=== PATIENT | male | born 1960 | race Two or more races ===

== ENCOUNTER 2024-05-02 14:03 | Outpatient (OUT) | payer OTHER, SELFPAY ==
--- NOTE | 2024-05-02 14:16 | ECG_ITS ---
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
--- NOTE | 2024-05-02 14:53 | XR_ITS ---
The [address] [address] Patient Name: NADINE KENNEY MRN: [id number] date: 1960 Sex: M Assigned Patient Location: [facility] Current Patient Location: Accession/Order Number: [id number] Exam Date: 05/02/2024 15:20 Report Date: 05/03/2024 07:15 At the request of: PEEWEE ABBOTT Procedure: XR chest 2V EXAMINATION: XR chest 2V HISTORY: Preop exam COMPARISON: No relevant comparison available. FINDINGS: LUNGS: No significant pulmonary parenchymal abnormalities. VASCULATURE: No increased pulmonary vasculature. PLEURA: No pneumothorax, effusion, or pleural thickening. CARDIAC: No cardiomegaly or cardiac silhouette abnormality. MEDIASTINUM: No visible mass or adenopathy. BONES: No fracture or visible bone lesion. OTHER: Negative. XR/XR chest 2V IMPRESSION: 1. No acute cardiopulmonary process. Electronically authenticated by: JUAN GARCÍA Date: 05/03/2024 07:15
--- NOTE | 2024-05-02 15:06 | P.GSHP_ITS ---
History of Present Illness History of Present Illness Chief complaint: elevated psa bph with obstruction Narrative: Patient presents for preadmission testing. The patient states he had an abnormal PSA followed by an abnormal prostate MRI. The patient states he has no hematuria or dysuria but does have frequency with urination which he attributes to taking a diuretic for extremity edema. Review of Systems ROS Narrative REVIEW OF SYSTEMS: Negative except as stated in HPI, ten or more systems reviewed. Constitutional: No fever, chills, weakness ENT: No sore throat or epistaxis Cardiovascular: No chest pain, palpitations, or activity intolerance Respiratory: No shortness of breath, cough, or wheezing Musculoskeletal: No joint pain or swelling Gastrointestinal: No abdominal pain, constipation, diarrhea, or vomiting Genitourinary: No dysuria or hematuria Neurological: No numbness, tingling, weakness, or headache Psychiatric: No mood changes PFSH PFS Medical History (Updated 05/02/24 @ 15:09 by Raina Sands NP) Abnormal prostate exam ?R39.89 - Other symptoms and signs involving the genitourinary system (ICD- 10) Arthritis ?M19.90 - Unspecified osteoarthritis, unspecified site (ICD-10) Cellulitis ?L03.90 - Cellulitis, unspecified (ICD-10) Sleep apnea ?G47.30 - Sleep apnea, unspecified (ICD-10) Depression ?F32.A - Depression, unspecified (ICD-10) BPH with urinary obstruction ?N40.1 - Benign prostatic hyperplasia with lower urinary tract symptoms (ICD- 10) ?N13.8 - Other obstructive and reflux uropathy (ICD-10) Elevated PSA ?R97.20 - Elevated prostate specific antigen [PSA] (ICD-10) Extremity edema ?R60.0 - Localized edema (ICD-10) High cholesterol ?E78.00 - Pure hypercholesterolemia, unspecified (ICD-10) Hypertension ?I10 - Essential (primary) hypertension (ICD-10) Surgical History (Updated 05/02/24 @ 14:53 by Raina Sands NP) H/O removal of cyst ?Z98.890 - Other specified postprocedural states (ICD-10) H/O gastric sleeve ?Z90.3 - Acquired absence of stomach [part of] (ICD-10) History of colonoscopy ?Z98.890 - Other specified postprocedural states (ICD-10) History of arthroscopy of shoulder ?Z98.890 - Other specified postprocedural states (ICD-10) History of arthroplasty of knee ?Z96.659 - Presence of unspecified artificial knee joint (ICD-10) Family History (Updated 05/02/24 @ 14:48 by Raina Sands NP) Other Cancer Family history of diabetes mellitus Family history of hypertension Family history of liver cancer Social History (Updated 05/02/24 @ 14:45 by Raina Sands NP) Within the past year, how often did you have a drink containing alcohol: 4 or more times a week Within the past year, how many standard drinks containing alcohol did you have on a typical day: 1 or 2 Total score: 0 Score interpretation: A score less than 4 is consistent with normal alcohol consumption. Smoking status: Former smoker Non-prescribed substance use: cannabis (any form) Highest level of school completed/degree received: high school graduate Meds Home Medications and Allergies Home Medications ?Medication ?Instructions ?Recorded ?Confirmed ?Type allopurinol 300 mg tablet 300 mg PO DAILY 05/02/24 05/02/24 History amlodipine 10 mg tablet 10 mg PO DAILY 05/02/24 05/02/24 History furosemide 40 mg tablet 40 mg PO DAILY 05/02/24 05/02/24 History losartan 100 mg tablet 100 mg PO DAILY 05/02/24 05/02/24 History metoprolol succinate 100 mg 100 mg PO DAILY 05/02/24 05/02/24 History tablet,extended release 24 hr multivitamin (Daily Multi-Vitamin 1 tab PO DAILY 05/02/24 05/02/24 History tablet) potassium chloride 10 mEq 10 meq PO DAILY 05/02/24 05/02/24 History capsule,extended release sertraline 25 mg tablet 25 mg PO DAILY 05/02/24 05/02/24 History tamsulosin 0.4 mg capsule 0.8 mg PO Q24H 05/02/24 05/02/24 History Allergies Allergy/AdvReac Type Severity Reaction Status Date / Time No Known Drug Allergies Allergy Verified 05/02/24 14:39 Exam Narrative Exam Narrative: Constitutional: Awake, alert, comfortable, well-appearing, nontoxic, interactive, vital signs as charted Head: Normocephalic, atraumatic Neck: Supple, normal appearance, normal range of motion, no meningeal signs, no lymphadenopathy Respiratory: No respiratory distress, breath sounds clear Cardiovascular: Regular rate and rhythm, strong and regular heart tones Abdomen: Nontender, normal bowel sounds, soft, no CVA tenderness Musculoskeletal: Normal gait, no swelling, 2+ pedal edema bilaterally Skin: No rashes or induration, no lesions, only visible skin inspected Neuro: No neurological deficits, normal sensation Psychiatric: Oriented ?3, normal affect Assessment and Plan Assessment and Plan (1) Elevated PSA: (2) BPH with urinary obstruction: (3) Abnormal prostate exam: Plan MRI fusion transrectal prostate biopsy scheduled with Dr. Pinto May 07, 2024.
[2024-05-02 15:17] LABS: Hematocrit 40.9 % (42.0-54.0); Hemoglobin 13.6 g/dL (14.0-18.0); Mean Corpuscular HGB Conc 33.3 g/dL (29.9-35.2); Mean Corpuscular Hemoglobin 32.1 pg (25.9-34.0); Mean Corpuscular Volume 96.5 fL (80.0-94.0); Mean Platelet Volume 9.8 fL (9.5-13.5); Platelet Count 246 10^3/uL (150-450); Red Blood Count 4.24 10^6/uL (4.70-6.10); White Blood Count 19.6 10^3/uL (4.0-11.0)
[2024-05-02 15:35] LABS: Anion Gap 10.8; BUN Creatinine Ratio 18.7; Calcium 8.9 mg/dL (8.5-10.1); Carbon Dioxide 31.2 mmol/L (21.0-32.0); Chloride 105 mmol/L (98-107); Estimated GFR (African America >60 (>=60); Estimated GFR (Non-African Ame >60 (>=60); Glucose 122 mg/dL (74-106); Sodium 143 mmol/L (136-145)
[2024-05-02 15:51] LABS: Band Neutrophils Absolute 0.4 10^3/uL (0.0-0.3); Monocytes Absolute Manual 0.19 10^3/uL (0.30-0.80)
[2024-05-02 15:52] LABS: Anisocytosis 1+; Smudge Cells SEEN
== END 2024-05-02 14:04 | disposition home or self-care (01) ==
PROVIDERS: Visit Provider Urology
DX: Z01.810 Encounter for preprocedural cardiovascular examination (principal); Z01.812 Encounter for preprocedural laboratory examination; Z01.818 Encounter for other preprocedural examination; R97.20 Elevated prostate specific antigen [PSA]; N40.1 Benign prostatic hyperplasia with lower urinary tract symptoms
CPT/HCPCS: 71046; 80048; 85007; 85027; 93005; G0463

== ENCOUNTER 2024-05-07 11:11 | Day surgery (SDC) | payer OTHER, SELFPAY ==
[2024-05-02 15:02] VITALS: BP 127/68; PULSE 62; TEMP 36.5; O2SAT 96; BMI 36.2
[2024-05-07] VITALS (9 sets, daily range): BP systolic 146–163; BP diastolic 78–106; PULSE 50–72; TEMP 36.3–36.4; O2SAT 93–98; BMI 36.2
--- OUTSIDE RECORDS SUMMARY | 2024-05-07 11:34 | XMS_ITS | CCD ---
Author Organization [facility] Care Team Providers Care Golf Course Manager Name Role Phone ADÁN FIGUEROA Unavailable Unavailable MERLOSISRAEL SMITH Unavailable Unavailable ADÁN FIGUEROA Unavailable Unavailable MERLOSISRAEL LAZARO Unavailable Unavailable ADÁN FIGUEROA Unavailable Unavailable ADÁN FIGUEROA Unavailable Unavailable MERLOS, ISRAEL Hood Unavailable Unavailable MERLOSISRAEL SMITH Primary Care Unavailable ISRAEL MERLOS Referring Unavailable ISRAEL MERLOS Primary Care Unavailable LEANN PENA Referring Unavailable ISRAEL MERLOS Primary Care Unavailable Israel Merlos Primary Care Provider Unavailab Les Reyes Attending Provider Unavailable Israel Merlos Primary Care Provider Unavail able MATEO JUAN Primary Care Physician Lo Michel Unavailable NINFA Michel Attending Provider DO Zion Gaffney Primary Care Provider JOSÉ MIGUEL DIXON Primary Care Physician HAO SIMS Primary Care Physician [phone] MD Millie Pinto Attending Provider [phone] NON STAFF Primary Care Provider Unavailming e NON STAFF Primary Care Unavailable Millie Pinto Attending Unavailable Millie Pinto Admitting Unavailable Rachel Lancaster Attending Unavailable Rachel Lancaster Attending Unavailable Millie Pinto. Attending Unavailable HAO SIMS Admitting UnavailHAO Fontenot Attending Unavailabl e NAHOMY DIXON Consulting Unavailabl e NICOLE JOSÉ MIGUEL A Consulting Unavailable NICOLE JOSÉ MIGUEL A Consulting Unavailable JOSÉ MIGUEL DIXON Consulting Unavailable NICOLE JOSÉ MIGUEL A Consulting Unavailable NICOLE, JOSÉ MIGUEL A Consulting Unavailable NICOLE, JOSÉ MIGUEL A Consulting Unavailable JOSÉ MIGUEL DIXON Consulting Unavailable JOSÉ MIGUEL DIXON Consulting Unavailable NICOLE, NAHOMY Vanegas Admitting Unavailming DIXON, NAHOMY Vanegas Attending Unavailming DIXON, NAHOMY Vanegas Admitting Unavailabl marimar DIXON, NAHOMY Vanegas Attending UnavailMillie Gonzalez Attending Unavailable HAO SIMS Attending HAO Monzon Attending UnavailHAO Fontenot Attending UnavailMATEO Camacho Attending Unavailable NICOLE, NAHOMY Vanegas Attending Rachel Porras Attending Unavailable Rachel Lancaster Attending Unavailable Rachel Lancaster Attending Unavailable Rachel Lancaster Attending Unavailable Rachel Lancaster Attending Unavailable Unavailable Unavailable Unavailable Medications Current Medications Medication Drug Class(es) Dates Sig (Normalized) Sig (Original) allopurinol 300 mg oral tablet (20 sources) Xanthine Oxidase Inhibitor Start: 12-24-2023 take 1 tablet by mouth once daily allopurinol 300 mg Tab 300 mg = 1 tab(s), Oral, Daily, # 90 tab(s), Refills(s) 3, Pharmacy: [facility], 170, cm, 12/24/23 11:32:00 EDT, Height/Length Dosing, 128.4, kg, 12/24/23 11:32:00 EDT, Weight Dosing Start Date: 12/24/23 Status: Ordered Start: 12-07-2022 take 1 tablet by sheryl th once daily allopurinol 300 mg Tab 300 mg = 1 tab(s), Oral, Daily, # 90 tab(s), Refills(s) 1, Pharmacy: [facility] [place] [id number], 170, cm, 12/07/22 9:04:00 EST, Height/Length Dosing, 136.7, kg, 12/07/22 9:04:00 EST, Weight Dosing Start Date: 12/07/22 Status: Ordered Start: 11-19-2019 take 100 mg by mouth once jessee y Allopurinol Active 100 MG Oral Daily November 19, 2019 7:55am Start: 11-19-2019 take 300 mg by mouth once daily in the morning Allopurinol Active 300 MG PO Every morning November 19, 2019 1:00am Start: 09-22-2019 take 1 tablet by sheryl th once daily allopurinol 300 mg Tab 300 mg = 1 tab(s), Oral, Daily, # 90 tab(s), Refills(s) 1, Pharmacy: [facility], 170, cm, 09/20/22 16:46:00 EST, Height/Length Dosing, 130, kg, 09/20/22 16:46:00 EST, Weight Dosing Start Date: 09/21/22 Status: Ordered take 300 mg by mouth once daily ALLOPURINOL PO Take 300 mg by mouth daily 0 Active amLODIPine 10 mg oral tablet (20 sources) Dihydropyridine Calcium Channel Kelly Start: 12-24-2023 End: 12-18-2024 take 1 tablet by mouth once daily amLODIPine 10 mg Tab 10 mg, Oral, Daily, X 90 day(s), # 90 tab(s), Refills(s) 3, Pharmacy: [facility], 170, cm, 12/24/23 11:32:00 EDT, Height/Length Dosing, 128.4, kg, 12/24/23 11:32:00 EDT, Weight Dosing Start Date: 12/24/23 Stop Date: 12/18/24 Status: Ordered Start: 09-22-2019 End: 06-05-2023 take 1 tablet by mouth once daily amLODIPine 10 mg Tab 10 mg, Oral, Daily, X 90 day(s), # 90 tab(s), Refills(s) 1, Pharmacy: [facility] [place] [id number], 170, cm, 12/07/22 9:04:00 EST, Height/Length Dosing, 136.7, kg, 12/07/22 9:04:00 EST, Weight Dosing Start Date: 12/07/22 Stop Date: 06/05/23 Status: Ordered calcium citrate 950 mg oral tablet (4 sources) Start: 11-19-2019 take 200 mg by mouth once daily Calcium Citrate Active 200 MG PO Daily November 19, 2019 1:00am dextromethorphan hydrobromide 3 mg/ml / promethazine hydrochloride 1.25 mg/ml oral solution (1 source) Phenothiazine, Uncompetitive N-fwexdq-K-aspartate Receptor Antagonist, Sigma-1 Agonist Start: 09-20-2022 take 5 mL by mouth every six hours for cough dextromethorphan -promethazine 15 mg-6.25 mg/5 mL Oral Syrup 5 mL 5 mL, Oral, q6hr for cough, 120 mL, Refill(s) 0, [facility], 170, cm, 09/20/22 16:46:00 EST, Height/Length Dosing, 130, kg, 09/20/22 16:46:00 EST, Weight Dosing Start Date: 09/20/22 Status: Ordered docusate sodium 100 mg oral capsule (2 sources) Start: 04-05-2020 take 1 capsule by mouth twice daily Docusate Sodium (Dok) 100 mg Capsule Active 100 MG PO Twice daily 0 April 05, 2020 12:00am fluticasone propionate 0.05 mg/actuat metered dose nasal spray (1 source) Corticosteroid Start: 03-03-2019 take 1 spray(s) nasal route once daily fluticasone (FLONASE) 50 MCG/ACT nasal spray Indications: Acute frontal sinusitis, recurrence not specified 1 spray by Each Nostril route daily 1 Bottle 0 03/03/2019 Active furosemide 40 mg oral tablet (20 sources) Loop Diuretic Start: 12-24-2023 take 1 tablet by mouth once daily furosemide 40 mg Tab 40 mg = 1 tab(s), Oral, Daily, # 90 tab(s), Refills(s) 2, Pharmacy: [facility], 170, cm, 12/24/23 11:32:00 EDT, Height/Length Dosing, 128.4, kg, 12/24/23 11:32:00 EDT, Weight Dosing Start Date: 12/24/23 Status: Ordered Start: 03-16-2020 take 1 tablet by sheryl th once daily furosemide 40 mg Tab 40 mg = 1 tab(s), Oral, Daily, # 90 tab(s), Refills(s) 1, Pharmacy: [facility] [place] [id number], 170, cm, 12/07/22 9:04:00 EST, Height/Length Dosing, 136.7, kg, 12/07/22 9:04:00 EST, Weight Dosing Start Date: 12/07/22 Status: Ordered Start: 11-19-2019 End: 12-30-2019 take 40 mg by mouth once daily Furosemide Discontinued 40 MG PO Daily November 19, 2019 1:00am December 30, 2019 11:52pm take 1 mL by mouth twice daily F urosemide 40 MG/4ML 1 ml Orally Twice a day Not-Taking take 1 tablet by sheryl th twice daily furosemide (LASIX) 40 MG tablet Take 40 mg by mouth 2 times daily 0 Active hydroCHLOROthiazide 25 mg oral tablet (8 sources) Thiazide Diuretic Start: 04-05-2020 take 25 mg by mouth once daily in the morning Hydrochlorothiazide Active 25 MG PO Every morning 0 April 05, 2020 1:00pm Start: 03-25-2020 End: 04-05-2020 take 50 mg by mouth once daily in the morning Hydrochlorothiazide Discontinued 50 MG PO Every morning March 25, 2020 12:00am April 05, 2020 1:01pm Start: 03-22-2020 End: 03-25-2020 take 50 mg by mouth once daily Hydrochlorothiazide Discontinued 50 MG PO Daily March 22, 2020 12:00am March 25, 2020 3:29pm take 0.5 tablet [address] [facility] once daily hydroCHLOROthiazide 50 MG 1/2 tablet Orally Once a day for 30 day(s) Not-Taking take 1 tablet by sheryl once daily hydrochlorothiazide (HYDRODIURIL) 25 MG tablet Take 25 mg by mouth daily 0 Active ibuprofen 800 mg oral tablet (4 sources) Nonsteroidal Anti-inflammatory Drug Start: 09-20-2022 take 1 tablet by mouth every eight hours ibuprofen 800 mg Tab 800 mg = 1 tab(s), Oral, q8hr, # 30 tab(s), Refills(s) 0, Pharmacy: [facility], 170, cm, 09/20/22 16:46:00 EST, Height/Length Dosing, 130, kg, 09/20/22 16:46:00 EST, Weight Dosing Start Date: 09/20/22 Status: Ordered Start: 05-10-2017 take 1 tablet by sheryl every eight hours Ibuprofen 800 MG 1 tablet with food or milk Orally Three times a day for 30 day(s) May, Not-Taking LORazepam 0.5 mg oral tablet (6 sources) Benzodiazepine Start: 02-18-2024 take 0.25 mg by mouth twice daily Ativan 0.5 mg Tab 0.25 mg = 0.5 tab(s), Oral, BID, # 60 tab(s), Refills(s) 0, Pharmacy: [facility], 170, cm, 02/18/24 11:02:00 EDT, Height/Length Dosing, 121, kg, 02/18/24 11:02:00 EDT, Weight Dosing Start Date: 02/18/24 Status: Ordered losartan potassium 100 mg oral tablet (20 sources) Angiotensin 2 Receptor Kelly Start: 12-24-2023 End: 09-19-2024 take 1 tablet by mouth once daily losartan 100 mg Tab 100 mg, Oral, Daily, X 90 day(s), # 90 tab(s), Refills(s) 2, Pharmacy: [facility], 170, cm, 12/24/23 11:32:00 EDT, Height/Length Dosing, 128.4, kg, 12/24/23 11:32:00 EDT, Weight Dosing Start Date: 12/24/23 Stop Date: 09/19/24 Status: Ordered Start: 06-11-2022 End: 06-05-2023 take 1 tablet by mouth once daily losartan 100 mg Tab 100 mg, Oral, Daily, X 90 day(s), # 90 tab(s), Refills(s) 1, Pharmacy: [facility] [place] [id number], 170, cm, 12/07/22 9:04:00 EST, Height/Length Dosing, 136.7, kg, 12/07/22 9:04:00 EST, Weight Dosing Start Date: 12/07/22 Stop Date: 06/05/23 Status: Ordered Start: 04-05-2020 take 50 mg by mouth once daily in the morning Losartan Active 50 MG PO Every morning 0 April 05, 2020 1:00pm Start: 09-22-2019 End: 04-05-2020 take 100 mg by mouth once daily in the morning Losartan Discontinued 100 MG PO Every morning November 19, 2019 1:00am April 05, 2020 1:01pm Losartan Potassi um 100 MG 1/2 Orally Once a day Active take 100 mg by mouth once daily Losartan Potassium (COZAAR PO) Take 100 mg by mouth daily 0 Active 24 hr metoprolol succinate 100 mg extended release oral tablet (20 sources) beta-Adrenergic Kelly Start: 12-24-2023 End: 12-18-2024 take 1 tablet by mouth once daily metoprolol 100 mg ER Tab 100 mg = 1 tab(s), Oral, Daily, X 90 day(s), # 90 tab(s), Refills(s) 3, Pharmacy: [facility], 170, cm, 12/24/23 11:32:00 EDT, Height/Length Dosing, 128.4, kg, 12/24/23 11:32:00 EDT, Weight Dosing Start Date: 12/24/23 Stop Date: 12/18/24 Status: Ordered Start: 09-22-2019 End: 06-05-2023 take 1 tablet by mouth once daily metoprolol 100 mg ER Tab 100 mg = 1 tab(s), Oral, Daily, X 90 day(s), # 90 tab(s), Refills(s) 1, Pharmacy: [facility] [place] [id number], 170, cm, 12/07/22 9:04:00 EST, Height/Length Dosing, 136.7, kg, 12/07/22 9:04:00 EST, Weight Dosing Start Date: 12/07/22 Stop Date: 06/05/23 Status: Ordered Metoprolol Succi wade Active take 100 mg by mouth twice daily Metoprolol Succinate (TOPROL XL PO) Take 100 mg by mouth 2 times daily 0 Active Multi Complete (1 source) Multi Complete A ctive Multi Vitamin+ (17 sources) Start: 09-22-2019 Multi Vitamin+ Refill(s) 0, Prophylaxis Start Date: 09/22/19 Status: Ordered Start: 09-22-2019 Multi Vitamin+ Refill(s) 0 Start Date: 09/22/19 Status: Ordered Multiple Vitamins-Minerals (THERAPEUTIC MULTIVITAMIN-MINERALS) tablet (1 source) take 1 tablet by mouth once daily Multiple Vitamins-Minerals (THERAPEUTIC MULTIVITAMIN-MINERALS) tablet Take 1 tablet by mouth daily 0 Active Multivitamin (Multiple Vitamins) Tablet (2 sources) Start : 11-19 take 1 tablet by mouth once daily Multivitamin (Multiple Vitamins) Tablet Active 1 TAB PO Daily November 19, 2019 1:00am Multivitamin preparation (2 sources) Start : 11-19 take 1 tablet by mouth once daily Multivitamin Active 1 TAB Oral Daily November 19, 2019 8:00am Oflgoqyvgjgk-Tpe-Ouvz-Fa-Vit K (Bariatric Multivitamins) 45 mg iron- 800 mcg-120 mcg Capsule (2 sources) Start : 03-16 take 1 capsule by mouth once daily in the morning Nprpfmyspsje-Kbt-Bbej-Fa-Vi t K (Bariatric Multivitamins) 45 mg iron- 800 mcg-120 mcg Capsule Active 1 CAP PO Every morning March 16, 2020 12:00am oxyCODONE hydrochloride 5 mg oral tablet (6 sources) Opioid Agonist Start : 03-25 End: 04-05 take 5 mg by mouth every four hours Oxycodone Active 5 MG PO Every 4 hours 0 April 05, 2020 Start: 03-25-2020 End: 04-05-2020 take 10 mg by mouth every four hours Oxycodone Discontinued 10 MG PO Every 4 hours March 25, 2020 April 05, 2020 1:01pm polymyxin b [id number] unt/ml / trimethoprim 1 mg/ml ophthalmic solution (3 sources) Dihydrofolate Reductase Inhibitor Antibacterial, Polymyxin-class Antibacterial Start: 11-15-2022 take 1 drop(s) into the eye(s) four times daily polymyxin B-trimethoprim Opth Estrella 1 drop(s), Eye-Both, QID, 10 mL, Refill(s) 0, [facility], 170, cm, 11/15/22 15:50:00 EST, Height/Length Dosing, 134.3, kg, 11/15/22 15:50:00 EST, Weight Dosing Start Date: 11/15/22 Status: Ordered sertraline 25 mg oral tablet (6 sources) Serotonin Reuptake Inhibitor Start: 02-18-2024 take 1 tablet by mouth once daily Zoloft 25 mg Tab 25 mg = 1 tab(s), Oral, Daily, # 30 tab(s), Refills(s) 3, Pharmacy: [facility], 170, cm, 02/18/24 11:02:00 EDT, Height/Length Dosing, 121, kg, 02/18/24 11:02:00 EDT, Weight Dosing Start Date: 02/18/24 Status: Ordered tamsulosin hydrochloride 0.4 mg oral capsule (20 sources) alpha-Adrenergic Kelly Start: 12-24-2023 take 2 capsules by mouth once daily tamsulosin 0.4 mg Cap 0.8 mg = 2 cap(s), Oral, Daily, # 180 cap(s), Refills(s) 3, Pharmacy: [facility], 170, cm, 12/24/23 11:32:00 EDT, Height/Length Dosing, 128.4, kg, 12/24/23 11:32:00 EDT, Weight Dosing Start Date: 12/24/23 Status: Ordered Start: 06-11-2022 End: 12-08-2022 take 2 capsules by mouth once daily tamsulosin 0.4 mg Cap 0.8 mg = 2 cap(s), Oral, Daily, # 180 cap(s), Refills(s) 1, Pharmacy: [facility] [place] [id number], 170, cm, 12/07/22 9:04:00 EST, Height/Length Dosing, 136.7, kg, 12/07/22 9:04:00 EST, Weight Dosing Start Date: 12/07/22 Status: Ordered Start: 12-05-2021 take 2 capsules by m [facility] once daily tamsulosin 0.4 mg Cap 0.8 mg = 2 cap(s), Oral, Daily, # 60 cap(s), Refills(s) 0, Pharmacy: [facility], 170, cm, 12/05/21 15:51:00 EST, Height/Length Dosing, 129, kg, 12/05/21 15:51:00 EST, Weight Dosing Start Date: 12/05/21 Status: Ordered Start: 11-19-2019 take 0.8 mg by mouth once jessee y Tamsulosin Active 0.8 MG Oral Daily November 19, 2019 7:55am Start: 11-19-2019 take 0.4 mg by mouth once jessee y Tamsulosin Active 0.4 MG PO Daily November 19, 2019 1:00am Tamsulosin HCl A ctive take 1 capsule by mo uth once daily tamsulosin (FLOMAX) 0.4 MG capsule Take 0.4 mg by mouth daily 0 Active Ventolin HFA 90 mcg/inh Aerosol-Adpt (3 sources) Start: 09-20-2022 take 2 puff(s) by inhalation four times daily for wheezing Ventolin HFA 90 mcg/inh Aerosol-Adpt 2 puff(s), Inhalation, QID for wheezing, 18 gram, Refill(s) 0, [email or web address], 170, cm, 09/20/22 16:46:00 EST, Height/Length Dosing, 130, kg, 09/20/22 16:46:00 EST, Weight Dosing Start Date: 09/20/22 Status: Ordered Completed/Discontinued Medications Medication Drug Class(es) Dates Sig (Normalized) Sig (Original) acetaminophen 325 mg / oxyCODONE hydrochloride 5 mg oral tablet (1 source) Opioid Agonist Start: 03-17-2020 take 1-2 tablets by mouth every four to six hours as needed for pain Percocet 5-325 MG 1-2 tablet as needed for pain Orally every 4-6 hrs for 7 days DO NOT FILL UNTIL 03/21/2020 NEEDED FOR POST OP PAIN. Mar, Not-Taking amoxicillin 500 mg oral capsule (1 source) Penicillin-class Antibacterial Start: 08-02-2020 Amoxicillin 500 MG 6 tabs 1 hour prior to dental and 3 tabs 6hours after dental Orally as directed for 1 days Aug, Not-Taking Bariatric Multivitamins/Iron (1 source) Bariatric Multivitamins/Iron Not-Taking cephalexin 500 mg oral capsule (4 sources) Cephalosporin Antibacterial Start: 11-19-2019 End: 12-30-2019 take 500 mg by mouth every twelve hours Cephalexin Discontinued 500 MG PO Q12H November 19, 2019 1:00am December 30, 2019 11:52pm Start: 12-18-2017 take 1 capsule by [facility] every eight hours Keflex 500 MG 1 capsule Orally every 8 hrs for 10 day(s) Nov, Not-Taking diclofenac sodium 75 mg delayed release oral tablet (4 sources) Nonsteroidal Anti-inflammatory Drug Start: 12-25-2017 take 1 tablet by mouth every twelve hours Diclofenac Sodium 75 MG 1 tablet Orally Twice a day for 30 day(s) Mar, Not-Taking Start: 03-19-2017 Voltaren 1 % 1 -2 gm to affected area(s) Transdermal twice daily May, Not-Taking hydroCHLOROthiazide 12.5 mg / lisinopril 10 mg oral tablet (4 sources) Thiazide Diuretic, Angiotensin Converting Enzyme Inhibitor Start: 11-19-2019 End: 03-22-2020 take 1 tablet by mouth once daily in the morning Lisinopril-Hydrochlorothiazide Discontinued 1 TAB PO Every morning November 19, 2019 1:00am March 22, 2020 1:40pm hydrOXYzine pamoate 50 mg oral capsule (5 sources) Antihistamine Start: 03-25-2020 End: 04-05-2020 take 25 mg by mouth every three hours Hydroxyzine Pamoate Discontinued 25 MG PO Q3H March 25, 2020 12:00am April 05, 2020 1:01pm Start: 03-25-2020 End: 04-05-2020 take 50 mg by mouth every three hours Hydroxyzine Pamoate Discontinued 50 MG PO Q3H March 25, 2020 12:00am April 05, 2020 1:01pm Start: 03-17-2020 take 1 capsule by mo ut every eight hours as needed for muscle spasms Vistaril 25 MG 1 capsule as needed for muscle spasm Orally every 8 hrs Do not fill until 03/21/2020. To be used post op TKA Mar, Not-Taking ketorolac tromethamine 10 mg oral tablet (3 sources) Nonsteroidal Anti-inflammatory Drug, Cyclooxygenase Inhibitor Start: 11-19-2019 End: 12-30-2019 take 10 mg by mouth every six hours Ketorolac Discontinued 10 MG PO Q6H 10 5 November 19, 2019 1:00am December 30, 2019 11:52pm naproxen 500 mg oral tablet (1 source) Nonsteroidal Anti-inflammatory Drug take 1 tablet by mouth twice daily Naproxen Sodium 500 mg 1 tablet Orally Twice a day for 10 days Not-Taking polyethylene glycol 3350 [id number] mg / potassium chloride 1480 mg / sodium bicarbonate 5720 mg / sodium chloride 28256 mg powder for oral solution (2 sources) Osmotic Laxative Start: 10-18-2022 Rudolph Lancaster oral powder for reconstitution See Instructions, 1 EA, Refill(s) 0, Prior to colonoscopy., [facility], 170, cm, 10/18/22 12:08:00 EST, Height/Length Dosing, 136.9, kg, 10/18/22 12:08:00 EST, Weight Dosing Start Date: 10/18/22 Status: Ordered potassium chloride 10 meq extended release oral capsule (20 sources) Start: 01-31-2024 take 1 capsule by mouth once daily potassium chloride 10 mEq Cap-ER 10 mEq = 1 cap(s), Oral, Daily, # 90 cap(s), Refills(s) 3, Pharmacy: [facility], 170, cm, 12/24/23 11:32:00 EDT, Height/Length Dosing, 128.4, kg, 12/24/23 11:32:00 EDT, Weight Dosing Start Date: 01/31/24 Status: Ordered Start: 12-24-2023 take 1 capsule by [facility] once daily potassium chloride 10 mEq Cap-ER 10 mEq = 1 cap(s), Oral, Daily, # 90 cap(s), Refills(s) 3, Pharmacy: [facility], 170, cm, 12/24/23 11:32:00 EDT, Height/Length Dosing, 128.4, kg, 12/24/23 11:32:00 EDT, Weight Dosing Start Date: 12/24/23 Status: Ordered Start: 06-11-2022 End: 12-08-2022 take 1 capsule by mouth once daily potassium chloride 10 mEq Cap-ER 10 mEq = 1 cap(s), Oral, Daily, # 90 cap(s), Refills(s) 1, Pharmacy: [facility] [place] [id number], 170, cm, 12/07/22 9:04:00 EST, Height/Length Dosing, 136.7, kg, 12/07/22 9:04:00 EST, Weight Dosing Start Date: 12/07/22 Status: Ordered Start: 03-16-2020 End: 04-05-2020 take 10 mEq by mouth once daily in the morning Potassium Chloride Discontinued 10 MEQ PO Every morning March 16, 2020 12:00am April 05, 2020 1:01pm Start: 09-22-2019 take 1 capsule by [facility] twice daily potassium chloride 10 mEq Cap-ER mEq cap(s), Oral, BID, Refills(s) 0 Start Date: 09/22/19 Status: Ordered Start: 09-22-2019 take 1 capsule by [facility] twice daily potassium chloride 10 mEq Cap-ER mEq cap(s), Oral, BID, Refills(s) 0 Start Date: 09/22/19 Status: Ordered Potassium Chlori de Active [facility] Potassium Chloride (K-TAB PO) Take 10 mEq by mouth daily 0 Active Potassium gluconate (1 source) Potassium Glucon ate Not-Taking predniSONE 10 mg oral tablet (1 source) predniSONE 10 MG (Prior Auth: Rx Ref#:[id number]) Oral for 8 Not-Taking rivaroxaban 10 mg oral tablet (3 sources) Factor Xa Inhibitor Start: 0 End: 0 take 1 tablet by mouth once daily Rivaroxaban (Xarelto) 10 mg Tablet Discontinued 10 MG PO Daily March 25, 2020 12:00am April 05, 2020 1:01pm Triamcinolone (6 sources) Corticosteroid Start: 8 Kenalog -40 mg Jul, 40 mg Start: 12-18-2017 Kenalog -40 mg Nov, Start: 05-10-2017 Kenalog -40 mg May, 40 mg valsartan 320 mg oral tablet (1 source) Angiotensin 2 Receptor Kelly Valsartan 320 MG Ora lly Not-Taking Vitamin D3 (1 source) Vitamin D3 Not-T aking Zinc (1 source) Zinc Not-Taking Problems Active Problems Problem Classification Problem Date Documented Date Episodic/Chronic Adjustment disorders (8 sources) Adjustment disorder with mixed disturbance of emotions AND conduct; Translations: [Adjustment disorder with mixed disturbance of emotions and conduct] Onset: 03-21-2024 Chronic Administrative/social admission (2 sources) Other reduced mobility; Translations: [Impaired mobility and activities of daily living] 03-26-2020 Episodic Anxiety disorders (8 sources) Anxiety disorder; Translations: [Anxiety disorder, unspecified] Onset: 02-18-2024 Chronic Bacterial infection; unspecified site (1 source) Bacterial infectious disease; Translations: [Other specified bacterial agents as the cause of diseases classified elsewhere] Onset: 11-15-2022 Episodic Deficiency and other anemia (12 sources) Anemia; Translations: [Anemia, unspecified] 03-26-2020 Episodic E Codes: Fall (2 sources) Fall; Translations: [Unspecified fall, initial encounter] 03-26-2020 Episodic Essential hypertension (20 sources) Essential hypertension; Translations: [Hypertensive disorder] Onset: 09-26-2017 Resolved: 06-01-2022 Chronic External cause codes: Fall (11 sources) Fall; Translations: [Fall by pediatric patient] 11-28-2023 Gout and other crystal arthropathies (12 sources) Gout; Translations: [Gout, unspecified] 03-26-2020 Chronic Hyperplasia of prostate (20 sources) Benign prostatic hypertrophy with outflow obstruction; Translations: [Benign prostatic hyperplasia with lower urinary tract symptoms] Onset: 12-07-2022 09-22-2019 Chronic Influenza (16 sources) Influenza; Translations: [Influenza due to other identified influenza virus with other respiratory manifestations] Onset: 09-20-2022 Episodic Mood disorders (14 sources) Depressive disorder; Translations: [Depression, unspecified] Onset: 02-18-2024 Chronic Open wounds of head; neck; and trunk (13 sources) Facial laceration ; Translations: [Laceration without foreign body of unspecified eyelid and periocular area, initial encounter] 03-26-2020 Episodic Osteoarthritis (4 sources) Osteoarthritis of wrist; Translations: [Primary osteoarthritis, 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 Other connective tissue disease (16 sources) History of total knee arthroplasty; Translations: [Presence of artificial knee joint, bilateral] 03-26-2020 Chronic Other connective tissue disease (1 source) Triggering of digit; Translations: [Trigger finger, left little finger] Episodic Other diseases of bladder and urethra (6 sources) Male urethral stricture; Translations: [Unspecified urethral stricture, male, unspecified site] Onset: 03-06-2024 Episodic Other nervous system disorders (2 sources) Postoperative pain ; Translations: [Other acute postprocedural pain] 03-26-2020 Episodic Other nutritional; endocrine; and metabolic disorders (1 source) Morbid (severe) obesity due to excess calories; Translations: [Morbid (severe) obesity due to excess calories] Onset: 09-05-2018 Chronic Other nutritional; endocrine; and metabolic disorders (1 source) Body mass index (BMI) 45.0-49.9, adult; Translations: [Body mass index (BMI) 45.0-49.9, adult] Onset: 09-05-2018 Chronic Other nutritional; endocrine; and metabolic disorders (1 source) Morbid obesity Chronic Other nutritional; endocrine; and metabolic disorders (2 sources) Body mass index 30+ - obesity; Translations: [Body mass index (BMI) 39.0-39.9, adult] Onset: 04-02-2019 04-02-2019 Chronic Other nutritional; endocrine; and metabolic disorders (4 sources) Body mass index 40+ - severely obese; Translations: [Body mass index (BMI) 45.0-49.9, adult] Onset: 09-05-2018 Resolved: 04-02-2019 04-02-2019 Chronic Other nutritional; endocrine; and metabolic disorders (3 sources) Obese class II; Translations: [Body mass index (BMI) 38.0-38.9, adult] Onset: 06-19-2023 Chronic Other nutritional; endocrine; and metabolic disorders (1 source) Obese class I; Translations: [Body mass index (BMI) 33.0-33.9, adult] Chronic Other nutritional; endocrine; and metabolic disorders (1 source) Body mass index (BMI) 39.0-39.9, adult Onset: 06-01-2022 Resolved: 06-01-2022 Chronic Other screening for suspected conditions (not mental disorders or infectious disease) (6 sources) Raised prostate specific antigen; Translations: [Elevated prostate specific antigen [PSA]] Onset: 03-06-2024 Episodic Pneumonia (except that caused by tuberculosis or sexually transmitted disease) (1 source) Pneumonia; Translations: [Healthcare-associate d pneumonia] Episodic Residual codes; unclassified (13 sources) Obstructive sleep apnea syndrome; Translations: [Obstructive sleep apnea (adult) (pediatric)] Onset: 09-26-2017 Chronic Residual codes; unclassified (1 source) Obstructive sleep apnea (adult) (pediatric) Onset: 06-01-2022 Resolved: 06-01-2022 Chronic Residual codes; unclassified (4 sources) Patient encounter status; Translations: [Encounter for prophylactic measures, unspecified] Onset: 06-09-2022 03-26-2020 Episodic Residual codes; unclassified (15 sources) Bilateral lower limb edema 06-11-2022 Episodic Residual codes; unclassified (20 sources) Family history of cancer of colon 10-18-2022 Episodic Residual codes; unclassified (20 sources) Family history of polyp of colon 10-18-2022 Episodic Skin and subcutaneous tissue infections (2 sources) Erysipelas; Translations: [ERYSIPELAS] Episodic Unclassified (14 sources) Patient encounter status 10-18-2022 Past or Other Problems Problem Classification Problem Date Documented Da te Episodic/Chronic Inflammation; infection of eye (except that caused by tuberculosis or sexually transmitteddisease) (12 sources) Conjunctivitis; Translations: [Unspecified conjunctivitis] Onset: 11-15-2022 Episodic Other and unspecified benign neoplasm (12 sources) Polyp of colon; Translations: [Polyp of colon] Onset: 12-25-2022 Episodic Other diseases of kidney and ureters (13 sources) Urinary tract obstruction; Translations: [Other obstructive and reflux uropathy] Onset: 12-07-2022 Episodic Residual codes; unclassified (13 sources) Localized edema; Translations: [Localized edema] Onset: 12-07-2022 Episodic Results Test Name Value Interpretation Reference Range Facil ity ISTAT XRay CREon 04-22-2024 ISTAT GFR > 60.0 Normal [facility] Comment on above: Result Comment: PERF ORMED BY: [place] [address] PATHOLOGIST [employer]ES REPAIRER DOMINGO WILKINSON M.D. Performed By: #### I SCRE #### [address] MR prostate wo/w conon 04-22 MR prostate wo/w con [facility] Main [place] [address] [place] [address] MRI Report Signed Patient: Nadine Jones JR MR#: [id number] : 1960 Acct:[id number] Age/Sex: 64 / M ADM Date: 04/22/24 Loc: Room: Type: [facility] Attending Dr: Millie Pinto MD Copies to: Millie Pinto MD Ordering Provider: Millie Pinto MD Date of Service: 04/22/24 MR/MR prostate wo/w con: R97.20 EXAMINATION: MR prostate wo/w con HISTORY: COMPARISON: NONE TECHNIQUE: Multiparametric imaging of the prostate gland was performed with IV contrast. FINDINGS: Prostate Dimensions: 5.8 x 4.4 x 5.8 cm. Prostate Volume: 77 mL Peripheral Zone: Heterogenous inT2 signal suggestive of prior prostatitis. There is diffuse T2 hypointensity involving the left aspect of the peripheral zone measuring 4.0 x 2.6 cm in greatest axial dimensions from apex to base with associated restricted diffusion and low ADC value. There is capsular bulging suggestive of extraprostatic extension. There is likely invasion into the transitional zone as well. Central/Transitional Zone: BPH changes. Seminal Vesicles: There appears to be invasion involving the base of the left seminal vesicle. Neurovascular bundles: Left neurovascular bundle involvement. Lymphadenopathy: No evidence of lymphadenopathy. Bladder: No focal lesion. Bowel: The visualized bowel is without acute abnormality. Peritoneal Cavity: Right iliopsoas bursitis. Bilateral fat filled inguinal hernias. Bones: No suspicious bony lesion. MR/MR prostate wo/w con IMPRESSION: There is diffuse T2 hypointensity involving the left aspect of the peripheral zone measuring 4.0 x 2.6 cm in greatest axial dimensions from apex to base with associated restricted diffusion and low ADC value. There is capsular bulging suggestive of extraprostatic extension with the left seminal vesicle and neurovascular bundle involvement. There is likely invasion into the transitional zone as well. PI-RADS 5. Targeting of this area on biopsy is recommended. Impression dictated by: Leandro Ceballos Jr., D.OCarmenza04/22/2024 2:50 PM Dictation Location: [facility]14 Transcribed By: [facility] 04/22/24 1450 Dictated By: Leandro Ceballos Jr, DO 04/22/24 1436 Signed By: 04/22/24 1450 Normal [facility] No Panel InformationOrdered By: Millie Pinto on 04-22-2024 Bedside Estimated GFR (eGFR) > 60.0 [facility] Whole blood creatinine measu rementOrdered By: Millie Pinto on 04-22-2024 Creatinine [Mass/Vol] 0.9 mg/dL Normal 0.6-1.3 [facility] Comment on above: ER/ESD physician is notified/shown all ISTAT results.Critical values may be confirmed by laboratory testing ifdeemed necessary by ER attending doctor. Result Comment: ER/E SD physician is notified/shown all ISTAT results. Critical values may be confirmed by laboratory testing if deemed necessary by ER attending doctor. Performed By: #### I SCRE #### [facility] [address] [place] [address] Ambulatory Visit Summaryon 0 03-31-2024 Ambulatory Visit Summary Ambulatory Visit Summary NADINE JONES JR :1960 Visit Date:03/31/2024 Ambulatory Visit Instructions Your Diagnosis Adjustment disorder with mixed disturbance of emotions AND conduct Your Care Team Attending Physician - Rachel Mayers Primary Care Physician - SERA DEL VALLE This Is Your Medications List allopurinol (allopurinol 300 mg Tab) amlodipine (amLODIPine 10 mg Tab) furosemide (furosemide 40 mg Tab) lorazepam (Ativan 0.5 mg Tab) losartan (losartan 100 mg Tab) metoprolol (metoprolol 100 mg ER Tab) multivitamin (Multi Vitamin+) potassium chloride (potassium chloride 10 mEq Cap-ER) sertraline (Zoloft 25 mg Tab) tamsulosin (tamsulosin 0.4 mg Cap) Procedures Performed Colonoscopy (12/25/2022), Optical urethrotomy (11/19/2019), Cystourethroscopy with dilation of urethral stricture (10/02/2019), Gastric sleeve, Knee replacement, Shoulder. What to do next Scheduled Follow-Up Appointments Sunday 10:00 AM EDT With: Rachel Mayers Where: [facility] Normal [address] [place] [address]-\.br\ Medications\.br\ What How Much When Why Instructions\.br\ Unchanged allopurinol (allopurinol 300 mg Tab) 1 Tablets By Mouth Every day\.br\ Unchanged amlodipine (amLODIPine 10 mg Tab) 10 Milligram By Mouth Every day Duration: 90 Days\.br\ Unchanged furosemide (furosemide 40 mg Tab) 1 Tablets By Mouth Every day\.br\ Unchanged lorazepam (Ativan 0.5 mg Tab) 0.5 Tablets By Mouth 2 times a day Depression Anxiety Non-smoker BMI 40.0-44.9, adult\.br\ Unchanged losartan (losartan 100 mg Tab) 100 Milligram By Mouth Every day Duration: 90 Days\.br\ Unchanged metoprolol (metoprolol 100 mg ER Tab) 1 Tablets By Mouth Every day Duration: 90 Days\.br\ Unchanged multivitamin (Multi Vitamin+)\.br\ Unchanged potassium chloride (potassium chloride 10 mEq Cap-ER) 1 Capsules By Mouth Every day\.br\ Unchanged sertraline (Zoloft 25 mg Tab) 1 Tablets By Mouth Every day Depression Anxiety Non-smoker BMI 40.0-44.9, adult\.br\ Unchanged tamsulosin (tamsulosin 0.4 mg Cap) 2 Capsules By Mouth Every day\.br\ Allergies\.br\ No Known Allergies\.br\ Problems\.br\ Ongoing - Any problem that you are currently receiving treatment for.\.br\ Adjustment disorder with mixed disturbance of emotions AND conduct\.br\ Anemia\.br\ Anxiety\.br\ Benign prostatic hyperplasia with outflow obstruction\.br\ Bilateral lower extremity edema\.br\ BPH with urinary obstruction\.br\ Conjunctivitis\.b r\ Depression\.br\ Elevated PSA\.br\ Facial laceration\.br\ Fall\.br\ Family history of cancer of colon\.br\ Family history of colon cancer\.br\ Family history of colonic polyps\.br\ Family history of polyp of colon\.br\ Gout\.br\ History of total knee arthroplasty.\.br \ Hypertension\.br\ Influenza A\.br\ Localized edema\.br\ Major depression, single episode\.br\ Obstructive sleep apnea syndrome\.br\ Polyp of colon\.br\ Screen for colon cancer\.br\ Unspecified urethral stricture, male, unspecified site\.br\ Urinary tract obstruction\.br\ Patient Survey\.br\ You may receive a survey via text or e-mail asking about your office visit. Please share your experience with us by completing your survey. We appreciate your feedback and thank you for choosing us for your care.\.br\ \.br\ [facility] Screenson 03-07-2024 Screens [id number] Normal [facility] Screens [id number] F Normal [facility] Ambulatory Visit Summaryon 0 03-06-2024 Ambulatory Visit Summary NADINE JONES JR :1960 Visit Date:03/06/2024 Ambulatory Visit Instructions Your Diagnosis Elevated PSA BPH with urinary obstruction Unspecified urethral stricture, male, unspecified site Tests Performed MRI Pelvis (Soft Tissue) w/ + w/o contrast -- Results Pending -- Please visit your patient portal for your results or contact your primary care physician. Your Care Team Attending Physician - Blair ROGERS, Millie Acevedo Primary Care Physician - SERA DEL VALLE This Is Your Medications List Contact prescribing physician if questions or concerns allopurinol (allopurinol 300 mg Tab) amlodipine (amLODIPine 10 mg Tab) furosemide (furosemide 40 mg Tab) lorazepam (Ativan 0.5 mg Tab) losartan (losartan 100 mg Tab) metoprolol (metoprolol 100 mg ER Tab) multivitamin (Multi Vitamin+) potassium chloride (potassium chloride 10 mEq Cap-ER) sertraline (Zoloft 25 mg Tab) tamsulosin (tamsulosin 0.4 mg Cap) Procedures Performed Colonoscopy (12/25/2022), Optical urethrotomy (11/19/2019), Cystourethroscopy with dilation of urethral stricture (10/02/2019), Gastric sleeve, Knee replacement, Shoulder. Discharge Vitals Height 180 cm Height 71 in Weight 122.3 kg Weight 269.06 lb BMI 37.75 What to do next Scheduled Follow-Up Appointments Sunday 9:00 AM EDT [facility] Normal [address] [place] [address]-\.br\ You Need to Schedule the Following Appointments\.br\ Follow Up with Blair ROGERS, Millie Acevedo, URL, URO When: \.br\ Where:\.br\ Medications\.br\ What How Much When Why Instructions\.br\ Unchanged allopurinol (allopurinol 300 mg Tab) 1 Tablets By Mouth Every day Contact prescribing physician if questions or concerns \.br\ Unchanged amlodipine (amLODIPine 10 mg Tab) 10 Milligram By Mouth Every day Duration: 90 Days Contact prescribing physician if questions or concerns \.br\ Unchanged furosemide (furosemide 40 mg Tab) 1 Tablets By Mouth Every day Contact prescribing physician if questions or concerns \.br\ Unchanged lorazepam (Ativan 0.5 mg Tab) 0.5 Tablets By Mouth 2 times a day Depression Anxiety Non-smoker BMI 40.0-44.9, adult Contact prescribing physician if questions or concerns \.br\ Unchanged losartan (losartan 100 mg Tab) 100 Milligram By Mouth Every day Duration: 90 Days Contact prescribing physician if questions or concerns \.br\ Unchanged metoprolol (metoprolol 100 mg ER Tab) 1 Tablets By Mouth Every day Duration: 90 Days Contact prescribing physician if questions or concerns \.br\ Unchanged multivitamin (Multi Vitamin+) Contact prescribing physician if questions or concerns \.br\ Unchanged potassium chloride (potassium chloride 10 mEq Cap-ER) 1 Capsules By Mouth Every day Contact prescribing physician if questions or concerns \.br\ Unchanged sertraline (Zoloft 25 mg Tab) 1 Tablets By Mouth Every day Depression Anxiety Non-smoker BMI 40.0-44.9, adult Contact prescribing physician if questions or concerns \.br\ Unchanged tamsulosin (tamsulosin 0.4 mg Cap) 2 Capsules By Mouth Every day Contact prescribing physician if questions or concerns \.br\ Allergies\.br\ No Known Allergies\.br\ Problems\.br\ Ongoing - Any problem that you are currently receiving treatment for.\.br\ Anemia\.br\ Anxiety\.br\ Benign prostatic hyperplasia with outflow obstruction\.br\ Bilateral lower extremity edema\.br\ BPH with urinary obstruction\.br\ Conjunctivitis\.b r\ Depression\.br\ Elevated PSA\.br\ Facial laceration\.br\ Fall\.br\ Family history of cancer of colon\.br\ Family history of colon cancer\.br\ Family history of colonic polyps\.br\ Family history of polyp of colon\.br\ Gout\.br\ History of total knee arthroplasty.\.br \ Hypertension\.br\ Influenza A\.br\ Localized edema\.br\ Obstructive sleep apnea syndrome\.br\ Polyp of colon\.br\ Screen for colon cancer\.br\ Unspecified urethral stricture, male, unspecified site\.br\ Urinary tract obstruction\.br\ Patient Survey\.br\ You may receive a survey via text or e-mail asking about your office visit. Please share your experience with us by completing your survey. We appreciate your feedback and thank you for choosing us for your care.\.br\ Education Materials\.br\ Prostate Cancer Screening\.br\ \.br\ Prostate cancer screening is testing that is done to check for the presence of prostate cancer in men. The prostate gland is a walnut-sized gland that is located below the bladder and in front of the rectum in males. The function of the prostate is to add fluid to semen during ejaculation. Prostate cancer is one of the most common types of cancer in men.\.br\ Who should have prostate cancer screening?\.br\ Screening recommendations vary based on age and other risk factors, as well as between the professional organizations who make the recommendations.\ .br\ In general, screening is recommended if:\.br\ ? \.br\ You are age 50 to 70 and have an average risk for prostate cancer. You should talk with your health care provider about your need for screening and how often screening should be done. Because most prostate cancers are slow growing and will not cause , screening in this age group is generally reserved for men who have a 10- to 15-year life expectancy.\.br\ ? \.br\ You are younger than age 50, and you have these risk factors:\.br\ ? \.br\ Having a father, brother, or uncle who has been diagnosed with prostate cancer. The risk is higher if your family member's cancer occurred at an early age or if you have multiple family members with prostate cancer at an early age.\.br\ ? \.br\ Being a male who is Black or is of Alex or sub-Saharan descent.\.br\ In general, screening is not recommended if:\.br\ ? \.br\ You are younger than age 40.\.br\ ? \.br\ You are between the ages of 40 and 49 and you have no risk factors.\.br\ ? \.br\ You are 70 years of age or older. At this age, the risks that screening can cause are greater than the benefits that it may provide.\.br\ If you are at high risk for prostate cancer, your health care provider may recommend that you have screenings more often or that you start screening at a younger age.\.br\ How is screening for prostate cancer done?\.br\ The recommended prostate cancer screening test is a blood test called the prostate-specific antigen (PSA) test. PSA is a protein that is made in the prostate. As you age, your prostate naturally produces more PSA. Abnormally high PSA levels may be caused by:\.br\ ? \.br\ Prostate cancer.\.br\ ? \.br\ An enlarged prostate that is not caused by cancer (benign prostatic hyperplasia, or BPH). This condition is very common in older men.\.br\ ? \.br\ A prostate gland infection (prostatitis) or urinary tract infection.\.br\ ? \.br\ Certain medicines such as male hormones (like testosterone) or other medicines that raise testosterone levels.\.br\ A rectal exam may be done as part of prostate cancer screening to help provide information about the size of your prostate gland. When a rectal exam is performed, it should be done after the PSA level is drawn to avoid any effect on the results.\.br\ Depending on the PSA results, you may need more tests, such as:\.br\ ? \.br\ A physical exam to check the size of your prostate gland, if not done as part of screening.\.br\ ? \.br\ Blood and imaging tests.\.br\ ? \.br\ A procedure to remove tissue samples from your prostate gland for testing (biopsy). This is the only way to know for certain if you have prostate cancer.\.br\ What are the benefits of prostate cancer screening?\.br\ ? \.br\ Screening can help to identify cancer at an early stage, before symptoms start and when the cancer can be treated more easily.\.br\ ? \.br\ There is a small chance that screening may lower your risk of dying from prostate cancer. The chance is small because prostate cancer is a slow-growing cancer, and most men with prostate cancer from a different cause.\.br\ What are the risks of prostate cancer screening?\.br\ The main risk of prostate cancer screening is diagnosing and treating prostate cancer that would never have caused any symptoms or problems. This is called overdiagnosisand overtreatment. PSA screening cannot tell you if your PSA is high due to cancer or a different cause. A prostate biopsy is the only procedure to diagnose prostate cancer. Even the results of a biopsy may not tell you if your cancer needs to be treated. Slow-growing prostate cancer may not need any treatment other than monitoring, so diagnosing and treating it may cause unnecessary stress or other side effects.\.br\ Questions to ask your health care provider\.br\ ? \.br\ When should I start prostate cancer screening?\.br\ ? \.br\ What is my risk for prostate cancer?\.br\ ? \.br\ How often do I need screening?\.br\ ? \.br\ What type of screening tests do I need?\.br\ ? \.br\ How do I get my test results?\.br\ ? \.br\ What do my results mean?\.br\ [facility] Patient Educationon 03-06-20 24 Patient Education Oncology Prostate Cancer Screening Prostate cancer screening is testing that is done to check for the presence of prostate cancer in men. The prostate gland is a walnut-sized gland that is located below the bladder and in front of the rectum in males. The function of the prostate is to add fluid to semen during ejaculation. Prostate cancer is one of the most common types of cancer in men. Who should have prostate cancer screening? Screening recommendations vary based on age and other risk factors, as well as between the professional organizations who make the recommendations. In general, screening is recommended if: ? You are age 50 to 70 and have an average risk for prostate cancer. You should talk with your health care provider about your need for screening and how often screening should be done. Because most prostate cancers are slow growing and will not cause , screening in this age group is generally reserved for men who have a 10- to 15-year life expectancy. ? You are younger than age 50, and you have these risk factors: ? Having a father, brother, or uncle who has been diagnosed with prostate cancer. The risk is higher if your family member's cancer occurred at an early age or if you have multiple family members with prostate cancer at an early age. ? Being a male who is Black or is of Alex or sub-Saharan descent. In general, screening is not recommended if: ? You are younger than age 40. ? You are between the ages of 40 and 49 and you have no risk factors. ? You are 70 years of age or older. At this age, the risks that screening can cause are greater than the benefits that it may provide. If you are at high risk for prostate cancer, your health care provider may recommend that you have screenings more often or that you start screening at a younger age. How is screening for prostate cancer done? The recommended prostate cancer screening test is a blood test called the prostate-specific antigen (PSA) test. PSA is a protein that is made in the prostate. As you age, your prostate naturally produces more PSA. Abnormally high PSA levels may be caused by: ? Prostate cancer. ? An enlarged prostate that is not caused by cancer (benign prostatic hyperplasia, or BPH). This condition is very common in older men. ? A prostate gland infection (prostatitis) or urinary tract infection. ? Certain medicines such as male hormones (like testosterone) or other medicines that raise testosterone levels. A rectal exam may be done as part of prostate cancer screening to help provide information about the size of your prostate gland. When a rectal exam is performed, it should be done after the PSA level is drawn to avoid any effect on the results. Depending on the PSA results, you may need more tests, such as: ? A physical exam to check the size of your prostate gland, if not done as part of screening. ? Blood and imaging tests. ? A procedure to remove tissue samples from your prostate gland for testing (biopsy). This is the only way to know for certain if you have prostate cancer. What are the benefits of prostate cancer screening? ? Screening can help to identify cancer at an early stage, before symptoms start and when the cancer can be treated more easily. ? There is a small chance that screening may lower your risk of dying from prostate cancer. The chance is small because prostate cancer is a slow-growing cancer, and most men with prostate cancer from a different cause. What are the risks of prostate cancer screening? The main risk of prostate cancer screening is diagnosing and treating prostate cancer that would never have caused any symptoms or problems. This is called overdiagnosisand overtreatment. PSA screening cannot tell you if your PSA is high due to cancer or a different cause. A prostate biopsy is the only procedure to diagnose prostate cancer. Even the results of a biopsy may not tell you if your cancer needs to be treated. Slow-growing prostate cancer may not need any treatment other than monitoring, so diagnosing and treating it may cause unnecessary stress or other side effects. Questions to ask your health care provider ? When should I start prostate cancer screening? ? What is my risk for prostate cancer? ? How often do I need screening? ? What type of screening tests do I need? ? How do I get my test results? ? What do my results mean? ? Do I need treatment? Where to find more information ? The [place] [employer]: www.cancer.org ? [place] [employer]: www.auanet.org Contact a health care provider if: ? You have difficulty urinating. ? You have pain when you urinate or ejaculate. ? You have blood in your urine or semen. ? You have pain in your back or in the area of your prostate. Summary ? Prostate cancer is a common type of cancer in men. The prostate gland is located below the bladder and in front of the rectum. This gland adds flu (more content not included)... Normal [facility] Medication Consenton 024 Medication Consent [id number] F Normal [facility] Ambulatory Visit Summaryon 0 02-18-2024 Ambulatory Visit Summary PABLITO PRIETO NADINE Mack :1960 Visit Date:02/18/2024 Ambulatory Visit Instructions Your Diagnosis Depression Anxiety Non-smoker BMI 40.0-44.9, adult Your Care Team Attending Physician - SERA DEL VALLE Primary Care Physician - SERA DEL VALLE This Is Your Medications List allopurinol (allopurinol 300 mg Tab) amlodipine (amLODIPine 10 mg Tab) furosemide (furosemide 40 mg Tab) lorazepam (Ativan 0.5 mg Tab) losartan (losartan 100 mg Tab) metoprolol (metoprolol 100 mg ER Tab) multivitamin (Multi Vitamin+) potassium chloride (potassium chloride 10 mEq Cap-ER) sertraline (Zoloft 25 mg Tab) tamsulosin (tamsulosin 0.4 mg Cap) Procedures Performed Colonoscopy (12/25/2022), Optical urethrotomy (11/19/2019), Cystourethroscopy with dilation of urethral stricture (10/02/2019), Gastric sleeve, Knee replacement, Shoulder. Discharge Vitals Heart Rate (Peripheral) 84 Blood Pressure 128/76 Height 170 cm Height 67 in Weight 121 kg Weight 266.2 lb BMI 41.87 What to do next Scheduled Follow-Up Appointments 2023 2:30 PM EDT With: Blair ROGERS, Millie Acevedo Where: [facility] Normal [address] [place] [address]-\.br\ Medications\.br\ What How Much When Why Instructions\.br\ New lorazepam (Ativan 0.5 mg Tab) 0.5 Tablets By Mouth 2 times a day Depression Anxiety Non-smoker BMI 40.0-44.9,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 0245545, [id number], 5859716 ####[facility] [address] [place] [address] ALT No additional P-5'-P [Catalytic activity/Vol] 17 Int._Unit/L Normal 6-46 [facility] Comment on above: Performed By: #### 1 6065126, 1685478, [id number], 6407870 ####[facility] [address] [place] [address] Anion gap [Moles/Vol] 9 mmol/L Normal 6-16 [facility] Comment on above: Performed By: #### 1 [id number], 9523622, 43912632, 8680297 ####[facility] [address] [place] [address] AST [Catalytic activity/Vol] 15 Int._Unit/L Normal 5-43 [facility] Comment on above: Performed By: #### 1 7434172, 8581876, 83878409, 8718494 ####[facility] [address] [place] [address] Bilirubin [Mass/Vol] 0.6 mg/dL Normal 0.0-1.1 [facility] Comment on above: Performed By: #### 1 4291281, 2140483, 87393694, 6853692 ####[facility] [address] [place] [address] Calcium [Mass/Vol] 9.4 mg/dL Normal 8.9-11.1 [facility] Comment on above: Performed By: #### 1 5139903, 5820902, 41502916, 2836660 ####[facility] [address] [place] [address] Chloride [Moles/Vol] 107 mmol/L Normal 101-111 [facility] Comment on above: Performed By: #### 1 1105852, 1070419, 41244300, 7646693 ####[facility] [address] [place] [address] CO2 [Moles/Vol] 30 mmol/L Normal 21-31 [facility] Comment on above: Performed By: #### 1 [id number], 8931109, 94119095, 7597665 ####[facility] [address] [place] [address] Creatinine [Mass/Vol] 0.9 mg/dL Normal 0.5-1.3 [facility] Comment on above: Performed By: #### 1 6995073, 2978331, 96715148, 6969851 ####[facility] [address] [place] [address] Globulin (S) [Mass/Vol] 1.9 g/dL Normal 1.4-4.0 [facility] Comment on above: Performed By: #### 1 7019778, 9872066, 99503456, 9655322 ####[facility] [address] [place] [address] Glucose [Mass/Vol] 84 mg/dL Normal 55-199 [facility] Comment on above: Performed By: #### 1 7315963, 8272671, 73617840, 1330359 ####[facility] [address] [place] [address] Potassium [Moles/Vol] 4.0 mmol/L Normal 3.5-5.3 [facility] Comment on above: Performed By: #### 1 1628562, 3802619, 93662429, 8331200 ####[facility] [address] [place] [address] Protein [Mass/Vol] 6.3 g/dL Normal 6.0-7.8 [facility] Comment on above: Performed By: #### 1 1385802, 3534232, 82734153, 1765638 ####[facility] [address] [place] [address] Sodium [Moles/Vol] 142 mmol/L Normal 135-145 [facility] Comment on above: Performed By: #### 1 8987324, 3452554, 38367803, 2624322 ####[facility] [address] [place] [address] Urea nitrogen [Mass/Vol] 14 mg/dL Normal 5-21 [facility] Comment on above: Performed By: #### 1 0085103, 1830805, 01387115, 8341254 ####[facility] [address] [place] [address] Urea nitrogen/Creatinine [Mass ratio] 16 No Units Normal 10-20 [facility] Comment on above: Performed By: #### 1 4827485, 9973400, 85914613, 0622298 ####[facility] [address] [place] [address] Consent for Treatmenton 11-30 Consent for Treatment [id number] F Normal [facility] Consent for Treatment [id number] F Normal [facility] HEMATOLOGYOrdered By: SYSTEM SYSTEM on 12-26-2023 Basophils (Bld) [#/Vol] 0.0 E9/L Normal 0.0 - 0.2 E9/L Remisol Heme Basophils/100 WBC (Bld) 0.0 % Normal 0.0 - 2.0 % Remisol Heme Eosinophils (Bld) [#/Vol] 0.0 E9/L Normal 0.0 - 0.5 E9/L Remisol Heme Eosinophils/100 WBC (Bld) 0.0 % Normal 0.0 - 8.0 Remisol Heme Erythrocyte distribution width (RBC) [Ratio] 15.0 % High 10.9 - 14.2 % Remisol Heme Hematocrit (Bld) [Volume fraction] 41.2 % Normal 37.7 - 49.0 % Remisol Heme Hemoglobin (Bld) [Mass/Vol] 13.4 g/dL Low 13.5 - 17.5 gm/dL Remisol Heme Lymphocytes (Bld) [#/Vol] 16.4 E9/L High 1.0 - 4.0 E9/L Remisol Heme Lymphocytes/100 WBC (Bld) 73.0 % High 14.0 - 50.0 % Remisol Heme MCH (RBC) [Entitic mass] 30.5 pg Normal 27.0 - 34.0 pg Remisol Heme MCHC (RBC) [Mass/Vol] 32.5 g/dL Normal 31.4 - 36.0 gm/dL Remisol Heme MCV (RBC) [Entitic vol] 94.0 fL Normal 80.0 - 100.0 fL Remisol Heme Monocytes (Bld) [#/Vol] 0.4 E9/L Normal 0.2 - 1.0 E9/L Remisol Heme Monocytes/100 WBC (Bld) 2.0 % Low 4.0 - 14.0 % Remisol Heme Neutrophils (Bld) [#/Vol] 3.0 E9/L Invalid Interpretation Code Remisol Heme Platelet 256.0 E9/L Normal 150.0 - 500.0 E9/L Remisol Heme Platelet mean volume (Bld) [Entitic vol] 7.9 fL Normal 6.4 - 10.8 fL Remisol Heme RBC (Bld) [#/Vol] 4.4 E12/L Normal 4.3 - 5.9 E12/L Re misol Heme Segmented neutrophils/100 WBC (Bld) 15 % Low 50 - 70 % Remisol Heme Variant lymphocytes/100 WBC (Bld) 10 % High <=0% Remisol Heme WBC corrected for nucl RBC Auto (Bld) [#/Vol] 19.7 E9/L High 4.0 - 11.0 E9/L Remisol Heme Lipid Panelon 12-26-2023 Cholesterol [Mass/Vol] 196 mg/dL Normal 120-200 [facility] Comment on above: Performed By: #### 2 [id number] ####[facility] [address] [place] [address] Cholesterol in HDL [Mass/Vol] 46 mg/dL Invalid Interpretation Code [facility] Comment on above: Result Comment: '>= 60 LOW RISK' '<= 40 HIGH RISK' Performed By: #### 2 [id number] ####[facility] [address] [place] [address] Cholesterol in LDL [Mass/Vol] 132 mg/dL High <=129 [facility] Comment on above: Performed By: #### 2 482716 ####[facility] [address] [place] [address] Cholesterol in VLDL [Mass/Vol] 26 mg/dL Normal 7-40 [facility] Comment on above: Performed By: #### 2 566689 ####[facility] [address] [place] [address] Triglyceride [Mass/Vol] 131 mg/dL Normal <=149 [facility] Comment on above: Performed By: #### 2 067086 ####[facility] [address] [facility] [place] [address] PSA Screen, Totalon 12-26-19 Prostate specific Ag [Mass/Vol] 7.7 ng/mL High 0.1-3.5 [facility] Comment on above: Result Comment: The concentration of PSA determined by different manufacturers can vary due to differences in assay methods and reagent specificity. Values obtained from different assay methods cannot be used interchangeably. The methodology used for this result was chemiluminescence using [employer] PSA reagent. Performed By: #### 1 [id number], 7485596, [id number], [id number] ####[facility] [address] [place] [address] eGFRon 12-26-2023 eGFR 95 mL/min/1.73 m2 Normal >=59 [facility] Comment on above: Order Comment: Order added by Discern Expert. Performed By: #### 1 [id number], 7974766, [id number], 0108801 ####[facility] [address] [place] [address] Ambulatory Visit Summaryon 0 12-24-2023 Ambulatory Visit Summary PABLITO PRIETO NADINE Mack :1960 Visit Date:12/24/2023 Ambulatory Visit Instructions Your Diagnosis BPH with urinary obstruction Hypertension Other obstructive and reflux uropathy Your Care Team Attending Physician - SERA DEL VALLE Primary Care Physician - SERA DEL VALLE This Is Your Medications List allopurinol (allopurinol 300 mg Tab) amlodipine (amLODIPine 10 mg Tab) furosemide (furosemide 40 mg Tab) losartan (losartan 100 mg Tab) metoprolol (metoprolol 100 mg ER Tab) potassium chloride (potassium chloride 10 mEq Cap-ER) tamsulosin (tamsulosin 0.4 mg Cap) Contact prescribing physician if questions or concerns multivitamin (Multi Vitamin+) Procedures Performed Colonoscopy (12/25/2022), Optical urethrotomy (11/19/2019), Cystourethroscopy with dilation of urethral stricture (10/02/2019), Gastric sleeve, Knee replacement, Shoulder. Discharge Vitals Temperature (Temporal Artery) 36.7 ?C Heart Rate (Peripheral) 62 Respiratory Rate 15 Blood Pressure 132/74 Height 170 cm Height 67 in Weight 128.4 kg Weight 282.48 lb BMI 44.43 What to do next Scheduled Follow-Up Appointments Sunday 9:00 AM EDT With: SERA DEL VALLE Where: [facility] [place] Normal [facility] Family Medicine Office/Clini c Noteon 12-24-2023 Family Medicine Office/Clinic Note HPI Staff Pt here for chronic condition f/u - New to Me RICK 06/19/23 Giovanny PastorNicole Patient is here for follow up on hypertension. How often are you checking your blood pressure? couple time a month What are your average readings? _ 140/80 Do you have any of the following symptoms? Chest Pain? no Palpitations? no GUAMAN/SOB? no Headache? no Peripheral Edema? yes Light Headiness? no Last BMP: no record Refill needed?: _ refills on all meds [place]: 12/25/22, repeat in 5 years Flu: delcines History of Present Illness Nadine is a 63 year old male who presents to [facility]. He is doing well today, and has no needs. He did not get his lab work done in the past. He reports without flomax, he has difficulty initiating urination. I encouraged him to get some labs done, just to check a few values - he is in agreement. Staff HPI reviewed and is accurate. He does not check his BP at home, and he has been under significant stress due to the fact he and his have full custody of 4 of their grandchildren. He feels tired, but this could be attributed to him raising young children who all have various medical needs and issues. Review of Systems PHQ Score Initial Depression Screen Score: 0 SCORE Physical Exam Vitals & Measurements T: 36.7 ?C(Temporal Artery) HR: 62(Peripheral) RR: 15 BP: 132/74 SpO2: 95% HT: 67 in HT: 170 cm WT: 128.4 kg WT: 282.48 lb BMI: 44.43 General: alert, no acute distress ENMT: TM's clear, oral mucosa moist, no pharyngeal erythema or exudate Cardiovascular: regular rate and rhythm, normal peripheral perfusion Respiratory: Lungs CTA, respirations non labored Extremities: no deformity, no trauma Neurological: oriented x 4, LOC appropriate for age, CN II-XII intact, motor strength equal & normal bilaterally, sensation equal & normal bilaterally, speech normal Assessment/Plan 1. BPH with urinary obstruction (N40.1: Benign prostatic hyperplasia with lower urinary tract symptoms) PSA ordered Continue medication 2. Hypertension (I10: Essential (primary) hypertension) Continue to monitor Other obstructive and reflux uropathy (N13.8: Other obstructive and reflux uropathy) Continue to monitor Orders: allopurinol, 300 mg = 1 tab(s), Oral, Daily, # 90 tab(s), Refills(s) 3, Pharmacy: [facility], 170, cm, 12/24/23 11:32:00 EDT, Height/Length Dosing, 128.4, kg, 12/24/23 11:32:00 EDT, Weight Dosing amlodipine, 10 mg, Oral, Daily, X 90 day(s), # 90 tab(s), Refills(s) 3, Pharmacy: [facility], 170, cm, 12/24/23 11:32:00 EDT, Height/Length Dosing, 128.4, kg, 12/24/23 11:32:00 EDT, Weight Dosing furosemide, 40 mg = 1 tab(s), Oral, Daily, # 90 tab(s), Refills(s) 2, Pharmacy: [facility], 170, cm, 12/24/23 11:32:00 EDT, Height/Length Dosing, 128.4, kg, 12/24/23 11:32:00 EDT, Weight Dosing losartan, 100 mg, Oral, Daily, X 90 day(s), # 90 tab(s), Refills(s) 2, Pharmacy: [facility], 170, cm, 12/24/23 11:32:00 EDT, Height/Length Dosing, 128.4, kg, 12/24/23 11:32:00 EDT, Weight Dosing metoprolol, 100 mg = 1 tab(s), Oral, Daily, X 90 day(s), # 90 tab(s), Refills(s) 3, Pharmacy: [facility], 170, cm, 12/24/23 11:32:00 EDT, Height/Length Dosing, 128.4, kg, 12/24/23 11:32:00 EDT, Weight Dosing potassium chloride, 10 mEq = 1 cap(s), Oral, Daily, # 90 cap(s), Refills(s) 3, Pharmacy: [facility], 170, cm, 12/24/23 11:32:00 EDT, Height/Length Dosing, 128.4, kg, 12/24/23 11:32:00 EDT, Weight Dosing tamsulosin, 0.8 mg = 2 cap(s), Oral, Daily, # 180 cap(s), Refills(s) 3, Pharmacy: [facility], 170, cm, 12/24/23 11:32:00 EDT, Height/Length Dosing, 128.4, kg, 12/24/23 11:32:00 EDT, Weight Dosing CBC w/ Auto Diff Comprehensive Metabolic Panel PSA Screen, Total Follow-up No qualifying data available Patient Education Urinary Incontinence Problem List/Past Medical History Ongoing Anemia Benign prostatic hyperplasia with outflow obstruction Bilateral lower extremity edema BPH with urinary obstruction Conjunctivitis Facial laceration Fall Family history of cancer of colon Family history of colon cancer Family history of colonic polyps Family history of polyp of colon Gout History of total knee arthroplasty. Hypertension Influenza A Localized edema Obstructive sleep apnea syndrome Polyp of colon Screen for colon cancer Urinary tract obstruction Historical No qualifying data Procedure/Surgical History Colonoscopy (12/25/2022), Optical urethrotomy (11/19/2019), Cystourethroscopy with dilation of urethral stricture (10/02/2019), Gastric sleeve, Knee replacement, Shoulder. Medications allopurinol 300 mg Tab, 300 mg= 1 tab(s), Oral, Daily, 3 refills amLODIPine 10 mg Tab, 10 mg, Oral, Daily, 3 refills furosemide 40 mg Tab, 40 mg= 1 tab(s), Oral, Daily, 2 refills losartan 100 mg Tab, 100 mg, Oral, Daily, 2 refills metoprolol 100 mg ER Tab, 100 mg= 1 tab(s), Oral, Daily, 3 refill (more content not included)... Normal [facility] Comment on above: Result Comment: Elec tronically Signed By: SERA DEL VALLE\.br\Date and Time Signed: 12/24/23 12:13 EDT Patient Educationon 12-24-19 Patient Education Urology Urinary Incontinence Urinary incontinence refers to a condition in which a person is unable to control where and when to pass urine. A person with this condition will urinate involuntarily. This means that the person urinates when he or she does not mean to. What are the causes? This condition may be caused by: ? Medicines. ? Infections. ? Constipation. ? Overactive bladder muscles. ? Weak bladder muscles. ? Weak pelvic floor muscles. These muscles provide support for the bladder, intestine, and, in women, the uterus. ? Enlarged prostate in men. The prostate is a gland near the bladder. When it gets too big, it can pinch the urethra. With the urethra blocked, the bladder can weaken and lose the ability to empty properly. ? Surgery. ? Emotional factors, such as anxiety, stress, or post-traumatic stress disorder (PTSD). ? Spinal cord injury, nerve injury, or other neurological conditions. ? Pelvic organ prolapse. This happens in women when organs move out of place and into the vagina. This movement can prevent the bladder and urethra from working properly. What increases the risk? The following factors may make you more likely to develop this condition: ? Age. The older you are, the higher the risk. ? Obesity. ? Being physically inactive. ? and childbirth. ? Menopause. ? Diseases that affect the nerves or spinal cord. ? Long-term, or chronic, coughing. This can increase pressure on the bladder and pelvic floor muscles. What are the signs or symptoms? Symptoms may vary depending on the type of urinary incontinence you have. They include: ? A sudden urge to urinate, and passing urine involuntarily before you can get to a bathroom (urge incontinence). ? Suddenly passing urine when doing activities that force urine to pass, such as coughing, laughing, exercising, or sneezing (stress incontinence). ? Needing to urinate often but urinating only a small amount, or constantly dribbling urine (overflow incontinence). ? Urinating because you cannot get to the bathroom in time due to a physical disability, such as arthritis or injury, or due to a communication or thinking problem, such as Alzheimer's disease (functional incontinence). How is this diagnosed? This condition may be diagnosed based on: ? Your medical history. ? A physical exam. ? Tests, such as: ? Urine tests. ? X-rays of your kidney and bladder. ? Ultrasound. ? CT scan. ? Cystoscopy. In this procedure, a health care provider inserts a tube with a light and camera (cystoscope) through the urethra and into the bladder to check for problems. ? Urodynamic testing. These tests assess how well the bladder, urethra, and sphincter can store and release urine. There are different types of urodynamic tests, and they vary depending on what the test is measuring. To help diagnose your condition, your health care provider may recommend that you keep a log of when you urinate and how much you urinate. How is this treated? Treatment for this condition depends on the type of incontinence that you have and its cause. Treatment may include: ? Lifestyle changes, such as: ? Quitting smoking. ? Maintaining a healthy weight. ? Staying active. Try to get 150 minutes of moderate-intensity exercise every week. Ask your health care provider which activities are safe for you. ? Eating a healthy diet. ? Avoid high-fat foods, like fried foods. ? Avoid refined carbohydrates like white bread and white rice. ? Limit how much alcohol and caffeine you drink. ? Increase your fiber intake. Healthy sources of fiber include beans, whole grains, and fresh fruits and vegetables. ? Behavioral changes, such as: ? Pelvic floor muscle exercises. ? Bladder training, such as lengthening the amount of time between bathroom breaks, or using the bathroom at regular intervals. ? Using techniques to suppress bladder urges. This can include distraction techniques or controlled breathing exercises. ? Medicines, such as: ? Medicines to relax the bladder muscles and prevent bladder spasms. ? Medicines to help slow or prevent the growth of a man's prostate. ? Botox injections. These can help relax the bladder muscles. ? Treatments, such as: ? Using pulses of electricity to help change bladder reflexes (electrical nerve stimulation). ? For women, using a medical insurance verifier to prevent urine leaks. This is a small, tampon-like, disposable device that is inserted into the urethra. ? Injecting collagen or carbon beads (bulking agents) into the urinary sphincter. These can help thicken tissue and close the bladder opening. ? Surgery. Follow these instructions at home: Lifestyle ? Limit alcohol and caffeine. These can fill your bladder quickly and irritate it. ? Keep yourself clean to help prevent odors and skin damage. Ask your health care provider about special skin creams and cleansers that can protect the skin from urine. ? (more content not included)... Normal [facility] Provider Letteron 12-12-2023 Provider Letter (Inserted Image. Randi ble to display) December 12, 2023 NADINE MOBLEY [address] [place] [address] : 1960 Dear Nadine , We have been trying to reach you with no success. It is important that you return our call regarding your upcoming appointment upon receiving this letter. Also, at the time of your call, please provide us with your current information. Thank you for your prompt attention to this matter. Sincerely, [facility] [address] [place] [address] Normal [facility] Ambulatory Visit Summaryon 0 06-19-2023 Ambulatory Visit Summary PABLITO PRIETONADINE :1960 Visit Date:06/19/2023 Ambulatory Visit Instructions Your Diagnosis Hypertension Localized edema BMI 36.0-36.9,adult Benign prostatic hyperplasia with outflow obstruction Your Care Team Attending Physician - JOSÉ MIGUEL DIXON CNP Primary Care Physician - JOSÉ MIGUEL DIXON CNP This Is Your Medications List allopurinol (allopurinol 300 mg Tab) furosemide (furosemide 40 mg Tab) multivitamin (Multi Vitamin+) potassium chloride (potassium chloride 10 mEq Cap-ER) tamsulosin (tamsulosin 0.4 mg Cap) [Image Removed: STOP]Stop taking these medications polymyxin B-trimethoprim ophthalmic (polymyxin B-trimethoprim Opth Estrella) Procedures Performed Colonoscopy (12/25/2022), Optical urethrotomy (11/19/2019), Cystourethroscopy with dilation of urethral stricture (10/02/2019), Gastric sleeve, Knee replacement, Shoulder. Discharge Vitals Temperature (Oral) 36.9 ?C Heart Rate (Peripheral) 64 Respiratory Rate 21 Blood Pressure 137/70 Height 170 cm Height 67 in Weight 122.7 kg Weight 269.94 lb BMI 42.46 What to do next Scheduled Follow-Up Appointments Sunday. 2023 1:40 PM EDT With: JOSÉ MIGUEL DIXON CNP Where: [facility] Invalid Interpretation Code Localized edema, Print Label By Order Location\.br\ Lipid Panel, Blood, Routine collect, 06/19/23, Order for future visit, Lab Collect, Hypertension [facility] Office/Clini c Noteon 06-19-2023 Family Medicine Office/Clinic Note Chief Complaint Medication refills. HPI Staff Former Aric Juan NP patient. 6 month recheck. History of Present Illness 63 year old male presents today to f/u on known HTN and for medication refills. He states he is doing well on his current medications. He states he is not working any longer and believes this has helped his blood pressure. He denies headache, vision changes, chest pain, or palpitations. He does not monitor his blood pressure at home Review of Systems PHQ Score Initial Depression Screen Score: 0 Constitutional: no fever, no chills, no sweats, no weakness Skin: no Jaundice, no rash, no lesions, nopetechiae Respiratory: no shortness of breath, no cough, no orthopnea, no wheezing Cardiovascular: no chest pain, no palpitations, no edema Musculoskeletal: no back pain, no trauma Neurologic: no headache, no dizziness, no numbness, no weakness Psychiatric: no sleeping problems, no irritability, no mood swings/depression. Additional ROS info: Except as noted in the above Review of Systems and in the History of Present Illness all other systems have been reviewed and are negative or noncontributory. Physical Exam Vitals & Measurements T: 36.9 ?C(Oral) HR: 64(Peripheral) RR: 21 BP: 137/70 SpO2: 98% HT: 67 in HT: 170 cm WT: 122.7 kg WT: 269.94 lb BMI: 42.46 General: alert, no acute distress Skin: warm, dry Head: no trauma, normocephalic Neck: Trachea midline, no adenopathy, no tenderness Eye: normal conjunctiva, sclera clear Cardiovascular: regular rate and rhythm, normal peripheral perfusion Respiratory: Lungs CTA, respirations non labored Chest wall: no deformity. Assessment/Plan 1. Hypertension (I10: Essential (primary) hypertension) Controlled at 130/70 Encouraged low sodium diet & exercise f/u in 6 months Ordered: Comprehensive Metabolic Panel Lipid Panel PSA Screen, Total 2. Localized edema (R60.0: Localized edema) Ordered: Comprehensive Metabolic Panel Lipid Panel PSA Screen, Total 3. BMI 36.0-36.9,adult (Z68.36: Body mass index [BMI] 36.0-36.9, adult) Monitor weight at each visit Encouraged daily exercise & low sodium diet 4. Benign prostatic hyperplasia with outflow obstruction (N40.1: Benign prostatic hyperplasia with lower urinary tract symptoms) Ordered: PSA Screen, Total Follow-up With When Contact Information JOSÉ MIGUEL DIXON CNP, FAM Within 6 months [address] [phone] (1) Additional Instructions: HTN Patient Education DASH Eating Plan Problem List/Past Medical History Ongoing Benign prostatic hyperplasia with outflow obstruction Bilateral lower extremity edema BPH with urinary obstruction Family history of colon cancer Family history of colonic polyps Hypertension Influenza A Localized edema Polyp of colon Screen for colon cancer Urinary tract obstruction Historical No qualifying data Procedure/Surgical History Colonoscopy (12/25/2022), Optical urethrotomy (11/19/2019), Cystourethroscopy with dilation of urethral stricture (10/02/2019), Gastric sleeve, Knee replacement, Shoulder. Medications allopurinol 300 mg Tab, 300 mg= 1 tab(s), Oral, Daily, 1 refills furosemide 40 mg Tab, 40 mg= 1 tab(s), Oral, Daily, 1 refills Multi Vitamin+ potassium chloride 10 mEq Cap-ER, 10 mEq= 1 cap(s), Oral, Daily, 1 refills tamsulosin 0.4 mg Cap, 0.8 mg= 2 cap(s), Oral, Daily, 1 refills Allergies No Known Allergies Social History Alcohol - Medium Risk, 09/22/2019 Current, Beer, Liquor, 1-2 times per week, Household alcohol concerns: No., 11/15/2022 Substance Abuse - Denies Substance Abuse, 12/05/2021 Tobacco - No Risk, 12/07/2022 Never (less than 100 in lifetime) Tobacco Use:. Never Smokeless Tobacco Use:. Household tobacco concerns: No., 06/19/2023 Family History Alcoholism: Mother. Asthma: Mother. CA - Liver cancer: Sister. Cancer - unknown origin: Mother and Father. Diabetes mellitus type 1: Mother. Hypertension: Mother. Immunizations Vaccine Date Status Comments influenza virus vaccine, inactivated - Not Given Patient Refuses influenza virus vaccine, inactivated - Not Given Postpone due to refusal SARS-CoV-2 (COVID-19) Ad26 vaccine 02/26/2021 Recorded 2022-09-20: TPV60 influenza virus vaccine, inactivated - Not Given Patient Refuses influenza virus vaccine, live, trivalent - Not Given Patient Refuses Normal [facility] Comment on above: Result Comment: Elec tronically Signed By: JOSÉ MIGUEL DIXON CNP\.br\Date and Time Signed: 06/19/23 13:39 EDT Patient Educationon 06-19-20 23 Patient Education Nutrition DASH Eating Plan DASH stands for Dietary Approaches to Stop Hypertension. The DASH eating plan is a healthy eating plan that has been shown to: ? Reduce high blood pressure (hypertension). ? Reduce your risk for type 2 diabetes, heart disease, and stroke. ? Help with weight loss. What are tips for following this plan? Reading food labels ? Check food labels for the amount of salt (sodium) per serving. Choose foods with less than 5 percent of the Daily Value of sodium. Generally, foods with less than 300 milligrams (mg) of sodium per serving fit into this eating plan. ? To find whole grains, look for the word whole as the first word in the ingredient list. Shopping ? Buy products labeled as low-sodium or no salt added. ? Buy fresh foods. Avoid canned foods and pre-made or frozen meals. Cooking ? Avoid adding salt when cooking. Use salt-free seasonings or herbs instead of table salt or sea salt. Check with your health care provider or pharmacist before using salt substitutes. ? Do not tobar foods. Cook foods using healthy methods such as baking, boiling, grilling, roasting, and broiling instead. ? Cook with heart-healthy oils, such as olive, canola, avocado, soybean, or sunflower oil. Meal planning ? Eat a balanced diet that includes: ? 4 or more servings of fruits and 4 or more servings of vegetables each day. Try to fill one-half of your plate with fruits and vegetables. ? 6?8 servings of whole grains each day. ? Less than 6 oz (170 g) of lean meat, poultry, or fish each day. A 3-oz (85-g) serving of meat is about the same size as a deck of cards. One egg equals 1 oz (28 g). ? 2?3 servings of low-fat dairy each day. One serving is 1 cup (237 mL). ? 1 serving of nuts, seeds, or beans 5 times each week. ? 2?3 servings of heart-healthy fats. Healthy fats called omega-3 fatty acids are found in foods such as walnuts, flaxseeds, fortified milks, and eggs. These fats are also found in cold-water fish, such as sardines, salmon, and mackerel. ? Limit how much you eat of: ? Canned or prepackaged foods. ? Food that is high in trans fat, such as some fried foods. ? Food that is high in saturated fat, such as fatty meat. ? Desserts and other sweets, sugary drinks, and other foods with added sugar. ? Full-fat dairy products. ? Do not salt foods before eating. ? Do not eat more than 4 egg yolks a week. ? Try to eat at least 2 vegetarian meals a week. ? Eat more home-cooked food and less restaurant, buffet, and fast food. Lifestyle ? When eating at a restaurant, ask that your food be prepared with less salt or no salt, if possible. ? If you drink alcohol: ? Limit how much you use to: ? 0?1 drink a day for women who are not . ? 0?2 drinks a day for men. ? Be aware of how much alcohol is in your drink. In the [place] one drink equals one 12 oz bottle of beer (355 mL), one 5 oz glass of wine (148 mL), or one 1? oz glass of hard liquor (44 mL). General information ? Avoid eating more than 2,300 mg of salt a day. If you have hypertension, you may need to reduce your sodium intake to 1,500 mg a day. ? Work with your health care provider to maintain a healthy body weight or to lose weight. Ask what an ideal weight is for you. ? Get at least 30 minutes of exercise that causes your heart to beat faster (aerobic exercise) most days of the week. Activities may include walking, swimming, or biking. ? Work with your health care provider or dietitian to adjust your eating plan to your individual calorie needs. What foods should I eat? Fruits All fresh, dried, or frozen fruit. Canned fruit in natural juice (without added sugar). Vegetables Fresh or frozen vegetables (raw, steamed, roasted, or grilled). Low-sodium or reduced-sodium tomato and vegetable juice. Low-sodium or reduced-sodium tomato sauce and tomato paste. Low-sodium or reduced-sodium canned vegetables. Grains Whole-grain or whole-wheat bread. Whole-grain or whole-wheat pasta. Brown rice. Oatmeal. Quinoa. Bulgur. Whole-grain and low-sodium cereals. Leigh bread. Low-fat, low-sodium crackers. Whole-wheat flour tortillas. Meats and other proteins Skinless chicken or turkey. Ground chicken or turkey. Pork with fat trimmed off. Fish and seafood. Egg whites. Dried beans, peas, or lentils. Unsalted nuts, nut butters, and seeds. Unsalted canned beans. Lean cuts of beef with fat trimmed off. Low-sodium, lean precooked or cured meat, such as sausages or meat loaves. Dairy Low-fat (1%) or fat-free (skim) milk. Reduced-fat, low-fat, or fat-free cheeses. Nonfat, low-sodium ricotta or cottage cheese. Low-fat or nonfat yogurt. Low-fat, low-sodium cheese. Fats and oils Soft margarine without trans fats. Vegetable oil. Reduced-fat, low-fat, or light mayonnaise and salad dressings (reduced-sodium). Canola, safflower, olive, avocado, soybean, and sunflower oils. Avocado. Seasonings and condiments Herbs. Spices. Seasoni (more content not included)... Normal [facility] Activated partial thrombopla stin time (aPTT) in platelet poor plasma by coagulation aon 11-19-2019 aPTT Coag (PPP) [Time] 30.8 s 23.0-35.0 [facility] Automated basophil %on 11-19 Basophils/100 WBC (Bld) 1.0 % [facility] Automated basophil counton 0 11-19-2019 Basophils (Bld) [#/Vol] 0.1 10*3/uL 0.0-0.2 [facility] Automated blood lymphocyte c ount (number/volume)on 11-19-2019 Lymphocytes (Bld) [#/Vol] 2.7 10*3/uL 1.00-4.8 [facility] Automated blood lymphocyte c ount as percentage of total leukocyteson 11-19-2019 Lymphocytes/100 WBC (Bld) 43.4 % [facility] Automated blood monocyte cou nton 11-19-2019 Monocytes (Bld) [#/Vol] 0.5 10*3/uL 0.0-0.8 [facility] Automated blood platelet cou nt (count/volume)on 11-19-2019 Platelets (Bld) [#/Vol] 235 10*3/uL 150-450 [facility] Automated blood platelet jason n volume measurementon 11-19-2019 Platelet mean volume (Bld) [Entitic vol] 8.3 fL 6.6-10.1 [facility] Automated eosinophil %on Eosinophils/100 WBC (Bld) 3.1 % [facility] Automated eosinophil counton 11-19-2019 Eosinophils (Bld) [#/Vol] 0.2 10*3/uL 0.0-0.45 [facility] Automated erythrocyte distri bution width ratioon 11-19-2019 Erythrocyte distribution width (RBC) [Ratio] 14.1 % 12.0-14.8 [facility] Automated erythrocyte mean c orpuscular hemoglobin (mass per erythrocyte)on 11-19-2019 MCH (RBC) [Entitic mass] 30.8 pg 27.5-35.2 [facility] Automated erythrocyte mean c orpuscular hemoglobin concentration measurement (mass/volon 11-19-2019 MCHC (RBC) [Mass/Vol] 33.7 g/dL 32.5-35.6 [facility] Automated erythrocyte mean c orpuscular volumeon 11-19-2019 MCV (RBC) [Entitic vol] 91.3 fL 83.5-101 [facility] Automated monocyte %on 11-19 Monocytes/100 WBC (Bld) 7.8 % [facility] Automated neutrophil %on Neutrophils/100 WBC (Bld) 44.7 % [facility] Blood erythrocytes automated count (number/volume)on 11-19-2019 RBC (Bld) [#/Vol] 4.16 10*6/uL 3.90-5.60 [facility] Blood hemoglobin measurement (mass/volume)on 11-19-2019 Hemoglobin (Bld) [Mass/Vol] 12.8 g/dL 13.0-17.0 [facility] Blood leukocytes automated c ount (number/volume)on 11-19-2019 WBC (Bld) [#/Vol] 6.3 10*3/uL 4.5-11.0 [facility] Blood neutrophil count by au tomated method (number/volume)on 11-19-2019 Neutrophils (Bld) [#/Vol] 2.8 10*3/uL 1.8-7.7 [facility] Estimated glomerular filtrat ion rate (GFR) non- Americanon 11-19-2019 GFR/1.73 sq M predicted among non-blacks MDRD (S/P/Bld) [Vol rate/Area] mL/min/{1.73_m2} [facility] Hematocrit [Volume Fraction] of Blood by Automated counton 11-19-2019 Hematocrit (Bld) [Volume fraction] 38.0 % 38.8-50.0 [facility] Hematologyon 11-19-2019 PT Coag (PPP) [Time] 12.4 s 9.0-12.9 [facility] Otheron 11-19-2019 GFR/1.73 sq M.predicted MDRD (S/P/Bld) [Vol rate/Area] mL/min/{1.73_m2} [facility] Comment on above: GFR estimated refere nce range: According to KDOQI guidelines, <60 ml/min/1.73m2 is sufficient to diagnose a patient with chronic kidney disease. Nucleated RBC/100 WBC (Bld) [Ratio] 0.3 % 0-0.5 [facility] Creatinine Clearance (Chem [id number] [facility] Platelet poor plasma interna tional normalized ratio (INR) by coagulation assay (relaton 11-19-2019 INR Coag (PPP) [Relative time] 1.1 {INR} [facility] Comment on above: INR Therapeutic Rang e A) Pre- and Peroperative OAT started two weeks before surgery. NOT HIP SURGERY: 1.5 - 2.5 HIP SURGERY: 2 - 3B) Primary and secondary prevention of venous THROMBOSIS: 2 - 3C) Active venous thrombosis, pulmonary embolismand prevention of recurrent venous thrombosis: 2 - 3D) Prevention of arterial thromboembolismincluding patients with mechanical heart valves: 3 - 4.5 Serum or plasma calcium meena urement (mass/volume)on 11-19-2019 Calcium [Mass/Vol] 9.0 mg/dL 8.2-10.2 [facility] Serum or plasma chloride jason surement (moles/volume)on 11-19-2019 Chloride [Moles/Vol] 104 mmol/L 95-114 [facility] Serum or plasma creatinine m easurement with calculation of estimated glomerular filtron 11-19-2019 Creatinine [Mass/Vol] 0.78 mg/dL 0.64-1.27 [facility] Serum or plasma glucose meena urement (mass/volume)on 11-19-2019 Glucose [Mass/Vol] 97 mg/dL 70-100 [facility] Comment on above: ADA recommended refe rence rangeRandom Glucose Reference Range is dependent on time and content of last meal. Glucose of more than 200 mg/dL in a nonstressed, ambulatory subject supports the diagnosis of Diabetes Mellitus. Serum or plasma potassium me asurement (moles/volume)on 11-19-2019 Potassium [Moles/Vol] 3.5 mmol/L 3.5-5.1 [facility] Serum or plasma sodium measu rement (moles/volume)on 11-19-2019 Sodium [Moles/Vol] 140 mmol/L 136-146 [facility] Serum or plasma total carbon dioxide measurement (moles/volume)on 11-19-2019 CO2 [Moles/Vol] 28.8 mmol/L 22.0-30.0 [facility] Serum or plasma urea nitroge n measurement (mass/volume)on 11-19-2019 Urea nitrogen [Mass/Vol] 12 mg/dL 9- [facility] VITAMIN A (RETINOL)on 2018 VITAMIN A (RETINOL) SEE BELOW Normal [facility] Comment on above: Result Comment: Edna min A (Retinol) 0.66 0.30-1.20 mg/L Vitamin A (Retinyl Palmitate) 0.07 0.00-0.10 mg/L Vitamin A, Ser/Nidhi - Interpretation Normal Test developed and characteristics determined by [facility]. See Compliance Statement B: [employer]/CS Performed by [facility], [address] [place] [address] [email or web address], Harshil Guerrero MD, Lab. Director Performed By: #### B MP, ANION, EGFR1 #### [facility] [address] [place] [address] VITAMIN B1on 09-23-2019 VITAMIN B1 144 nmol/L Normal 70-180 [facility] Comment on above: Result Comment: INTE RPRETIVE INFORMATION: Vitamin B1, Whole Blood This assay measures the concentration of thiamine diphosphate (TDP), the primary active form of vitamin B1. Approximately 90 percent of vitamin B1 present in whole blood is TDP. Thiamine and thiamine monophosphate, which comprise the remaining 10 percent, are not measured. Test developed and characteristics determined by [facility]. See Compliance Statement B: [employer]/CS Performed by [facility], [address] [facility] [place] [address] [email or web address], Harshil Guerrero MD, Lab. Director Performed By: #### B MP, ANION, EGFR1 #### [employer] [address] [place] [address] ZINCon 09-21-2019 ZINC 83.6 ug/dL Normal 60.0-120.0 [facility] Comment on above: Result Comment: INTE RPRETIVE INFORMATION: Zinc, Serum or Plasma Elevated results may be due to skin or collection-related contamination, including the use of a noncertified metal-free collection/transport tube. If contamination concerns exist due to elevated levels of serum/plasma zinc, confirmation with a second specimen collected in a certified metal-free tube is recommended. Circulating zinc concentrations are dependent on albumin status and are depressed with malnutrition. Zinc may also be lowered with infection, inflammation, stress, oral contraceptives, and . Zinc may be elevated with zinc supplementation or fasting. Elevated zinc concentrations may interfere with copper absorption. Test developed and characteristics determined by [facility]. See Compliance Statement B: [employer]/CS Performed by [facility], [address] [facility] [place] [address] [email or web address], Harshil Guerrero MD, Lab. Director Performed By: #### B MP, ANION, EGFR1 #### [employer] [address] [place] [address] ANION GAPon 09-19-2019 Anion gap [Moles/Vol] 14.0 mmol/L Normal 8.0-16.0 [facility] Comment on above: Result Comment: ANIO N GAP = Sodium -(Chloride + CO2) Performed By: #### M G, LIPD2, FEIBC, CMP, ANION, EGFR1, TSHRF, FERR, VB12F, PTH-S, VD25 #### [facility] [address] [place] [address] Anion GapOrdered By: Leann fung on 09-19-2019 Anion gap [Moles/Vol] 14.0 mmol/L 8 - 16 meq/L [employer] Phone: Comment on above: ANION GAP = Sodium - (Chloride + CO2) Performed at [facility] [address] [place] [id number] CBCOrdered By: Leann Pena on 09-19-2019 Erythrocyte distribution width (RBC) [Ratio] 13.3 % 11.5 - 14.5 % [employer] Phone: Hematocrit (Bld) [Volume fraction] 42.7 % 42 - 52 % [employer] Phone: Hemoglobin (Bld) [Mass/Vol] 13.9 g/dL Low [employer] Phone: Interpretation and review of laboratory results Abnormal [employer] Phone: MCH (RBC) [Entitic mass] 30.5 pg 26 - 33 pg [employer] Phone: MCHC (RBC) [Mass/Vol] 32.6 g/dL [employer] Phone: MCV (RBC) [Entitic vol] 93.8 fL 80 - 94 fL [employer] Phone: Platelet mean volume (Bld) [Entitic vol] 10.4 fL 9.4 - 12.4 fL [employer] Phone: Comment on above: Performed at [facility] [address] [place] [id number] Platelets (Bld) [#/Vol] 231 10*3/uL [employer] Phone: RBC (Bld) [#/Vol] 4.55 10*6/uL Low [employer] Phone: RDW-SD 45.9 fL High 35 - 45 fL [employer] Phone: WBC (Bld) [#/Vol] 7.2 10*3/uL [facility] Work Phone: CBC NO DIFFERENTIALon 2018 Erythrocyte distribution width (RBC) [Ratio] 13.3 % Normal 11.5-14.5 [facility] Comment on above: Performed By: #### C BCND #### [facility] [employer] [address] [address] Hematocrit (Bld) [Volume fraction] 42.7 % Normal 42.0-52.0 [facility] Comment on above: Performed By: #### C BCND #### [address] [address] Hemoglobin (Bld) [Mass/Vol] 13.9 gm/dl Low 14.0-18.0 [facility] Comment on above: Performed By: #### C BCND #### [address] [address] MCH (RBC) [Entitic mass] 30.5 pg Normal 26.0-33.0 [facility] Comment on above: Performed By: #### C BCND #### [address] [address] MCHC (RBC) [Mass/Vol] 32.6 gm/dl Normal 32.2-35.5 [facility] Comment on above: Performed By: #### C BCND #### [address] [address] MCV (RBC) [Entitic vol] 93.8 fL Normal 80.0-94.0 [facility] Comment on above: Performed By: #### C BCND #### [address] [address] Platelet mean volume (Bld) [Entitic vol] 10.4 fL Normal 9.4-12.4 [facility] Comment on above: Performed By: #### C BCND #### [address] [address] Platelets (Bld) [#/Vol] 231 thou/mm3 Normal 130-400 [facility] Comment on above: Performed By: #### C BCND #### [address] [address] RBC (Bld) [#/Vol] 4.55 mill/mm3 Low 4.70-6.10 [facility] Comment on above: Performed By: #### C BCND #### [address] [address] RDW-SD 45.9 fL High 35.0-45.0 [facility] Comment on above: Performed By: #### C BCND #### [address] [address] WBC (Bld) [#/Vol] 7.2 thou/mm3 Normal 4.8-10.8 [facility] Comment on above: Performed By: #### C BCND #### [address] [address] COMP. METABOLIC PANELon 12 Albumin [Mass/Vol] 4.3 g/dL Normal 3.5-5.1 [facility] Comment on above: Performed By: #### M G, LIPD2, FEIBC, CMP, ANION, EGFR1, TSHRF, FERR, VB12F, PTH-S, VD25 #### [address] [address] ALP [Catalytic activity/Vol] 79 U/L Normal 38-126 [facility] Comment on above: Performed By: #### M G, LIPD2, FEIBC, CMP, ANION, EGFR1, TSHRF, FERR, VB12F, PTH-S, VD25 #### [facility] [address] [place] [address] ALT [Catalytic activity/Vol] 28 U/L Normal 11-66 [facility] Comment on above: Performed By: #### M G, LIPD2, FEIBC, CMP, ANION, EGFR1, TSHRF, FERR, VB12F, PTH-S, VD25 #### [address] [address] AST [Catalytic activity/Vol] 23 U/L Normal 5-40 [facility] Comment on above: Performed By: #### M G, LIPD2, FEIBC, CMP, ANION, EGFR1, TSHRF, FERR, VB12F, PTH-S, VD25 #### [address] [address] Bilirubin Ql (U) 0.6 mg/dL Normal 0.3-1.2 [facility] Comment on above: Performed By: #### M G, LIPD2, FEIBC, CMP, ANION, EGFR1, TSHRF, FERR, VB12F, PTH-S, VD25 #### [address] [address] Calcium [Mass/Vol] 9.8 mg/dL Normal 8.5-10.5 [facility] Comment on above: Performed By: #### M G, LIPD2, FEIBC, CMP, ANION, EGFR1, TSHRF, FERR, VB12F, PTH-S, VD25 #### [address] [address] Chloride [Moles/Vol] 102 mmol/L Normal 98-111 [facility] Comment on above: Performed By: #### M G, LIPD2, FEIBC, CMP, ANION, EGFR1, TSHRF, FERR, VB12F, PTH-S, VD25 #### [address] [address] CO2 [Moles/Vol] 29 mmol/L Normal 23-33 [facility] Comment on above: Performed By: #### M G, LIPD2, FEIBC, CMP, ANION, EGFR1, TSHRF, FERR, VB12F, PTH-S, VD25 #### [facility] [address] [place] [address] Creatinine [Mass/Vol] 0.7 mg/dL Normal 0.4-1.2 [facility] Comment on above: Performed By: #### M G, LIPD2, FEIBC, CMP, ANION, EGFR1, TSHRF, FERR, VB12F, PTH-S, VD25 #### [address] [address] Glucose [Mass/Vol] 100 mg/dL Normal 70-108 [facility] Comment on above: Performed By: #### M G, LIPD2, FEIBC, CMP, ANION, EGFR1, TSHRF, FERR, VB12F, PTH-S, VD25 #### [address] [address] Potassium [Moles/Vol] 3.8 mmol/L Normal 3.5-5.2 [facility] Comment on above: Performed By: #### M G, LIPD2, FEIBC, CMP, ANION, EGFR1, TSHRF, FERR, VB12F, PTH-S, VD25 #### [address] [address] Protein [Mass/Vol] 6.6 g/dL Normal 6.1-8.0 [facility] Comment on above: Performed By: #### M G, LIPD2, FEIBC, CMP, ANION, EGFR1, TSHRF, FERR, VB12F, PTH-S, VD25 #### [address] [address] Sodium [Moles/Vol] 145 mmol/L Normal 135-145 [facility] Comment on above: Performed By: #### M G, LIPD2, FEIBC, CMP, ANION, EGFR1, TSHRF, FERR, VB12F, PTH-S, VD25 #### [address] [address] Urea nitrogen [Mass/Vol] 18 mg/dL Normal 7-22 [facility] Comment on above: Performed By: #### M G, LIPD2, FEIBC, CMP, ANION, EGFR1, TSHRF, FERR, VB12F, PTH-S, VD25 #### [facility] [address] [place] [address] Comprehensive Metabolic Pane lOrdered By: Leann Pena on 09-19-2019 Albumin [Mass/Vol] 4.3 g/dL 3.5 - 5.1 g/dL [facility] [employer] Work Phone: ALP [Catalytic activity/Vol] 79 U/L 38 - 126 U/L [facility] [employer] Work Phone: ALT [Catalytic activity/Vol] 28 U/L 11 - 66 U/L [facility] [employer] Phone: Comment on above: Performed at [facility] [address] [place] [address] AST [Catalytic activity/Vol] 23 U/L 5 - 40 U/L [facility] Phone: Bilirubin [Mass/Vol] 0.6 mg/dL 0.3 - 1.2 mg/dL [facility] Work Phone: Calcium [Mass/Vol] 9.8 mg/dL 8.5 - 10.5 mg/dL [facility] Phone: Chloride [Moles/Vol] 102 mmol/L 98 - 111 meq/L [facility] Phone: CO2 [Moles/Vol] 29 mmol/L 23 - 33 meq/L [facility] [employer] Phone: Creatinine [Mass/Vol] 0.7 mg/dL 0.4 - 1.2 mg/dL [facility] [employer] Phone: Glucose [Mass/Vol] 100 mg/dL 70 - 108 mg/dL [facility] [employer] Work Phone: Potassium [Moles/Vol] 3.8 mmol/L 3.5 - 5.2 meq/L [facility] [employer] Phone: Protein [Mass/Vol] 6.6 g/dL 6.1 - 8 g/dL [facility] [employer] Work Phone: Sodium [Moles/Vol] 145 mmol/L 135 - 145 meq/L [facility] [employer] Work Phone: Urea nitrogen [Mass/Vol] 18 mg/dL 7 - 22 mg/dL [facility] [employer] Phone: FERRITINon 09-19-2019 Ferritin [Mass/Vol] 553 ng/mL High 22-322 [facility] Comment on above: Performed By: #### B MP, ANION, EGFR1 #### [facility] [address] [place] [address] FerritinOrdered By: Leann Stinson on 09-19-2019 Ferritin [Mass/Vol] 553 ng/mL High 22 - 322 ng/mL [facility] [employer] Work Phone: Comment on above: Performed at [facility] [address] [place] [address] Interpretation and review of laboratory results Abnormal [facility] [employer] Work Phone: GFR, ESTIMATEDon 09-19-2019 GFR/1.73 sq M.predicted MDRD (S/P/Bld) [Vol rate/Area] mL/min/{1.73_m2} Normal [facility] Comment on above: Result Comment: Stag e Description GFR, ml/min/1.73 m2 - At increased risk > or = 60 (with chronic kidney disease risk factors) 1 Normal or increased GFR > or = 90 2 Mildly or decreased GFR 60 - 89 3 Moderately decreased GFR 30 - 59 4 Severely decreased GFR 15 - 29 5 Kidney failure <15 (or dialysis) Estimated GFR calculated using abbreviated MDRD formula as recommended by National Kidney Foundation. Calculation based upon serum creatinine and adjusted for age, gender & race. Stacia. Internal Med., Vol. 139 (2) pg 137-147. Performed By: #### M G, LIPD2, FEIBC, CMP, ANION, EGFR1, TSHRF, FERR, VB12F, PTH-S, VD25 #### [employer] [address] [place] [address] Glomerular Filtration Rate, EstimatedOrdered By: Leann Pena on 09-19-2019 Est, Glom Filt Rate >90 ml/min/1.73m2 [facility] [employer] Work Phone: Comment on above: Stage Description GF R, ml/min/1.73 m2 - At increased risk > or = 60 (with chronic kidney disease risk factors) 1 Normal or increased GFR > or = 90 2 Mildly or decreased GFR 60 - 89 3 Moderately decreased GFR 30 - 59 4 Severely decreased GFR 15 - 29 5 Kidney failure <15 (or dialysis) Estimated GFR calculated using abbreviated MDRD formula as recommended by National Kidney Foundation. Calculation based upon serum creatinine and adjusted for age, gender & race. Stacia. Internal Med., Vol. 139 (2) pg 137-147. Performed at [facility] [address] [place] [address] IRON AND TIBCon 09-19-2019 Iron [Mass/Vol] 95 ug/dL Normal 65-195 [facility] Comment on above: Performed By: #### M G, LIPD2, FEIBC, CMP, ANION, EGFR1, TSHRF, FERR, VB12F, PTH-S, VD25 #### [facility] [address] [place] [address] IRON BINDING CAPACITY 295 ug/dL Normal 171-450 [facility] Comment on above: Performed By: #### M G, LIPD2, FEIBC, CMP, ANION, EGFR1, TSHRF, FERR, VB12F, PTH-S, VD25 #### [employer] [address] [place] [address] Iron and TIBCOrdered By: Milvia Pena on 09-19-2019 Iron [Mass/Vol] 95 ug/dL 65 - 195 ug/dL [employer] Phone: TIBC 295 ug/dL 171 - 450 ug/dL [employer] Phone: Comment on above: Performed at [facility] [facility] [address] [place] [address] LIPID PANELon 09-19-2019 Cholesterol [Mass/Vol] 169 mg/dL Normal 100-199 [facility] Comment on above: Result Comment: <200 Desirable 200 - 239 Borderline High >239 High Performed By: #### M G, LIPD2, FEIBC, CMP, ANION, EGFR1, TSHRF, FERR, VB12F, PTH-S, VD25 #### [employer] [address] [place] [address] Cholesterol in HDL [Mass/Vol] 42 mg/dL Normal [facility] Comment on above: Result Comment: Refe r to General Chemistry for CHOL and TRIG results. HDL CLASSIFICATIONS FOR PATIENTS > 20 YEARS OLD. <40 Undesirable (Major Risk Factor) >60 Protective (Negative Risk Factor) Performed By: #### M G, LIPD2, FEIBC, CMP, ANION, EGFR1, TSHRF, FERR, VB12F, PTH-S, VD25 #### [employer] [address] [place] [address] Cholesterol in LDL [Mass/Vol] 110 mg/dL Normal [facility] Comment on above: Result Comment: Refe r to General Chemistry for CHOL and TRIG results. LDL CLASSIFICATIONS FOR PATIENTS >20 YEARS OLD: Determination Invalid if TRIG >400 <100 Optimal 100 - 129 Near or Above Optimal 130 - 159 Borderline High 160 - 189 High Risk >189 Very High Risk Performed By: #### M G, LIPD2, FEIBC, CMP, ANION, EGFR1, TSHRF, FERR, VB12F, PTH-S, VD25 #### [facility] [address] [place] [address] Triglyceride [Mass/Vol] 84 mg/dL Normal 0-199 [facility] Comment on above: Result Comment: <150 Desirable 150 - 199 Borderline High 200 - 499 High >449 Very High Ranges are based upon NCEP/ATP III guidelines. Performed By: #### M G, LIPD2, FEIBC, CMP, ANION, EGFR1, TSHRF, FERR, VB12F, PTH-S, VD25 #### [facility] [address] [place] [address] Lipid PanelOrdered By: Leann Pena on 09-19-2019 Cholesterol [Mass/Vol] 169 mg/dL 100 - 199 mg/dL [employer] Phone: Comment on above: <200 Desirable 200 - 239 Borderline High >239 High Cholesterol in HDL [Mass/Vol] 42 mg/dL [employer] Phone: Comment on above: Refer to General Laura elizabeth for CHOL and TRIG results. HDL CLASSIFICATIONS FOR PATIENTS > 20 YEARS OLD. <40 Undesirable (Major Risk Factor) >60 Protective (Negative Risk Factor) Cholesterol in LDL [Mass/Vol] 110 mg/dL [employer] Phone: Comment on above: Refer to General Laura elizabeth for CHOL and TRIG results. LDL CLASSIFICATIONS FOR PATIENTS >20 YEARS OLD: Determination Invalid if TRIG >400 <100 Optimal 100 - 129 Near or Above Optimal 130 - 159 Borderline High 160 - 189 High Risk >189 Very High Risk Performed at [facility] [address] [place] [address] Triglyceride [Mass/Vol] 84 mg/dL 0 - 199 mg/dL [employer] Phone: Comment on above: <150 Desirable 150 - 199 Borderline High 200 - 499 High >449 Very High Ranges are based upon NCEP/ATP III guidelines. MAGNESIUMon 09-19-2019 Magnesium [Mass/Vol] 2.0 mg/dL Normal 1.6-2.4 [facility] Comment on above: Performed By: #### M G, LIPD2, FEIBC, CMP, ANION, EGFR1, TSHRF, FERR, VB12F, PTH-S, VD25 #### [employer] [address] [place] [address] MagnesiumOrdered By: Leann fung on 09-19-2019 Magnesium [Mass/Vol] 2.0 mg/dL 1.6 - 2.4 mg/dL [employer] Phone: Comment on above: Performed at [facility] [address] [place] [address] PARATHYROID HORMONE (PTH)on 09-19-2019 PARATHYROID HORMONE (PTH) 29.0 pg/mL Normal 15.0-65.0 [facility] Comment on above: Performed By: #### B MP, ANION, EGFR1 #### [employer] [address] [place] [address] PTH, IntactOrdered By: Leann Pena on 09-19-2019 Pth Intact 29 pg/mL 15 - 65 pg/mL [employer] Phone: Comment on above: Performed at [facility] [address] [place] [address] TSH W/ REFLEX FT4on 09-19-20 19 TSH THIRD GENERATION 1.960 uIU/mL Normal 0.400-4.20 [facility] Comment on above: Performed By: #### B MP, ANION, EGFR1 #### [employer] [address] [place] [address] TSH with ReflexOrdered By: Dee Pena on 09-19-2019 TSH Qn 1.960 m[IU]/L [employer] Phone: Comment on above: Performed at [facility] [address] [place] [address] VITAMIN B12 FOLATEon 019 Cobalamin (Vitamin B12) [Mass/Vol] 1000 pg/mL High 211-911 [facility] Comment on above: Performed By: #### B MP, ANION, EGFR1 #### [facility] [address] [place] [address] FOLATE 18.1 ng/mL Normal 4.8-24.2 [facility] Comment on above: Performed By: #### B MP, ANION, EGFR1 #### [facility] [address] [place] [address] VITAMIN D TOTAL 25 (OH)on VITAMIN D TOTAL 25 (OH) 31 ng/ml Normal 30-100 [facility] Comment on above: Result Comment: Edna min D Status Range Deficiency <20 ng/ml Insuffiency 20-30 ng/ml Sufficiency 30-100 ng/ml Toxicity >100 ng/ml Performed By: #### B MP, ANION, EGFR1 #### [employer] [address] [place] [address] Vitamin B12 & FolateOrdered By: Leann Pena on 09-19-2019 Cobalamin (Vitamin B12) [Mass/Vol] 1000 pg/mL High 211 - 911 pg/mL [employer] Phone: Folate 18.1 ng/mL 4.8 - 24.2 ng/mL [employer] Phone: Comment on above: Performed at [facility] [address] [place] [address] Interpretation and review of laboratory results Abnormal [employer] Phone: Vitamin D 25 HydroxyOrdered By: Leann Pena on 09-19-2019 Vit D, 25-Hydroxy 31 ng/ml 30 - 100 ng/ml [employer] Phone: Comment on above: Vitamin D Status Ran ge Deficiency <20 ng/ml Insuffiency 20-30 ng/ml Sufficiency 30-100 ng/ml Toxicity >100 ng/ml Performed at [facility] [address] [place] [address] GFR, ESTIMATEDon 07-02-2019 GFR/1.73 sq M.predicted MDRD (S/P/Bld) [Vol rate/Area] 86 ml/min/1.73m2 Abnormal [facility] Comment on above: Result Comment: Evelyn garces Description GFR, ml/min/1.73 m2 - At increased risk > or = 60 (with chronic kidney disease risk factors) 1 Normal or increased GFR > or = 90 2 Mildly or decreased GFR 60 - 89 3 Moderately decreased GFR 30 - 59 4 Severely decreased GFR 15 - 29 5 Kidney failure <15 (or dialysis) Estimated GFR calculated using abbreviated MDRD formula as recommended by National Kidney Foundation. Calculation based upon serum creatinine and adjusted for age, gender & race. Stacia. Internal Med., Vol. 139 (2) pg 137-147. Performed By: #### B MP, ANION, EGFR1 #### [employer] [address] [place] [address] ANION GAPon 07-01-2019 Anion gap [Moles/Vol] 11.0 mmol/L Normal 8.0-16.0 [facility] Comment on above: Result Comment: ANIO N GAP = Sodium -(Chloride + CO2) Performed By: #### B MP, ANION, EGFR1 #### [employer] [address] [place] [address] BASIC METABOL PANELon 2018 Calcium [Mass/Vol] 9.9 mg/dL Normal 8.5-10.5 [facility] Comment on above: Performed By: #### B MP, ANION, EGFR1 #### [employer] [address] [place] [address] Chloride [Moles/Vol] 104 mmol/L Normal 98-111 [facility] Comment on above: Performed By: #### B MP, ANION, EGFR1 #### [employer] [address] [place] [address] CO2 [Moles/Vol] 31 mmol/L Normal 23-33 [facility] Comment on above: Performed By: #### B MP, ANION, EGFR1 #### [employer] [address] [place] [address] Creatinine [Mass/Vol] 0.9 mg/dL Normal 0.4-1.2 [facility] Comment on above: Performed By: #### B MP, ANION, EGFR1 #### [facility] [address] [place] [address] Glucose [Mass/Vol] 91 mg/dL Normal 70-108 [facility] Comment on above: Performed By: #### B MP, ANION, EGFR1 #### [facility] [address] [place] [address] Potassium [Moles/Vol] 4.1 mmol/L Normal 3.5-5.2 [facility] Comment on above: Performed By: #### B MP, ANION, EGFR1 #### [facility] [address] [place] [address] Sodium [Moles/Vol] 146 mmol/L High 135-145 [facility] Comment on above: Performed By: #### B MP, ANION, EGFR1 #### [facility] [address] [place] [address] Urea nitrogen [Mass/Vol] 17 mg/dL Normal 7-22 [facility] Comment on above: Performed By: #### B MP, ANION, EGFR1 #### [facility] [address] [place] [address] Basic Metabolic Profon 09-06 (cont.) Normal [facility] Comment on above: Result Comment: Aver age GFR for 50-59 years old: 93 mL/min/1.73sq mChronic Kidney Disease: <60 mL/min/1.73sq mKidney failure: <15 mL/min/1.73sq meGFR calculated using average adult body mass. Additional eGFR calculator available at:http://www.[employer].Jdguanjia/multiple_crcl_2012.htm Performed By: #### C BC, BMP ####[employer] [place], [place] [id number] Anion gap 3 molar conc 11 mmol/L Normal 9-17 [facility] Comment on above: Performed By: #### C BC, BMP ####[employer] [place], [place] [id number] Calcium mass conc 8.9 mg/dL Normal 8.6-10.4 [facility] Comment on above: Performed By: #### C BC, BMP ####[address] [place] [address] Chloride molar conc 103 mmol/L Normal 98-107 [facility] Comment on above: Performed By: #### C BC, BMP ####[address] [address] CO2 molar conc 27 mmol/L Normal 20-31 [facility] Comment on above: Performed By: #### C BC, BMP ####[address] [place] [address] Creatinine mass conc 1.03 mg/dL Normal 0.70-1.20 [facility] Comment on above: Performed By: #### C BC, BMP ####[facility] [place] [address] GFR, Amer >60 Normal >60 [facility] Comment on above: Performed By: #### C BC, BMP ####[address] [address] GFR,non Amer >60 Normal >60 [facility] Comment on above: Performed By: #### C BC, BMP ####[address] [address] Glucose mass conc 122 mg/dL High 70-99 [facility] Comment on above: Performed By: #### C BC, BMP ####[facility] [place] [address] Potassium molar conc 3.9 mmol/L Normal 3.7-5.3 [facility] Comment on above: Performed By: #### C BC, BMP ####[facility] [place] [address] Sodium molar conc 141 mmol/L Normal 135-144 [facility] Comment on above: Performed By: #### C BC, BMP ####[facility] [address] [address] Urea nitrogen mass conc 20 mg/dL Normal 6-20 [facility] Comment on above: Performed By: #### C BC, BMP ####[facility] [address] [address] BUN/CRE Ratio NOT REPORTED Normal 9-20 [facility] Comment on above: Performed By: #### C BC, BMP ####[facility] [address] [address] Staging: NOT REPORTED Normal [facility] Comment on above: Performed By: #### C BC, BMP ####[facility] [address] [address] CBCon 09-06-2018 Erythrocyte distribution width Auto Ratio (RBC) 13.2 % Normal 11.8-14.4 [facility] Comment on above: Performed By: #### C BC, BMP ####[facility] [address] [address] Hematocrit Auto Volume Fraction (Bld) 42.9 % Normal 40.7-50.3 [facility] Comment on above: Performed By: #### C BC, BMP ####[facility] [address] [address] Hemoglobin mass conc (Bld) 14.2 g/dL Normal 13.0-17.0 [facility] Comment on above: Performed By: #### C BC, BMP ####[facility] [address] [address] MCH Auto Entitic mass (RBC) 29.8 pg Normal 25.2-33.5 [facility] Comment on above: Performed By: #### C BC, BMP ####[facility] [address] [place] [address] MCHC Auto mass conc (RBC) 33.1 g/dL Normal 28.4-34.8 [facility] Comment on above: Performed By: #### C BC, BMP ####[facility] [address] [place] [address] MCV Auto Entitic volume (RBC) 89.9 fL Normal 82.6-102.9 [facility] Comment on above: Performed By: #### C BC, BMP ####[facility] [place] [address] NRBC Automated 0.0 per 100 WBC Normal 0.0 [facility] Comment on above: Performed By: #### C BC, BMP ####[facility] [address] [place] [address] Platelet mean volume Auto Entitic volume (Bld) 10.6 fL Normal 8.1-13.5 [facility] Comment on above: Performed By: #### C BC, BMP ####[facility] [place] [address] Platelets Auto #/vol (Bld) 264 10*3/uL Normal 138-453 [facility] Comment on above: Performed By: #### C BC, BMP ####[facility] [address] [place] [address] RBC Auto #/vol (Bld) 4.77 10*6/uL Normal 4.21-5.77 [facility] Comment on above: Performed By: #### C BC, BMP ####[facility] [place] [address] WBC Auto #/vol (Bld) 9.2 10*3/uL Normal 3.5-11.3 [facility] Comment on above: Performed By: #### C BC, BMP ####[address] [place], [place] [address] Surgical Pathologyon 018 Surgical Pathology (NOTE)[id number] Y LABORATORIESCONSULTWALDEN BEHAVIORAL CARE PATHOLOGISTS [facility], SMYRNAANATOMIC [address] [place] [address] [phone] Fax: SURGICAL PATHOLOGY CONSULTATIONPatient Name: Ruslan JONES Rec: [id number] Number: [id number]: 09/05/2018Received: 09/05/2018Reported: 09/06/2018 14:41-- Diagnosis --STOMACH, PARTIAL GASTRECTOMY:- MINIMAL CHRONIC GASTRITIS.- INCREASED SUBMUCOSAL ADIPOSE TISSUE.- SEE MICROSCOPIC DESCRIPTION.Wei Narvaez,Electronically Signed Out /09/06/2018Clinical InformationPre-op Diagnosis: MORBID OBESITY, HYPERTENSION, OBSTRUCTIVE SLEEPAPNEA Operative Findings: PORTION OF STOMACH AND CONTENTSOperation Performed: ROBOTIC LAPAROSCOPIC GASTRECTOMY SLEEVESource of Specimen1: PORTION OF STOMACHGross Description NADINE JONES, PORTION OF STOMACH AND CONTENTS 19.0 x 5.5 x 3.4 cmportion of stomach with a staple line that runs along its length. Theserosa is pink-barrientos and the mucosa is pink-red with no areas ofgranularity or masses. [employer] sections 1cs. tmMicroscopic DescriptionMinimal chronic gastritis is present. Submucosal adipose tissueappears increased. The muscularis propria smooth muscle and serosaare unremarkable. There is no evidence of Helicobacter pyloriinfection, intestinal metaplasia, dysplasia or malignancy. Normal [facility] Comment on above: Performed By: #### P PPVS ####[address] [place] [address] Nicotineon 08-24-2018 1-MU-Jbgqidfu <2 Normal [facility] Comment on above: Performed By: #### C BC, PT, BMP ####[employer] [place], [place] 6079[address] Cotinine <2 Normal [facility] Comment on above: Performed By: #### C BC, PT, BMP ####[employer] [place], [place] 9146[address] Nicotine <2 Normal [facility] Comment on above: Result Comment: (NOT E)Consistent with abstinence from nicotine-containingproducts for at least 1 week.INTERPRETIVE INFORMATION: Nicotine and Metabolites, Serum or Plasma, QuantitativeMethodology: Quantitative Liquid Chromatography-Tandem MassSpectrometryPositive cutoff: 2 ng/mLFor medical purposes only; not valid for forensic use.This test is designed to evaluate recent use ofnicotine-containing products. Passive and active exposure cannotbe discriminated definitively, although a cutoff of 10 ng/mLcotinine is frequently used for surgery qualification purposes.For smoking cessation programs or compliance testing, the absenceof expected drug(s) and/or drug metabolite(s) may indicatenon-compliance, inappropriate timing of specimen collectionrelative to drug administration, poor drug absorption, orlimitations of testing. This test cannot distinguish between useof tobacco and purified nicotine products. The concentration valuemust be greater than or equal to the cutoff to be reported aspositive.Test developed and characteristics determined by [employer]. See Compliance Statement B: Janalakshmi/CSPerformed by [employer],[address] [place] [address] nvo.Janalakshmi, Harshil Guerrero MD, Lab. Director Performed By: #### C BC, PT, BMP ####[facility] Institute[facility]uluSdvshmghkget4[address] [place] [address] Basic Metabolic Profon 08-19 (cont.) Normal [facility] Comment on above: Result Comment: Aver age GFR for 50-59 years old: 93 mL/min/1.73sq mChronic Kidney Disease: <60 mL/min/1.73sq mKidney failure: <15 mL/min/1.73sq meGFR calculated using average adult body mass. Additional eGFR calculator available at:http://www.[employer].Jdguanjia/multiple_crcl_2012.htm Performed By: #### C BC, PT, BMP ####[facility] InstituteMuluPkbfeibriwux[address] [place] [address] Anion gap 3 molar conc 11 mmol/L Normal 9-17 [facility] Comment on above: Performed By: #### C BC, PT, BMP ####[address] [place] [address] Calcium mass conc 9.6 mg/dL Normal 8.6-10.4 [facility] Comment on above: Performed By: #### C BC, PT, BMP ####[address] [address] Chloride molar conc 104 mmol/L Normal 98-107 [facility] Comment on above: Performed By: #### C BC, PT, BMP ####[address] [address] CO2 molar conc 32 mmol/L High 20-31 [facility] Comment on above: Performed By: #### C BC, PT, BMP ####[facility] InstituteMuluSxigykrxdofw[address] [place] [address] Creatinine mass conc 0.99 mg/dL Normal 0.70-1.20 [facility] Comment on above: Performed By: #### C BC, PT, BMP ####[facility] [address] [address] GFR, Amer >60 Normal >60 [facility] Comment on above: Performed By: #### C BC, PT, BMP ####[facility] [address] [place] [address] GFR,non Amer >60 Normal >60 [facility] Comment on above: Performed By: #### C BC, PT, BMP ####[facility] [address] [place] [address] Glucose mass conc 106 mg/dL High 70-99 [facility] Comment on above: Performed By: #### C BC, PT, BMP ####[address] [place] [address] Potassium molar conc 3.8 mmol/L Normal 3.7-5.3 [facility] Comment on above: Performed By: #### C BC, PT, BMP ####[address] [place] [address] Sodium molar conc 147 mmol/L High 135-144 [facility] Comment on above: Performed By: #### C BC, PT, BMP ####[address] [place] [address] Urea nitrogen mass conc 16 mg/dL Normal 6-20 [facility] Comment on above: Performed By: #### C BC, PT, BMP ####[facility] [address] [place] [address] BUN/CRE Ratio NOT REPORTED Normal - [facility] Comment on above: Performed By: #### C BC, PT, BMP ####[facility] [address] [place] [id number] Staging: NOT REPORTED Normal [facility] Comment on above: Performed By: #### C BC, PT, BMP ####Judith [id number] [place] [address] CBCon 08-19-2018 Erythrocyte distribution width Auto Ratio (RBC) 13.5 % Normal 11.8-14.4 [facility] Comment on above: Performed By: #### C BC, PT, BMP ####[facility] [id number] [place] [address] Hematocrit Auto Volume Fraction (Bld) 45.5 % Normal 40.7-50.3 [facility] Comment on above: Performed By: #### C BC, PT, BMP ####Judith [address] [place] [address] Hemoglobin mass conc (Bld) 14.8 g/dL Normal 13.0-17.0 [facility] Comment on above: Performed By: #### C BC, PT, BMP ####[address] [address] MCH Auto Entitic mass (RBC) 29.9 pg Normal 25.2-33.5 [facility] Comment on above: Performed By: #### C BC, PT, BMP ####[address] [address] MCHC Auto mass conc (RBC) 32.5 g/dL Normal 28.4-34.8 [facility] Comment on above: Performed By: #### C BC, PT, BMP ####[address] [address] MCV Auto Entitic volume (RBC) 91.9 fL Normal 82.6-102.9 [facility] Comment on above: Performed By: #### C BC, PT, BMP ####[address] [address] NRBC Automated 0.0 per 100 WBC Normal 0.0 [facility] Comment on above: Performed By: #### C BC, PT, BMP ####[address] [address] Platelet mean volume Auto Entitic volume (Bld) 10.4 fL Normal 8.1-13.5 [facility] Comment on above: Performed By: #### C BC, PT, BMP ####[address] [address] Platelets Auto #/vol (Bld) 243 10*3/uL Normal 138-453 [facility] Comment on above: Performed By: #### C BC, PT, BMP ####[address] [address] RBC Auto #/vol (Bld) 4.95 10*6/uL Normal 4.21-5.77 [facility] Comment on above: Performed By: #### C BC, PT, BMP ####Judith [address] [place] [address] WBC Auto #/vol (Bld) 7.8 10*3/uL Normal 3.5-11.3 [facility] Comment on above: Performed By: #### C BC, PT, BMP ####Judith [address] [place] [address] PTon 08-19-2018 INR Coag RelTime (PPP) 1.0 {INR} Normal [facility] Comment on above: Result Comment: Ther apeutic Range: Moderate Anticoagulant Intensity: INR = 2.0-3.0 High Anticoagulant Intensity: INR = 2.5-3.5 Performed By: #### C BC, PT, BMP ####Judith [address] [place] [address] [id number] Prothrombin time (PT) Coag time (PPP) 11.0 s Normal 9.0-12.0 [facility] Comment on above: Performed By: #### C BC, PT, BMP ####Judith [address] [place], [place] [id number] Vital Signs Date Time Vital Sign Value Performing Clinician Facility 04-22-2024 10:54-0400 Body height 182.88 cm MD Millie Pinto Work Phone: [facility] 04-22-2024 10:54-0400 Body weight 122.46 kg MD Millie Pinto Work Phone: [facility] 02-18-2024 10:57-0400 Blood Pressure Location HAO SIMS [facility] 02-18-2024 10:57-0400 Diastolic blood pressure 76 mm[Hg] HAO SIMS [facility] 02-18-2024 10:57-0400 Heart rate 84 /min HAO HERNANDEZKI [facility] 02-18-2024 10:57-0400 SaO2% (BldA) [Mass fraction] 99 % HAO HERNANDEZKI [facility] 02-18-2024 10:57-0400 Systolic blood pressure 128 mm[Hg] HAO HERNANDEZKI [facility] 12-24-2023 11:20-0400 Blood Pressure Location HAO SIMS [facility] 12-24-2023 11:20-0400 Body temperature 98.06 [degF] HAO HERNANDEZKI [facility] 12-24-2023 11:20-0400 Diastolic blood pressure 74 mm[Hg] HAO RAMOSEZTHIKI [facility] 12-24-2023 11:20-0400 Heart rate 62 /min HAO HERNANDEZKI [facility] 12-24-2023 11:20-0400 Respiratory rate 15 /min HAO SIMS [facility] 12-24-2023 11:20-0400 SaO2% (BldA) [Mass fraction] 95 % HAO HERNANDEZKI [facility] 12-24-2023 11:20-0400 Systolic blood pressure 132 mm[Hg] HAO CIERSEZTHIKI [facility] 06-19-2023 13:09-0400 Body temperature 98.42 [degF] JOSÉ MIGUEL NICOLE [facility] 06-19-2023 13:09-0400 Diastolic blood pressure 70 mm[Hg] JOSÉ MIGUEL NICOLE [facility] 06-19-2023 13:09-0400 Heart rate 64 /min JOSÉ MIGUEL NICOLE [facility] 06-19-2023 13:09-0400 Respiratory rate 21 /min JOSÉ MIGUEL NICOLE [facility] 06-19-2023 13:09-0400 SaO2% (BldA) [Mass fraction] 98 % JOSÉ MIGUEL NICOLE [facility] 06-19-2023 13:09-0400 Systolic blood pressure 137 mm[Hg] JOSÉ MIGUEL NICOLE [facility] 12-25-2022 09:43-0400 Diastolic blood pressure 93 mm[Hg] Adams SALAM [facility] 12-25-2022 09:43-0400 Heart rate 54 /min Adams SALAM [facility] 12-25-2022 09:43-0400 Respiratory rate 18 /min Adams SALAM [facility] 12-25-2022 09:43-0400 SaO2% (BldA) [Mass fraction] 95 % Adams SALAM [facility] 12-25-2022 09:43-0400 Systolic blood pressure 172 mm[Hg] Adams SALAM [facility] 12-25-2022 09:30-0400 Diastolic blood pressure 97 mm[Hg] Adams SALAM [facility] 12-25-2022 09:30-0400 Heart rate 58 /min Adams SALAM [facility] 12-25-2022 09:30-0400 Respiratory rate 20 /min Adams SALAM [facility] 12-25-2022 09:30-0400 SaO2% (BldA) [Mass fraction] 96 % Adams SALAM [facility] 12-25-2022 09:30-0400 Systolic blood pressure 182 mm[Hg] Adams SALAM [facility] 12-25-2022 09:25-0400 Diastolic blood pressure 96 mm[Hg] Adams SALAM [facility] 12-25-2022 09:25-0400 Heart rate 56 /min Adams SALAM [facility] 12-25-2022 09:25-0400 Respiratory rate 18 /min Adams SALAM [facility] 12-25-2022 09:25-0400 SaO2% (BldA) [Mass fraction] 95 % Adams SALAM [facility] 12-25-2022 09:25-0400 Systolic blood pressure 179 mm[Hg] Adams SALAM [facility] 12-25-2022 09:18-0400 Body temperature 96.98 [degF] Adams SALAM [facility] 12-25-2022 08:15-0400 Blood Pressure Location Adams SALAM [facility] 12-25-2022 08:15-0400 Body temperature 96.98 [degF] Adams SALAM [facility] 12-07-2022 09:34-0500 Diastolic blood pressure 82 mm[Hg] MATEO FISCHERLL [facility] 12-07-2022 09:34-0500 Mean blood pressure 101 mm[Hg] MATEO SIDELL [facility] 12-07-2022 09:34-0500 Systolic blood pressure 138 mm[Hg] MATEO SIDELL [facility] 12-07-2022 08:56-0500 Blood Pressure Location MATEO SIDELL [facility] 12-07-2022 08:56-0500 Body temperature 98.06 [degF] MATEO SIDELL [facility] 12-07-2022 08:56-0500 Diastolic blood pressure 78 mm[Hg] MATEO SIDELL [facility] 12-07-2022 08:56-0500 Heart rate 64 /min MATEO SIDELL [facility] 12-07-2022 08:56-0500 SaO2% (BldA) [Mass fraction] 96 % MATEO SIDELL [facility] 12-07-2022 08:56-0500 Systolic blood pressure 142 mm[Hg] MATEO SIDELL [facility] 11-15-2022 15:46-0500 Blood Pressure Location [facility] 11-15-2022 15:46-0500 Body temperature 98.78 [degF] [facility] 11-15-2022 15:46-0500 Diastolic blood pressure 78 mm[Hg] Nabil Mayo [facility] 11-15-2022 15:46-0500 Heart rate 74 /min Nabil Mayo [facility] 11-15-2022 15:46-0500 SaO2% (BldA) [Mass fraction] 88 % [facility] 11-15-2022 15:46-0500 Systolic blood pressure 166 mm[Hg] Nabil Gananthony [facility] 09-20-2022 16:43-0500 Blood Pressure Location MATEO SIDELL [facility] 09-20-2022 16:43-0500 Body temperature 99.68 [degF] MATEO SIDELL [facility] 09-20-2022 16:43-0500 Diastolic blood pressure 74 mm[Hg] MATEO SIDELL [facility] 09-20-2022 16:43-0500 Heart rate 78 /min MATEO SIDELL [facility] 09-20-2022 16:43-0500 SaO2% (BldA) [Mass fraction] 97 % MATEO SIDELL [facility] 09-20-2022 16:43-0500 Systolic blood pressure 136 mm[Hg] MATEO SIDELL [facility] 06-09-2022 10:49-0400 Blood Pressure Location MATEO SIDELL [facility] 06-09-2022 10:49-0400 Diastolic blood pressure 82 mm[Hg] MATEO SIDELL [facility] 06-09-2022 10:49-0400 Heart rate 64 /min MATEO SIDELL [facility] 06-09-2022 10:49-0400 SaO2% (BldA) [Mass fraction] 96 % MATEO SIDELL [facility] 06-09-2022 10:49-0400 Systolic blood pressure 152 mm[Hg] MATEO JUAN [facility] 06-01-2022 14:30-0400 Body height Lo Michel Other [employer] Other 06-01-2022 14:30-0400 Body mass index (BMI) [Ratio] 39.73 kg/m2 Lo Michel Other [employer] Other 06-01-2022 14:30-0400 Body temperature 97.3 [degF] Lo Michel Other [employer] Other 06-01-2022 14:30-0400 Body weight 132.9 kg Lo Michel Other [employer] Other 06-01-2022 14:30-0400 Diastolic blood pressure 98 mm[Hg] Lo Michel Other [employer] Other 06-01-2022 14:30-0400 SaO2% (BldA) [Mass fraction] 97 % Lo Michel Other [employer] Other 06-01-2022 14:30-0400 Systolic blood pressure 160 mm[Hg] Lo Michel Other [employer] Other 12-30-2019 23:09-0400 BMI (Body Mass Index) 36.6 kg/m2 [facility] 12-30-2019 23:09-0400 Body weight 122.46 kg [facility] 12-30-2019 23:09-0400 Height 182.88 cm [facility] 12-30-2019 23:07-0400 BP Diastolic 84 mm[Hg] [facility] 12-30-2019 23:07-0400 BP Systolic 153 mm[Hg] [facility] 12-30-2019 23:07-0400 Pulse (Heart Rate) 60 /min [facility] 12-30-2019 23:07-0400 Pulse Oximetry 98 % [facility] 12-30-2019 23:07-0400 Respiratory Rate 18 /min [facility] 12-30-2019 23:01-0400 Body Temperature 97.9 [degF] [facility] 11-19-2019 11:01-0500 BP Diastolic 77 mm[Hg] [facility] 11-19-2019 11:01-0500 BP Systolic 128 mm[Hg] [facility] 11-19-2019 11:01-0500 Pulse (Heart Rate) 48 /min [facility] 11-19-2019 11:01-0500 Pulse Oximetry 98 % [facility] 11-19-2019 11:01-0500 Respiratory Rate 16 /min [facility] 11-19-2019 08:12-0500 Body weight 121.5 kg [facility] 11-19-2019 08:03-0500 BMI (Body Mass Index) 37.6 kg/m2 [facility] 11-19-2019 08:03-0500 Body Temperature 97.5 [degF] [facility] 11-19-2019 08:03-0500 Height 180.34 cm [facility] Encounters Encounter Date Encounter Type Care Provider Facility Start: 12-23-2024 ambulatory HAO vieiraty:JUAN ALBERTO Paula Start: 06-23-2024 ambulatory Rachel Alysia Tonny Facility:[facility] Start: 06-09-2024 ambulatory Rachel Lancaster Facility:[facility] Start: 05-19-2024 ambulatory Rachel Lancaster Facility[facility] Start: 05-07-2024 ambulatory Millie Pinto Facility:[facility] Start: 05-05-2024 End: 05-05-2024 ambulatory Rachel Lancaster [facility] Start: 05-05-2024 End: 05-05-2024 Patient encounter procedure Rachel Lancaster [facility] Start: 04-22-2024 End: 04-22-2024 Patient encounter procedure MD Millie Pinto Work Phone: [facility] [place] Work Phone: Start: 04-22-2024 End: 04-22-2024 ambulatory NON STAFF [facility] Work Phone: Start: 04-21-2024 End: 04-21-2024 ambulatory Rachel Lancaster Facility:[facility] Start: 04-21-2024 End: 04-21-2024 Patient encounter procedure Rachel Lancaster [facility] Start: 03-31-2024 End: 03-31-2024 ambulatory Rachel Lancaster Facility:[facility] Start: 03-31-2024 End: 03-31-2024 Patient encounter procedure Rachel Lancaster [facility] Start: 03-21-2024 End: 03-21-2024 ambulatory Rachel Lancaster Facility:[facility] Start: 03-21-2024 End: 03-21-2024 Patient encounter procedure Rachel Lancaster [facility] Start: 03-06-2024 End: 03-06-2024 ambulatory Millie Pinto Facility:[facility] Start: 03-06-2024 End: 03-06-2024 Patient encounter procedure Millie Pinto [facility] Start: 02-19-2024 ambulatory Rachel Lancaster Facility:[facility] Start: 02-18-2024 End: 02-18-2024 ambulatory HAO SIMS Facility:[facility] Start: 02-18-2024 End: 02-18-2024 Patient encounter procedure HAO SIMS [facility] Start: 02-12-2024 ambulatory Rachel Lancaster Facility:[facility] Start: 01-25-2024 End: 01-25-2024 ambulatory P[employer]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 JOSÉ MIGUEL A NICOLE Facility[facility] Start: 01-25-2024 End: 01-25-2024 Patient encounter procedure JOSÉ MIGUEL A NICOLE [facility] Start: 12-26-2023 End: 12-26-2023 ambulatory 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 JOSÉ MIGUEL A NICOLE Facility:[facility] Start: 12-26-2023 End: 12-26-2023 Patient encounter procedure JOSÉ MIGUEL A NICOLE [facility] Start: 12-24-2023 End: 12-24-2023 ambulatory HAO SIMS Facility:[facility] Start: 12-24-2023 End: 12-24-2023 Patient encounter procedure HAO SIMS [facility] Start: 06-19-2023 End: 06-19-2023 ambulatory 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 JOSÉ MIGUEL A NICOLE Facility:[facility] Start: 06-19-2023 End: 06-19-2023 Patient encounter procedure JOSÉ MIGUEL A NICOLE [facility] Start: 06-08-2023 ambulatory MATEO JUAN Facility :[facility] Start: 12-25-2022 End: 12-25-2022 Patient encounter procedure Adamsarsh THOMPSON [facility] Start: 12-07-2022 End: 12-07-2022 Patient encounter procedure MATEO JUAN [facility] Start: 11-15-2022 End: 11-15-2022 Patient encounter procedure Nabil Mayo [facility] Start: 09-20-2022 End: 09-20-2022 Patient encounter procedure MATEO JUAN [facility] Start: 06-09-2022 End: 06-09-2022 Patient encounter procedure MATEO JUAN [facility] Start: 06-01-2022 End: 06-01-2022 ambulatory Lo Michel Other [employer] Other Start: 06-01-2022 Office outpatient vi sit 25 minutes Lo Michel [facility] Start: 06-01-2022 End: 06-01-2022 Patient encounter procedure PLUMBING SERVICE TECHNICIAN Lo Michel Work Phone: [facility] Start: 10-05-2021 End: 01-05-2022 Recurring LIVIA MRELOS [facility] Start: 12-30-2019 End: 12-30-2019 Emergency department patient visit Israel Merlos -Emergency Room Start: 11-19-2019 End: 11-19-2019 Admission to day surgery Israel Merlos [facility] [place] [place] Start: 09-19-2019 End: 09-20-2019 Patient encounter procedure LEANN PENA [facility] Start: 09-19-2019 End: 09-19-2019 Subsequent hospital visit by physician Israel [facility] Comment on above: TERRENCE on CPAP; Essential hypertension; Obesity, Class III, BMI 40-49.9 (morbid obesity) ([facility]) Start: 07-01-2019 End: 07-02-2019 Patient encounter procedure ISRAEL MERLOS [facility] Start: 03-03-2019 End: 03-03-2019 Emergency department patient visit ISRAEL MERLOS [facility] Start: 01-18-2019 End: 01-18-2019 Patient encounter procedure Israel Merlos -Lab [facility] Start: 09-05-2018 End: 09-06-2018 Patient encounter procedure ADÁN Hatfield [facility] Start: 08-19-2018 Encounter for other preprocedural examination ADÁN [facility] Start: 08-19-2018 End: 08-24-2018 Patient encounter procedure ADÁN Hatfield [facility] Encounter for other preprocedural examination ADÁN [facility] Procedures Date Procedure Procedure Detail Performing Clinician Start: 04-22-2024 MR prostate wo/w con MD Millie Pinto Work Phone: Start: 12-25-2022 Colonoscopy Adams INDERJIT [place] Start: 11-19-2019 Transurethral cystoscopy Israel Merlos Start: 11-19-2019 Optical urethrotomy PAMELA MERLOS Start: 10-02-2019 Cystourethroscopy wi th dilation of urethral stricture LIVIA MERLOS Start: 09-19-2019 25 hydroxy includes fractions if performed ISRAEL MERLOS Start: 09-19-2019 Antibody bordetella JULIA MERLOS Start: 09-19-2019 Assay of ferritin ISRAEL MERLOS Start: 09-19-2019 Assay of magnesium MICHELE MERLOS Start: 09-19-2019 Assay of parathormone J FINADEBI MERLOS Start: 09-19-2019 Assay of thiamine-vitamin b-1 ISRAEL MERLOS Start: 09-19-2019 Assay of thyroid sti mulating hormone tsh ISRAEL MERLOS Start: 09-19-2019 Assay of vitamin a MICHELE MERLOS Start: 09-19-2019 Assay of zinc ISRAEL DUARTE Start: 09-19-2019 Blood count complete automated ISRAEL MERLOS Start: 09-19-2019 Comprehensive metabolic panel ISRAEL MERLOS Start: 09-19-2019 Creatinine blood ISRAEL MERLOS Start: 09-19-2019 Cyanocobalamin vitamin b-12 ISRAEL AZEVEDOAGHER Start: 09-19-2019 Iron binding capacity J FINA MERLOS Start: 09-19-2019 Lipid panel ISRAEL AZEVEDO LUIS Start: 09-19-2019 Anion gap [Moles/Vol] S basilia Pena TEACHER AIDE CLERICAL - 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 Work Phone: Start: 09-19-2019 Comprehensive metabolic panel Leann Pena TEACHER AIDE CLERICAL - 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 Work Phone: Start: 09-19-2019 GLOMERULAR FILTRATIO N RATE, ESTIMATED Leann Pena TEACHER AIDE CLERICAL - 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 Work Phone: Start: 09-19-2019 Lipid panel Leann Ricketts De smond TEACHER AIDE CLERICAL [employer] Work Phone: Start: 09-19-2019 VITAMIN B12 & FOLATE Sh dougbryan Pena TEACHER AIDE CLERICAL - 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 Work Phone: Start: 07-01-2019 Antibody bordetella JULIA MERLOS Start: 07-01-2019 Basic metabolic pane l calcium total ISRAEL MERLOS Start: 07-01-2019 Creatinine blood ISRAEL MERLOS Start: 09-06-2018 DISCHARGE PATIENT JOVITA FIGUEROA Start: 09-06-2018 HOME BIPAP OR CPAP LAMONT FIGUEROA Start: 09-06-2018 INCENTIVE SPIROMETRY RT ADÁN FIGUEROA Start: 09-06-2018 INITIATE OXYGEN THER APY PROTOCOL ADÁN FIGUEROA Start: 09-06-2018 INCENTIVE SPIROMETRY RT ADÁN FIGUEROA Start: 09-06-2018 Basic metabolic pane l calcium total ADÁN FIGUEROA Start: 09-06-2018 Blood count complete automated ADÁN FIGUEROA Start: 09-06-2018 INCENTIVE SPIROMETRY RT ADÁN FIGUEROA Start: 09-05-2018 INCENTIVE SPIROMETRY RT ADÁN FIGUEROA Start: 09-05-2018 INCENTIVE SPIROMETRY RT ADÁN FIGUEROA Start: 09-05-2018 INCENTIVE SPIROMETRY RT ADÁN FIGUEROA Start: 09-05-2018 INCENTIVE SPIROMETRY RT ADÁN FIGUEROA Start: 09-05-2018 INCENTIVE SPIROMETRY RT ADÁN FIGUEROA Start: 09-05-2018 SURGICAL PATHOLOGY LAMONT FIGUEROA Start: 09-05-2018 TELEMETRY MONITORING MA TTKANDICE [place] Start: 09-05-2018 IP CONSULT TO RESPIR ATORY CARE ADÁN FIGUEROA Start: 09-05-2018 ENCOURAGE DEEP BREAT TARA AND COUGHING ADÁN FIGUEROA Start: 09-05-2018 FULL CODE ADÁN RUBIO Start: 09-05-2018 INCENTIVE SPIROMETRY RT ADÁN FIGUEROA Start: 09-05-2018 PLACE INTERMITTENT P NEUMATIC COMPRESSION DEVICE ADÁN FIGUEROA Start: 09-05-2018 ABDOMINAL BINDER OC FIGUEROA Start: 09-05-2018 AMBULATE PATIENT OC FIGUEROA Start: 09-05-2018 DIET NPO, NOW ADÁN FOSTER Start: 09-05-2018 INITIATE OXYGEN THER APY PROTOCOL ADÁN FIGUEROA Start: 09-05-2018 NOTIFY PHYSICIAN (SPECIFY) ADÁN FIGUEROA Start: 09-05-2018 VITAL SIGNS ADÁN RUBIO Start: 09-05-2018 PATIENT STATUS (FROM ED OR OR/PROCEDURAL) ADÁN FIGUEROA Start: 09-05-2018 TRANSFER PATIENT OC FIGUEROA Start: 09-05-2018 SURGICAL PATHOLOGY LAMONT [facility] [place] Start: 09-05-2018 HOME BIPAP OR CPAP LAMONT ABHINAV [place] Start: 09-05-2018 HOME BIPAP OR CPAP LAMONT W [place] Start: 09-05-2018 Potassium serum plas ma/whole blood ADÁN FIGUEROA Start: 08-19-2018 EKG 12-LEAD ADÁN RUBIO Start: 08-19-2018 Basic metabolic pane l calcium total ADÁN FIGUEROA Start: 08-19-2018 Blood count complete automated ADÁN FIGUEROA Start: 08-19-2018 NICOTINE, BLOOD ADÁN FIGUEROA Start: 08-19-2018 Prothrombin time OC FIGUEROA Arthroplasty of knee LIVIA GREENFIELD Gastric sleeve LIVIA PATEL ER Shoulder region stru cture (body structure) LIVIA MERLOS Plan of Treatment Date Care Activity Detail Author Start: 03-23-2024 Lipid screen Lipid screen [facility] Work Phone: Start: 07-01-2020 Creatinine monitoring Creatinine mon itoring [facility] Work Phone: Start: 07-01-2020 Potassium monitoring Potassium monit [facility] Work Phone: Start: 01-19-2020 A1C test (Diabetic o r Prediabetic) A1C test (Diabetic or Prediabetic) [employer] Phone: Start: 09-22-2019 End: 09-22-2019 Patient encounter procedure 09/22/2019 Office Visit Bariatrics Leann Pena, TEACHER AIDE CLERICAL - 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 [address] [address] [place] [address] [facility] Start: 06-01-2019 Influenza vaccination Flu vaccine (# 1) [employer] Phone: Start: 2010 Colon cancer screen colonoscopy Colon cancer screen colonoscopy [employer] Phone: Start: 2010 Shingles Vaccine (1 of 2) Shingles Vaccine (1 of 2) [employer] Phone: Start: 1975 HIV screen HIV screen [employer] Phone: Start: 1971 DTaP/Tdap/Td vaccine (1 - Tdap) DTaP/Tdap/Td vaccine (1 - Tdap) [employer] Phone: Start: 1960 Hepatitis C screen Hepatitis C scree n [employer] Phone: Patient Education Care For Your Stitches (ED) Fall Prevention (ED) Facial Laceration (ED) [facility] Patient referral [facility] End: 09-19-2019 Vitamin A Vitamin A Lab Routine TERRENCE on CPAP Essential hypertension Obesity, Class III, BMI 40-49.9 (morbid obesity) ([facility]) 1 Occurrences starting 09/19/2019 until 09/19/2019 [employer] Phone: Comment on above: 1 Occurrences starti ng 09/19/2019 until 09/19/2019 Vitamin A Vitamin A Lab Ro utine TERRENCE on CPAP Essential hypertension Obesity, Class III, BMI 40-49.9 (morbid obesity) ([facility]) 09/19/2019 8:39 AM EST [employer] Phone: End: 09-19-2019 Vitamin B1 Vitamin B1 Lab Routine TERRENCE on CPAP Essential hypertension Obesity, Class III, BMI 40-49.9 (morbid obesity) ([facility]) 1 Occurrences starting 09/19/2019 until 09/19/2019 [employer] Phone: Comment on above: 1 Occurrences starti ng 09/19/2019 until 09/19/2019 Vitamin B1 Vitamin B1 Lab R outine TERRENCE on CPAP Essential hypertension Obesity, Class III, BMI 40-49.9 (morbid obesity) ([facility]) 09/19/2019 8:39 AM [employer] Phone: End: 09-19-2019 Zinc Zinc Lab Routine TERRECNE on CPAP Essential hypertension Obesity, Class III, BMI 40-49.9 (morbid obesity) ([facility]) 1 Occurrences starting 09/19/2019 until 09/19/2019 [employer] Phone: Comment on above: 1 Occurrences starti ng 09/19/2019 until 09/19/2019 Zinc Zinc Lab Routine TERRENCE on CPAP Essential hypertension Obesity, Class III, BMI 40-49.9 (morbid obesity) ([facility]) 09/19/2019 8:39 AM [employer] Phone: Immunizations Immunization Date Immunization Notes Care Provider Vinicius jasso 02-26-2021 SARS-CoV-2 (COVID-19 ) Ad26 vaccine, recombinant MATEO YESSICA [facility] Comment on above: Result Comment: 2021: [id number] NEGATED: Highlighted row has not occurred!12-24-2023 influenza virus vaccine, unspecified formulation HAO SIMS [facility] [place] NEGATED: Highlighted row has not occurred!10-18-2022 influenza virus vaccine, unspecified formulation Nabil Mayo [facility] NEGATED: Highlighted row has not occurred!09-20-2022 influenza virus vaccine, unspecified formulation MATEO SIDEMARILIA St. [facility] NEGATED: Highlighted row has not occurred!07-12-2020 influenza virus vaccine, unspecified formulation LIVIA MERLOS [facility] NEGATED: Highlighted row has not occurred!10-24-2019 influenza virus vaccine, live, attenuated, for intranasal use LIVIA MERLOS [facility] Payers Date Payer Category Payer Self-pay [id number] 2022 Unknown [id number] 2022 Unknown [id number] 2015 Unknown [id number] 2015 Unknown BCBS [place] - [place] P PO xxxxxxxxxxxx 2015-Present [address] [place] [address] xxxxxxxxxxxx [id number] .[id number] 1960 Unknown [id number] 2.16.840.1.396420.3.579.2.175 1960 Unknown [id number] 2.16.840.1.354922.3.579.2.175 1960 Unknown [id number] 2.16.840.1.025353.3.579.2.175 1960 Unknown [id number] 2.16.840.1.586779.3.579.2.93 1960 Unknown [id number] 2.16.840.1.231681.3.579.2.93 1960 Unknown [id number] 2.16.840.1.654585.3.579.2.93 1960 Unknown [id number] 2.16.840.1.832111.3.579.2.727 1960 Unknown [id number] 2.16.840.1.596819.3.579.2.727 1960 Unknown [id number] 2.16.840.1.694913.3.579.2. 1960 Unknown [id number] 2.16.840.1.808841.3.579.2. 1960 Unknown [id number] 2.16.840.1.922934.3.579.2. 1960 Unknown [id number] 2.16.840.1.293144.3.579.2. 1960 Unknown [id number] 2.16.840.1.794865.3.579.2. 1960 Unknown [id number] 2.16.840.1.418394.3.579.2. 1960 Unknown [id number] 2.16.840.1.988712.3.579.2 1960 Unknown [id number] 2.16.840.1.595293.3.579.2 1960 Unknown [id number] 2.16.840.1.043192.3.579.2 1960 Unknown [id number] 2.16.840.1.544534.3.579.2. 1960 Unknown [id number] 2.16.840.1.291586.3.579.2 1960 Unknown [id number] 2.16.840.1.468922.3.579.2 1960 Unknown [id number] 2.16.840.1.259657.3.579.2 1960 Unknown [id number] 2.16.840.1.952662.3.579. Unknown [id number] Unknown [place] BC/BS [id number] Unknown [id number] 2.16.840.1.585446.3.579.2.531 Social History Date Type Detail Facility Start: 12-30-2019 End: 03-06-2024 Tobacco smoking status NCIS Never smoked tobacco (finding) [facility] Start: 1960 Sex Assigned At Male [facility] Start: 11-19-2019 End: 03-26-2020 Tobacco smoking status NCIS Ex-smoker (finding) [employer] Phone: Start: 10-01-1974 End: 10-01-1984 History of tobacco use Current smoker [facility] Start: 10-01-1974 End: 10-01-1984 History of tobacco use Cigarette Smoker [facility] Start: 07-04-2019 Cigarettes smoked current (pack per day) - Reported [employer] Phone: Start: 07-04-2019 Alcohol intake Current drinke r of alcohol (finding) [employer] Phone: Sex Assigned At Not on file [employer] Phone: Tobacco smoking status Never [facility] Sex Assigned At Male [facility] Medical Equipment Procedure Code Equipment Code Equipment Origin al Text Equipment Identifier Dates Arthroplasty, knee, bilateral, total Orthopaedic cement, non-medicated [id number] FDA Start: 03-22-2020 Arthroplasty, knee, bilateral, total Polyethylene patella prosthesis ()[id number] FDA Start: 03-22-2020 Arthroplasty, knee, bilateral, total Polyethylene patella prosthesis ()[id number] FDA Start: 03-22-2020 Arthroplasty, knee, bilateral, total Knee stem ()[id number] FDA Start: 03-22-2020 Arthroplasty, knee, bilateral, total Knee stem ()[id number] FDA Start: 03-22-2020 Arthroplasty, knee, bilateral, total Uncoated knee tibia prosthesis, metallic ()[id number] FDA Start: 03-22-2020 Arthroplasty, knee, bilateral, total Uncoated knee femur prosthesis ()[id number] FDA Start: 03-22-2020 Arthroplasty, knee, bilateral, total Uncoated knee femur prosthesis ()[id number] FDA Start: 03-22-2020 Arthroplasty, knee, bilateral, total Tibial insert ()[id number] FDA Start: 03-22-2020 Arthroplasty, knee, bilateral, total Tibial insert ()[id number] FDA Start: 03-22-2020 Arthroplasty, knee, bilateral, total Uncoated knee tibia prosthesis, metallic ()[id number] FDA Start: 03-22-2020 Goals Date Patient Goal Desired Activity /State Functional Status Date Assessment Result Facility 03-06-2024 Functional Status N/A [facility] 02-18-2024 Functional Status N/A [facility] 12-24-2023 Functional Status N/A [facility] 06-19-2023 Functional Status N/A [facility] 12-25-2022 Functional Status N/A [facility] 12-07-2022 Functional Status N/A [facility] 11-15-2022 Functional Status N/A [facility] 09-20-2022 Functional Status N/A [facility] 06-09-2022 Functional Status N/A [facility] Clinical Notes 06-01-2022 to 03-06-2024 Note Date & Type Note Facility 03-06-2024 Hospital Discharge instructions Patient Education 03/06/2024 15:09:31 Prostate Cancer Screening Prostate Cancer Screening Prostate cancer screening is testing that is done to check for the presence of prostate cancer in men. The prostate gland is a walnut-sized gland that is located below the bladder and in front of the rectum in males. The function of the prostate is to add fluid to semen during ejaculation. Prostate cancer is one of the most common types of cancer in men. Who should have prostate cancer screening? Screening recommendations vary based on age and other risk factors, as well as between the professional organizations who make the recommendations. In general, screening is recommended if: You are age 50 to 70 and have an average risk for prostate cancer. You should talk with your health care provider about your need for screening and how often screening should be done. Because most prostate cancers are slow growing and will not cause , screening in this age group is generally reserved for men who have a 10- to 15-year life expectancy. You are younger than age 50, and you have these risk factors: ?Having a father, brother, or uncle who has been diagnosed with prostate cancer. The risk is higher if your family member's cancer occurred at an early age or if you have multiple family members with prostate cancer at an early age. ?Being a male who is Black or is of [place] or sub-Saharan descent. In general, screening is not recommended if: You are younger than age 40. You are between the ages of 40 and 49 and you have no risk factors. You are 70 years of age or older. At this age, the risks that screening can cause are greater than the benefits that it may provide. If you are at high risk for prostate cancer, your health care provider may recommend that you have screenings more often or that you start screening at a younger age. How is screening for prostate cancer done? The recommended prostate cancer screening test is a blood test called the prostate-specific antigen (PSA) test. PSA is a protein that is made in the prostate. As you age, your prostate naturally produces more PSA. Abnormally high PSA levels may be caused by: Prostate cancer. An enlarged prostate that is not caused by cancer (benign prostatic hyperplasia, or BPH). This condition is very common in older men. A prostate gland infection (prostatitis) or urinary tract infection. Certain medicines such as male hormones (like testosterone) or other medicines that raise testosterone levels. A rectal exam may be done as part of prostate cancer screening to help provide information about the size of your prostate gland. When a rectal exam is performed, it should be done after the PSA level is drawn to avoid any effect on the results. Depending on the PSA results, you may need more tests, such as: A physical exam to check the size of your prostate gland, if not done as part of screening. Blood and imaging tests. A procedure to remove tissue samples from your prostate gland for testing (biopsy). This is the only way to know for certain if you have prostate cancer. What are the benefits of prostate cancer screening? Screening can help to identify cancer at an early stage, before symptoms start and when the cancer can be treated more easily. There is a small chance that screening may lower your risk of dying from prostate cancer. The chance is small because prostate cancer is a slow-growing cancer, and most men with prostate cancer from a different cause. What are the risks of prostate cancer screening? The main risk of prostate cancer screening is diagnosing and treating prostate cancer that would never have caused any symptoms or problems. This is called overdiagnosisand overtreatment. PSA screening cannot tell you if your PSA is high due to cancer or a different cause. A prostate biopsy is the only procedure to diagnose prostate cancer. Even the results of a biopsy may not tell you if your cancer needs to be treated. Slow-growing prostate cancer may not need any treatment other than monitoring, so diagnosing and treating it may cause unnecessary stress or other side effects. Questions to ask your health care provider When should I start prostate cancer screening? What is my risk for prostate cancer? How often do I need screening? What type of screening tests do I need? How do I get my test results? What do my results mean? Do I need treatment? Where to find more information The [place] [employer]: www.cancer.org [place] [employer]: www.auanet.org Contact a health care provider if: You have difficulty urinating. You have pain when you urinate or ejaculate. You have blood in your urine or semen. You have pain in your back or in the area of your prostate. Summary Prostate cancer is a common type of cancer in men. The prostate gland is located below the bladder and in front of the rectum. This gland adds fluid to semen during ejaculation. Prostate cancer screening may identify cancer at an early stage, when the cancer can be treated more easily and is less likely to have spread to other areas of the body. The prostate-specific antigen (PSA) test is the recommended screening test for prostate cancer, but it has associated risks. Discuss the risks and benefits of prostate cancer screening with your health care provider. If you are age 70 or older, the risks that screening can cause are greater than the benefits that it may provide. This information is not intended to replace advice given to you by your health care provider. Make sure you discuss any questions you have with your health care provider. Document Revised: 03/13/2022 Document Reviewed: 03/13/2022 [employer] Patient Education 2022 [employer]. Follow Up Care 02/12/2024 10:50:40 With:Blair ROGERS, Millie Acevedo URL, URO Address: When: Unknown [facility] 03-06-2024 Note Chief Complaint Referral HPI Staff 63 year old male referred by Sera ESCAMILLAP-Fernanda for elevated PSA. Pt. seen Dr. Mireles 2019, previous DX: BPH w/LUTS, feeling if incomplete bladder emptying and unspecified urethral stricture. S/P cysto/urethrotomy done 11/19/19. PSA 8.7 done 01/25/24 7.7 done 12/26/23 Dysuria: no Incomplete bladder emptying: no Hematuria: no Frequency: Pt. states in the morning every 20mins due to water pill, Pt. states after water pill he will urinate every 2-3 hours Urgency: no Nocturia: 1x Stream: good stream Post void dripping: no Wearing pads/ Depends: no Urge incontinence: occasionally if he waits to long Stress incontinence: no Incontinence without Sensory Awareness: no Abdominal pain: no Flank pain: no History of Present Illness Tests reviewed: reviewed UA, PSA, and external records. I have reviewed the previous health record information and history for this patient from Dr. Mireles and external provider. I have reviewed and verified the staff HPI to be accurate for this encounter. There have been no associated fever, chills, flank pain, or blood in the urine. Denies any urinary infections since last encounter. Review of Systems PHQ Score Initial Depression Screen Score: 0 SCORE ROS - Provider Constitutional: denies weight loss, denies hot flashes. Eyes: denies eye problems. Gastrointestinal: denies nausea, denies vomiting. Cardiovascular: denies chest pain or angina. Integumentary: no dryness Musculoskeletal: denies musculoskeletal symptoms. ENMT: denies otolaryngeal symptoms. Respiratory: no shortness of breath. Heme/Lymph: denies easy bleeding tendency, denies easy bruising tendency. Psychiatric: no confusion, no anxiety. Genitourinary: See HPI. Physical Exam Vitals & Measurements HT: 71 in HT: 180 cm WT: 122.3 kg WT: 269.06 lb BMI: 37.75 General Appearance: alert, no distress, well nourished, well developed male. Assessment/Plan Last seen by MACIEL 07/12/20. Referred by Jaye Sims for elevated PSA. Denies hx of KS or stroke. Not on anticoagulation. ROSALBA 6 1. Elevated PSA (R97.20: Elevated prostate specific antigen [PSA]) PSA: 03/23/19 - 4.110 12/26/23 - 7.7 01/25/24 - 8.7 Grandfather had prostate ca, unsure when he was dx'd. Sister had breast ca. No personal hx of cancer. Today I reviewed the patients past history including voiding symptoms, PSA history and any prior prostate biopsy information that is available. We discussed the controversies that exist in the field of PSA based cancer testing and the absence of exact correlation of PSA data to the presence or absence of prostate cancer on biopsy. I discussed the production of PSA by the prostate gland as well as common causes of elevated serum PSA including infection, inflammation, BPH and prostate cancer. He understood that his PSA level may also be falsely elevated due to any manipulation/instrumentation around the time of a PSA draw. I discussed the absolute value of PSA as well as PSA velocity and age specific PSA and the implications with the patient. The PCPT (prostate cancer prevention trial) risk calculator estimates his risk of prostate cancer to be 55% including a 38% risk of high grade disease and a 17% risk of low grade disease. I gave the patient management options moving forward and explained the risks/benefits of each one: -Continue monitoring PSA with repeat in 6-12 months -Proceed with prostate biopsy -Obtain prostate MRI to evaluate for suspicious lesions and increase detection of clinically significant cancer. He understands MRIs may miss malignancy in 12-16% of patients. Explained to pt that even if the MRI is neg, a bx is recommended either way given rise in PSA and age. We discussed risks of MRI fusion prostate biopsy approaches including transrectal and transperineal. Risks of the procedure were discussed to include but not be limited to bleeding, pain, infection (higher, including sepsis with transrectal approach), difficulties with urination, injury to the urethra, prostate or bladder or surrounding tissues, injury from positioning on the table, swelling and bruising of the skin, and need for further procedures. -Bilateral knee replacements. Difficulty with hip/knee movement. Mildly claustrophobic. Pt elects to proceed with MRI of prostate if it is not cost prohibitive for pt/insurance denies. -Schedule MRI prostate at [facility]. -Will schedule transrectal prostate biopsy +/- MRI fusion if lesion is present under MAC. Pt will proceed under local with Valium and abx if MRI negative. Risks listed above. 2. BPH with urinary obstruction (N40.1: Benign prostatic hyperplasia with lower urinary tract symptoms) UA today neg. Taking Flomax 0.8mg. IPSS 5. No urinary concerns. No hx of UTIs. -Cont medical management and reassess after #1 3. Unspecified urethral stricture, male, unspecified site (N35.919: Unspecified urethral stricture, male, unspecified site) S/p cysto and (more content not included)... [facility] Comment on above: Result Comment: Elec tronically Signed By: Millie Pinto MD.br\Date and Time Signed: 03/06/24 17:06 EDT\.br\Electronically Co-Signed By: Giana Kimble.br\Date and Time Co-Signed: 03/06/24 15:23 EDT 02-18-2024 Hospital Discharge instructions Patient Education 02/18/2024 11:54:27 Managing Depression, Adult Managing Depression, Adult Depression is a mental health condition that affects your thoughts, feelings, and actions. Being diagnosed with depression can bring you relief if you did not know why you have felt or behaved a certain way. It could also leave you feeling overwhelmed with uncertainty about your future. Preparing yourself to manage your symptoms can help you feel more positive about your future. How to manage lifestyle changes Managing stress Stress is your body's reaction to life changes and events, both good and bad. Stress can add to your feelings of depression. Learning to manage your stress can help lessen your feelings of depression. Try some of the following approaches to reducing your stress (stress reduction techniques): Listen to music that you enjoy and that inspires you. Try using a meditation nirav or take a meditation class. Develop a practice that helps you connect with your spiritual self. Walk in nature, pray, or go to a place of adventist. Do some deep breathing. To do this, inhale slowly through your nose. Pause at the top of your inhale for a few seconds and then exhale slowly, letting your muscles relax. Practice yoga to help relax and work your muscles. Choose a stress reduction technique that suits your lifestyle and personality. These techniques take time and practice to develop. Set aside 5 15 minutes a day to do them. Therapists can offer training in these techniques. Other things you can do to manage stress include: Keeping a stress diary. Knowing your limits and saying no when you think something is too much. Paying attention to how you react to certain situations. You may not be able to control everything, but you can change your reaction. Adding humor to your life by watching funny films or TV shows. Making time for activities that you enjoy and that relax you. Medicines Medicines, such as antidepressants, are often a part of treatment for depression. Talk with your pharmacist or health care provider about all the medicines, supplements, and herbal products that you take, their possible side effects, and what medicines and other products are safe to take together. Make sure to report any side effects you may have to your health care provider. Relationships Your health care provider may suggest family therapy, couples therapy, or individual therapy as part of your treatment. How to recognize changes Everyone responds differently to treatment for depression. As you recover from depression, you may start to: Have more interest in doing activities. Feel less hopeless. Have more energy. Overeat less often, or have a better appetite. Have better mental focus. It is important to recognize if your depression is not getting better or is getting worse. The symptoms you had in the beginning may return, such as: Tiredness (fatigue) or low energy. Eating too much or too little. Sleeping too much or too little. Feeling restless, agitated, or hopeless. Trouble focusing or making decisions. Unexplained physical complaints. Feeling irritable, angry, or aggressive. If you or your family members notice these symptoms coming back, let your health care provider know right away. Follow these instructions at home: Activity Try to get some form of exercise each day, such as walking, biking, swimming, or lifting weights. Practice stress reduction techniques. Engage your mind by taking a class or doing some volunteer work. Lifestyle Get the right amount and quality of sleep. Cut down on using caffeine, tobacco, alcohol, and other potentially harmful substances. Eat a healthy diet that includes plenty of vegetables, fruits, whole grains, low-fat dairy products, and lean protein. Do not eat a lot of foods that are high in solid fats, added sugars, or salt (sodium). General instructions Take cgev-esr-hczjaxz and prescription medicines only as told by your health care provider. Keep all follow-up visits as told by your health care provider. This is important. Where to find support Talking to others Friends and family members can be sources of support and guidance. Talk to trusted friends or family members about your condition. Explain your symptoms to them, and let them know that you are working with a health care provider to treat your depression. Tell friends and family members how they also can be helpful. Finances Find appropriate mental health providers that fit with your financial situation. Talk with your health care provider about options to get reduced prices on your medicines. Where to find more information You can find support in your area from: Anxiety and Depression Association of [place] (ADAA): www.adaa.org Mental Health [place]: www.mentalhealthamerica.net National [place] on Mental Illness: www.brian.org Contact a health care provider if: You stop taking your antidepressant medicines, and you have any of these symptoms: ?Nausea. ?Headache. ?Light-headedness. ?Chills and body aches. ?Not being able to sleep (insomnia). You or your friends and family think your depression is getting worse. Get help right away if: You have thoughts of hurting yourself or others. If you ever feel like you may hurt yourself or others, or have thoughts about taking your own life, get help right away. Go to your nearest emergency department or: Call your local emergency services (911 in the [place] Call a suicide crisis helpline, such as the National Suicide Prevention Lifeline at or 773 in the [place] This is open 24 hours a day in the [place] Text the Crisis Text Line at 896654 (in the [place] Summary If you are diagnosed with depression, preparing yourself to manage your symptoms is a good way to feel positive about your future. Work with your health care provider on a management plan that includes stress reduction techniques, medicines (if applicable), therapy, and healthy lifestyle habits. Keep talking with your health care provider about how your treatment is working. If you have thoughts about taking your own life, call a suicide crisis helpline or text a crisis text line. This information is not intended to replace advice given to you by your health care provider. Make sure you discuss any questions you have with your health care provider. Document Revised: 04/12/2022 Document Reviewed: 07/28/2020 [employer] Patient Education 2022 [employer]. [facility] 12-24-2023 Hospital Discharge instructions Patient Education 12/24/2023 12:12:51 Urinary Incontinence Urinary Incontinence Urinary incontinence refers to a condition in which a person is unable to control where and when to pass urine. A person with this condition will urinate involuntarily. This means that the person urinates when he or she does not mean to. What are the causes? This condition may be caused by: Medicines. Infections. Constipation. Overactive bladder muscles. Weak bladder muscles. Weak pelvic floor muscles. These muscles provide support for the bladder, intestine, and, in women, the uterus. Enlarged prostate in men. The prostate is a gland near the bladder. When it gets too big, it can pinch the urethra. With the urethra blocked, the bladder can weaken and lose the ability to empty properly. Surgery. Emotional factors, such as anxiety, stress, or post-traumatic stress disorder (PTSD). Spinal cord injury, nerve injury, or other neurological conditions. Pelvic organ prolapse. This happens in women when organs move out of place and into the vagina. This movement can prevent the bladder and urethra from working properly. What increases the risk? The following factors may make you more likely to develop this condition: Age. The older you are, the higher the risk. Obesity. Being physically inactive. and childbirth. Menopause. Diseases that affect the nerves or spinal cord. Long-term, or chronic, coughing. This can increase pressure on the bladder and pelvic floor muscles. What are the signs or symptoms? Symptoms may vary depending on the type of urinary incontinence you have. They include: A sudden urge to urinate, and passing urine involuntarily before you can get to a bathroom (urge incontinence). Suddenly passing urine when doing activities that force urine to pass, such as coughing, laughing, exercising, or sneezing (stress incontinence). Needing to urinate often but urinating only a small amount, or constantly dribbling urine (overflow incontinence). Urinating because you cannot get to the bathroom in time due to a physical disability, such as arthritis or injury, or due to a communication or thinking problem, such as Alzheimer's disease (functional incontinence). How is this diagnosed? This condition may be diagnosed based on: Your medical history. A physical exam. Tests, such as: ?Urine tests. ?X-rays of your kidney and bladder. ?Ultrasound. ?CT scan. ?Cystoscopy. In this procedure, a health care provider inserts a tube with a light and camera (cystoscope) through the urethra and into the bladder to check for problems. ?Urodynamic testing. These tests assess how well the bladder, urethra, and sphincter can store and release urine. There are different types of urodynamic tests, and they vary depending on what the test is measuring. To help diagnose your condition, your health care provider may recommend that you keep a log of when you urinate and how much you urinate. How is this treated? Treatment for this condition depends on the type of incontinence that you have and its cause. Treatment may include: Lifestyle changes, such as: ?Quitting smoking. ?Maintaining a healthy weight. ?Staying active. Try to get 150 minutes of moderate-intensity exercise every week. Ask your health care provider which activities are safe for you. ?Eating a healthy diet. ?Avoid high-fat foods, like fried foods. ?Avoid refined carbohydrates like white bread and white rice. ?Limit how much alcohol and caffeine you drink. ?Increase your fiber intake. Healthy sources of fiber include beans, whole grains, and fresh fruits and vegetables. Behavioral changes, such as: ?Pelvic floor muscle exercises. ?Bladder training, such as lengthening the amount of time between bathroom breaks, or using the bathroom at regular intervals. ?Using techniques to suppress bladder urges. This can include distraction techniques or controlled breathing exercises. Medicines, such as: ?Medicines to relax the bladder muscles and prevent bladder spasms. ?Medicines to help slow or prevent the growth of a man's prostate. ?Botox injections. These can help relax the bladder muscles. Treatments, such as: ?Using pulses of electricity to help change bladder reflexes (electrical nerve stimulation). ?For women, using a medical insurance verifier to prevent urine leaks. This is a small, tampon-like, disposable device that is inserted into the urethra. ?Injecting collagen or carbon beads (bulking agents) into the urinary sphincter. These can help thicken tissue and close the bladder opening. ?Surgery. Follow these instructions at home: Lifestyle Limit alcohol and caffeine. These can fill your bladder quickly and irritate it. Keep yourself clean to help prevent odors and skin damage. Ask your health care provider about special skin creams and cleansers that can protect the skin from urine. Consider wearing pads or adult diapers. Make sure to change them regularly, and always change them right after experiencing incontinence. General instructions Take [id number] and prescription medicines only as told by your health care provider. Use the bathroom about every 3 4 hours, even if you do not feel the need to urinate. Try to empty your bladder completely every time. After urinating, wait a minute. Then try to urinate again. Make sure you are in a relaxed position while urinating. If your incontinence is caused by nerve problems, keep a log of the medicines you take and the times you go to the bathroom. Keep all follow-up visits. This is important. Where to find more information National [place] of Diabetes and Digestive and Kidney Diseases: www.niddk.nih.gov [place] [employer]: www.urologyhealth.org Contact a health care provider if: You have pain that gets worse. Your incontinence gets worse. Get help right away if: You have a fever or chills. You are unable to urinate. You have redness in your groin area or down your legs. Summary Urinary incontinence refers to a condition in which a person is unable to control where and when to pass urine. This condition may be caused by medicines, infection, weak bladder muscles, weak pelvic floor muscles, enlargement of the prostate (in men), or surgery. Factors such as older age, obesity, and childbirth, menopause, neurological diseases, and chronic coughing may increase your risk for developing this condition. Types of urinary incontinence include urge incontinence, stress incontinence, overflow incontinence, and functional incontinence. This condition is usually treated first with lifestyle and behavioral changes, such as quitting smoking, eating a healthier diet, and doing regular pelvic floor exercises. Other treatment options include medicines, bulking agents, medical devices, electrical nerve stimulation, or surgery. This information is not intended to replace advice given to you by your health care provider. Make sure you discuss any questions you have with your health care provider. Document Revised: 04/22/2021 Document Reviewed: 04/22/2021 [employer] Patient Education [address] [facility] [place] 06-19-2023 Hospital Discharge instructions Patient Education 06/19/2023 13:38:57 DASH Eating Plan DASH Eating Plan DASH stands for Dietary Approaches to Stop Hypertension. The DASH eating plan is a healthy eating plan that has been shown to: Reduce high blood pressure (hypertension). Reduce your risk for type 2 diabetes, heart disease, and stroke. Help with weight loss. What are tips for following this plan? Reading food labels Check food labels for the amount of salt (sodium) per serving. Choose foods with less than 5 percent of the Daily Value of sodium. Generally, foods with less than 300 milligrams (mg) of sodium per serving fit into this eating plan. To find whole grains, look for the word whole as the first word in the ingredient list. Shopping Buy products labeled as low-sodium or no salt added. Buy fresh foods. Avoid canned foods and pre-made or frozen meals. Cooking Avoid adding salt when cooking. Use salt-free seasonings or herbs instead of table salt or sea salt. Check with your health care provider or pharmacist before using salt substitutes. Do not tobar foods. Cook foods using healthy methods such as baking, boiling, grilling, roasting, and broiling instead. Cook with heart-healthy oils, such as olive, canola, avocado, soybean, or sunflower oil. Meal planning Eat a balanced diet that includes: ?4 or more servings of fruits and 4 or more servings of vegetables each day. Try to fill one-half of your plate with fruits and vegetables. ?6 8 servings of whole grains each day. ?Less than 6 oz (170 g) of lean meat, poultry, or fish each day. A 3-oz (85-g) serving of meat is about the same size as a deck of cards. One egg equals 1 oz (28 g). ?2 3 servings of low-fat dairy each day. One serving is 1 cup (237 mL). ?1 serving of nuts, seeds, or beans 5 times each week. ?2 3 servings of heart-healthy fats. Healthy fats called omega-3 fatty acids are found in foods such as walnuts, flaxseeds, fortified milks, and eggs. These fats are also found in cold-water fish, such as sardines, salmon, and mackerel. Limit how much you eat of: ?Canned or prepackaged foods. ?Food that is high in trans fat, such as some fried foods. ?Food that is high in saturated fat, such as fatty meat. ?Desserts and other sweets, sugary drinks, and other foods with added sugar. ?Full-fat dairy products. Do not salt foods before eating. Do not eat more than 4 egg yolks a week. Try to eat at least 2 vegetarian meals a week. Eat more home-cooked food and less restaurant, buffet, and fast food. Lifestyle When eating at a restaurant, ask that your food be prepared with less salt or no salt, if possible. If you drink alcohol: ?Limit how much you use to: ?0 1 drink a day for women who are not . ?0 2 drinks a day for men. ?Be aware of how much alcohol is in your drink. In the [place] one drink equals one 12 oz bottle of beer (355 mL), one 5 oz glass of wine (148 mL), or one 1 oz glass of hard liquor (44 mL). General information Avoid eating more than 2,300 mg of salt a day. If you have hypertension, you may need to reduce your sodium intake to 1,500 mg a day. Work with your health care provider to maintain a healthy body weight or to lose weight. Ask what an ideal weight is for you. Get at least 30 minutes of exercise that causes your heart to beat faster (aerobic exercise) most days of the week. Activities may include walking, swimming, or biking. Work with your health care provider or dietitian to adjust your eating plan to your individual calorie needs. What foods should I eat? Fruits All fresh, dried, or frozen fruit. Canned fruit in natural juice (without added sugar). Vegetables Fresh or frozen vegetables (raw, steamed, roasted, or grilled). Low-sodium or reduced-sodium tomato and vegetable juice. Low-sodium or reduced-sodium tomato sauce and tomato paste. Low-sodium or reduced-sodium canned vegetables. Grains Whole-grain or whole-wheat bread. Whole-grain or whole-wheat pasta. Brown rice. Oatmeal. Quinoa. Bulgur. Whole-grain and low-sodium cereals. Leigh bread. Low-fat, low-sodium crackers. Whole-wheat flour tortillas. Meats and other proteins Skinless chicken or turkey. Ground chicken or turkey. Pork with fat trimmed off. Fish and seafood. Egg whites. Dried beans, peas, or lentils. Unsalted nuts, nut butters, and seeds. Unsalted canned beans. Lean cuts of beef with fat trimmed off. Low-sodium, lean precooked or cured meat, such as sausages or meat loaves. Dairy Low-fat (1%) or fat-free (skim) milk. Reduced-fat, low-fat, or fat-free cheeses. Nonfat, low-sodium ricotta or cottage cheese. Low-fat or nonfat yogurt. Low-fat, low-sodium cheese. Fats and oils Soft margarine without trans fats. Vegetable oil. Reduced-fat, low-fat, or light mayonnaise and salad dressings (reduced-sodium). Canola, safflower, olive, avocado, soybean, and sunflower oils. Avocado. Seasonings and condiments Herbs. Spices. Seasoning mixes without salt. Other foods Unsalted popcorn and pretzels. Fat-free sweets. The items listed above may not be a complete list of foods and beverages you can eat. Contact a dietitian for more information. What foods should I avoid? Fruits Canned fruit in a light or heavy syrup. Fried fruit. Fruit in cream or butter sauce. Vegetables Creamed or fried vegetables. Vegetables in a cheese sauce. Regular canned vegetables (not low-sodium or reduced-sodium). Regular canned tomato sauce and paste (not low-sodium or reduced-sodium). Regular tomato and vegetable juice (not low-sodium or reduced-sodium). Pickles. Olives. Grains Baked goods made with fat, such as croissants, muffins, or some breads. Dry pasta or rice meal packs. Meats and other proteins Fatty cuts of meat. Ribs. Fried meat. Walter. Bologna, salami, and other precooked or cured meats, such as sausages or meat loaves. Fat from the back of a pig (fatback). Bratwurst. Salted nuts and seeds. Canned beans with added salt. Canned or smoked fish. Whole eggs or egg yolks. Chicken or turkey with skin. Dairy Whole or 2% milk, cream, and vhrm-qar-srvl. Whole or full-fat cream cheese. Whole-fat or sweetened yogurt. Full-fat cheese. Nondairy creamers. Whipped toppings. Processed cheese and cheese spreads. Fats and oils Butter. Stick margarine. Lard. Shortening. Ghee. Walter fat. Tropical oils, such as coconut, palm kernel, or palm oil. Seasonings and condiments Onion salt, garlic salt, seasoned salt, table salt, and sea salt. Worcestershire sauce. Tartar sauce. Barbecue sauce. Teriyaki sauce. Soy sauce, including reduced-sodium. Steak sauce. Canned and packaged gravies. Fish sauce. Oyster sauce. Cocktail sauce. Store-bought horseradish. Ketchup. Mustard. Meat flavorings and tenderizers. Bouillon cubes. Hot sauces. Pre-made or packaged marinades. Pre-made or packaged taco seasonings. Relishes. Regular salad dressings. Other foods Salted popcorn and pretzels. The items listed above may not be a complete list of foods and beverages you should avoid. Contact a dietitian for more information. Where to find more information National Heart, Lung, and Blood [place]: www.nhlbi.nih.gov [place] [employer]: www.heart.org Academy of Nutrition and Dietetics: www.eatright.org National Kidney Foundation: www.kidney.org Summary The DASH eating plan is a healthy eating plan that has been shown to reduce high blood pressure (hypertension). It may also reduce your risk for type 2 diabetes, heart disease, and stroke. When on the DASH eating plan, aim to eat more fresh fruits and vegetables, whole grains, lean proteins, low-fat dairy, and heart-healthy fats. With the DASH eating plan, you should limit salt (sodium) intake to 2,300 mg a day. If you have hypertension, you may need to reduce your sodium intake to 1,500 mg a day. Work with your health care provider or dietitian to adjust your eating plan to your individual calorie needs. This information is not intended to replace advice given to you by your health care provider. Make sure you discuss any questions you have with your health care provider. Document Revised: 08/20/2020 Document Reviewed: 08/20/2020 [employer] Patient Education 2022 [employer] Follow Up Care 05/29/2023 11:21:15 With:JOSÉ MIGUEL DIXON CNP, FAM Address: [address] [place] [address]- Business (1) When:6 months Comments:HTN [facility] [place] 12-25-2022 Evaluation + Plan note Extrac gunjan from: Title:CSB post op Author:Washington Champagne MD Date:12/25/22 Plan Transfer/Discharge: Transfer/Discharge Discharge when meets criteria ( To home ). Extracted from: Title:MALIAB GA Author:Washington Champagne MD Date:12/25/22 Plan [place] [employer] Anesthesiologists (ASA) physical status classification: Class II. Anesthetic Preoperative Plan: Anesthesia General. Future Appointments Appointment Date:06/08/2023 09:00:00 AM Scheduled Provider:MATEO JUAN CNP Location:[facility] Appointment Type: Open Future Scheduled Tests Laboratory* PSA Screen, Total 12/07/22 * CBC w/ Auto Diff 12/07/22 * Comprehensive Metabolic Panel 12/07/22 * Lipid Panel 12/07/22 [facility]03-27-2023 Hospital Discharge instructions Patient Education 12/25/2022 09:28:01 Colonoscopy, Care After Surgery [facility] (CUSTOM) Colonoscopy Care After Surgery Please read the instructions outlined below and refer to this sheet in the next few weeks. These discharge instructions provide you with general information on caring for yourself after you leave thespital. Your doctor may also give you specific instructions. While your treatment has been planned according to the most current medical practices available, unavoidable complications occasionally occur. If you have any problems or questions after discharge, please call your doctor. ACTIVITY You may resume your regular activity, but move at a slower pace for the next 24 hours. Take frequent rest periods for the next 24 hours. Walking will help get rid of the air and reduce the bloated feeling in your abdomen (belly). No driving for 24 hours (because of the anesthesia (medicine) used during the test). You may shower. Do not sign any important legal documents or operate any machinery for 24 hours (because of the anesthesia used during the test). NUTRITION Drink plenty of fluids. You may resume your normal diet as instructed by your doctor. Begin with a light meal and progress to your normal diet. Heavy or fried foods are harder to digestand may make you feel nauseated (sick to your stomach). Avoid alcoholic beverages for 24 hours or as instructed. MEDICATIONS You may resume your normal medications unless your doctor tells you otherwise. WHAT YOU CAN EXPECT TODAY Some feelings of bloating in the abdomen. Passage of more gas than usual. Spotting of blood in your stool or on the toilet paper. FOLLOW-UP Your doctor will discuss the results of your test with you. SEEK IMMEDIATE MEDICAL ATTENTION IF: There is more than a spotting of blood in your stool. There is abdominal distention (your abdomen is swollen). There is vomiting. You have a temperature over 101.5 F. There is abdominal pain or discomfort that is severe or gets worse throughout the day. 12/25/2022 09:28:01 Colon Polyps Colon Polyps Polyps are tissue growths inside the body. Polyps can grow in many places, including the large intestine (colon). A polyp may be a round bump or a mushroom-shaped growth. You could have one polyp or several. Most colon polyps are noncancerous (benign). However, some colon polyps can become cancerous over time. Finding and removing the polyps early can help prevent this. What are the causes? The exact cause of colon polyps is not known. What increases the risk? You are more likely to develop this condition if you: Have a family history of colon cancer or colon polyps. Are older than 50 or older than 45 if you are . Have inflammatory bowel disease, such as ulcerative colitis or Crohn's disease. Have certain hereditary conditions, such as: ?Familial adenomatous polyposis. ?Barrios syndrome. ?Turcot syndrome. ?Peutz Jeghers syndrome. Are overweight. Smoke cigarettes. Do not get enough exercise. Drink too much alcohol. Eat a diet that is high in fat and red meat and low in fiber. Had childhood cancer that was treated with abdominal radiation. What are the signs or symptoms? Most polyps do not cause symptoms. If you have symptoms, they may include: Blood coming from your rectum when having a bowel movement. Blood in your stool. The stool may look dark red or black. Abdominal pain. A change in bowel habits, such as constipation or diarrhea. How is this diagnosed? This condition is diagnosed with a colonoscopy. This is a procedure in which a lighted, flexible scope is inserted into the anus and then passed into the colon to examine the area. Polyps are sometimes found when a colonoscopy is done as part of routine cancer screening tests. How is this treated? Treatment for this condition involves removing any polyps that are found. Most polyps can be removed during a colonoscopy. Those polyps will then be tested for cancer. Additional treatment may be needed depending on the results of testing. Follow these instructions at home: Lifestyle Maintain a healthy weight, or lose weight if recommended by your health care provider. Exercise every day or as told by your health care provider. Do not use any products that contain nicotine or tobacco, such as cigarettes and e-cigarettes. If you need help quitting, ask your health care provider. If you drink alcohol, limit how much you have: ?0 1 drink a day for women. ? 0 2 drinks a day for men. Be aware of how much alcohol is in your drink. In the [place] one drink equals one 12 oz bottle of beer (355 mL), one 5 oz glass of wine (148 mL), or one 1 oz shot of hard liquor (44 mL). Eating and drinking Eat foods that are high in fiber, such as fruits, vegetables, and whole grains. Eat foods that are high in calcium and vitamin D, such as milk, cheese, yogurt, eggs, liver, fish, and broccoli. Limit foods that are high in fat, such as fried foods and desserts. Limit the amount of red meat and processed meat you eat, such as hot dogs, sausage, walter, and lunch meats. General instructions Keep all follow-up visits as told by your health care provider. This is important. ?This includes having regularly scheduled colonoscopies. ?Talk to your health care provider about when you need a colonoscopy. Contact a health care provider if: You have new or worsening bleeding during a bowel movement. You have new or increased blood in your stool. You have a change in bowel habits. You lose weight for no known reason. Summary Polyps are tissue growths inside the body. Polyps can grow in many places, including the colon. Most colon polyps are noncancerous (benign), but some can become cancerous over time. This condition is diagnosed with a colonoscopy. Treatment for this condition involves removing any polyps that are found. Most polyps can be removed during a colonoscopy. This information is not intended to replace advice given to you by your health care provider. Make sure you discuss any questions you have with your health care provider. Document Released: 06/13/2005 Document Revised: 01/02/2019 Document Reviewed: 01/02/2019 [employer] Patient Education 2020 [employer]. 12/25/2022 09:28:01 Hemorrhoids, Xpmv-zt-Hjti Hemorrhoids Hemorrhoids are swollen veins that may develop: In the butt (rectum). These are called internal hemorrhoids. Around the opening of the butt (anus). These are called external hemorrhoids. Hemorrhoids can cause pain, itching, or bleeding. Most of the time, they do not cause serious problems. They usually get better with diet changes, lifestyle changes, and other home treatments. What are the causes? This condition may be caused by: Having trouble pooping (constipation). Pushing hard (straining) to poop. Watery poop (diarrhea). . Being very overweight (obese). Sitting for long periods of time. Heavy lifting or other activity that causes you to strain. Anal sex. Riding a bike for a long period of time. What are the signs or symptoms? Symptoms of this condition include: Pain. Itching or soreness in the butt. Bleeding from the butt. Leaking poop. Swelling in the area. One or more lumps around the opening of your butt. How is this diagnosed? A doctor can often diagnose this condition by looking at the affected area. The doctor may also: Do an exam that involves feeling the area with a gloved hand (digital rectal exam). Examine the area inside your butt using a small tube (anoscope). Order blood tests. This may be done if you have lost a lot of blood. Have you get a test that involves looking inside the colon using a flexible tube with a camera on the end (sigmoidoscopy or colonoscopy). How is this treated? This condition can usually be treated at home. Your doctor may tell you to change what you eat, make lifestyle changes, or try home treatments. If these do not help, procedures can be done to remove the hemorrhoids or make them smaller. These may involve: Placing rubber bands at the base of the hemorrhoids to cut off their blood supply. Injecting medicine into the hemorrhoids to shrink them. Shining a type of light energy onto the hemorrhoids to cause them to fall off. Doing surgery to remove the hemorrhoids or cut off their blood supply. Follow these instructions at home: Eating and drinking Eat foods that have a lot of fiber in them. These include whole grains, beans, nuts, fruits, and vegetables. Ask your doctor about taking products that have added fiber (fibersupplements). Reduce the amount of fat in your diet. You can do this by: ?Eating low-fat dairy products. ?Eating less red meat. ?Avoiding processed foods. Drink enough fluid to keep your pee (urine) pale yellow. Managing pain and swelling Take a warm-water bath (sitz bath) for 20 minutes to ease pain. Do this 3 4 times a day. You may dothis in a bathtub or using a portable sitz bath that fits over the toilet. If told, put ice on the painful area. It may be helpful to use ice between your warm baths. ?Put ice in a plastic bag. ?Place a towel between your skin and the bag. ?Leave the ice on for 20 minutes, 2 3 times a day. General instructions Take jnzb-nvu-lqxxzbc and prescription medicines only as told by your doctor. ?Medicated creams and medicines may be used as told. Exercise often. Ask your doctor how much and what kind of exercise is best for you. Go to the bathroom when you have the urge to poop. Do not wait. Avoid pushing too hard when you poop. Keep your butt dry and clean. Use wet toilet paper or moist towelettes after pooping. Do not sit on the toilet for a long time. Keep all follow-up visits as told by your doctor. This is important. Contact a doctor if you: Have pain and swelling that do not get better with treatment or medicine. Have trouble pooping. Cannot poop. Have pain or swelling outside the area of the hemorrhoids. Get help right away if you have: Bleeding that will not stop. Summary Hemorrhoids are swollen veins in the butt or around the opening of the butt. They can cause pain, itching, or bleeding. Eat foods that have a lot of fiber in them. These include whole grains, beans, nuts, fruits, and vegetables. Take a warm-water bath (sitz bath) for 20 minutes to ease pain. Do this 3 4 times a day. This information is not intended to replace advice given to you by your health care provider. Make sure you discuss any questions you have with your health care provider. Document Released: 06/26/2009 Document Revised: 09/25/2019 Document Reviewed: 02/06/2019 [employer] Patient Education 2020 [employer]. Follow Up Care 10/18/2022 12:45:03 With:Angie THOMPSON Address: [address] [place] [address] Business (1) When: Unknown Comments:Call for any problems. [facility]03-09-2023 Hospital Discharge instructions Patient Education 12/07/2022 09:34:29 Exercising to Lose Weight Exercising to Lose Weight Exercise is structured, repetitive physical activity to improve fitness and health. Getting regularexercise is important for everyone. It is especially important if you are overweight. Being overweight increases your risk of heart disease, stroke, diabetes, high blood pressure, and several types of cancer. Reducing your calorie intake and exercising can help you lose weight. Exercise is usually categorized as moderate or vigorous intensity. To lose weight, most people needto do a certain amount of moderate-intensity or vigorous-intensity exercise each week. Moderate-intensity exercise Moderate-intensity exercise is any activity that gets you moving enough to burn at least three times more energy (calories) than if you were sitting. Examples of moderate exercise include: Walking a mile in 15 minutes. Doing light yard work. Biking at an easy pace. Most people should get at least 150 minutes (2 hours and 30 minutes) a week of moderate-intensity exercise to maintain their body weight. Vigorous-intensity exercise Vigorous-intensity exercise is any activity that gets you moving enough to burn at least six times more calories than if you were sitting. When you exercise at this intensity, you should be working hard enough that you are not able to carry on a conversation. Examples of vigorous exercise include: Running. Playing a team sport, such as football, basketball, and soccer. Jumping rope. Most people should get at least 75 minutes (1 hour and 15 minutes) a week of vigorous-intensity exercise to maintain their body weight. How can exercise affect me? When you exercise enough to burn more calories than you eat, you lose weight. Exercise also reducesbody fat and builds muscle. The more muscle you have, the more calories you burn. Exercise also: Improves mood. Reduces stress and tension. Improves your overall fitness, flexibility, and endurance. Increases bone strength. The amount of exercise you need to lose weight depends on: Your age. The type of exercise. Any health conditions you have. Your overall physical ability. Talk to your health care provider about how much exercise you need and what types of activities aresafe for you. What actions can I take to lose weight? Nutrition Make changes to your diet as told by your health care provider or diet and cessation systems outreach specialist (dietitian). This may include: ?Eating fewer calories. ?Eating more protein. ?Eating less unhealthy fats. ?Eating a diet that includes fresh fruits and vegetables, whole grains, low-fat dairy products, andlean protein. ?Avoiding foods with added fat, salt, and sugar. Drink plenty of water while you exercise to prevent dehydration or heat stroke. Activity Choose an activity that you enjoy and set realistic goals. Your health care provider can help you make an exercise plan that works for you. Exercise at a moderate or vigorous intensity most days of the week. ?The intensity of exercise may vary from person to person. You can tell how intense a workout is for you by paying attention to your breathing and heartbeat. Most people will notice their breathing and heartbeat get faster with more intense exercise. Do resistance training twice each week, such as: ?Push-ups. ?Sit-ups. ?Lifting weights. ?Using resistance bands. Getting short amounts of exercise can be just as helpful as long structured periods of exercise. Ifyou have trouble finding time to exercise, try to include exercise in your daily routine. ?Get up, stretch, and walk around every 30 minutes throughout the day. ?Go for a walk during your lunch break. ?Park your car farther away from your destination. ?If you take public transportation, get off one stop early and walk the rest of the way. ?Make phone calls while standing up and walking around. ?Take the stairs instead of elevators or escalators. Wear comfortable clothes and shoes with good support. Do not exercise so much that you hurt yourself, feel dizzy, or get very short of breath. Where to find more information [place] Department of Health and Human Services: www.hhs.gov Centers for Disease Control and Prevention (CDC): www.cdc.gov Contact a health care provider: Before starting a new exercise program. If you have questions or concerns about your weight. If you have a medical problem that keeps you from exercising. Get help right away if you have any of the following while exercising: Injury. Dizziness. Difficulty breathing or shortness of breath that does not go away when you stop exercising. Chest pain. Rapid heartbeat. Summary Being overweight increases your risk of heart disease, stroke, diabetes, high blood pressure, and several types of cancer. Losing weight happens when you burn more calories than you eat. Reducing the amount of calories you eat in addition to getting regular moderate or vigorous exercise each week helps you lose weight. This information is not intended to replace advice given to you by your health care provider. Make sure you discuss any questions you have with your health care provider. Document Released: 10/20/2011 Document Revised: 09/30/2018 Document Reviewed: 09/30/2018 [employer] Patient Education 2020 [employer] 12/07/2022 09:34:28 Budget-Friendly Healthy Eating Budget-Friendly Healthy Eating There are many ways to save money at the grocery store and continue to eat healthy. You can be successful if you: Plan meals according to your budget. Make a grocery list and only purchase food according to your grocery list. Prepare food yourself. What are tips for following this plan? Reading food labels Compare food labels between brand name foods and the store brand. Often the nutritional value is the same, but the store brand is lower cost. Look for products that do not have added sugar, fat, or salt (sodium). These often cost the same but are healthier for you. Products may be labeled as: ?Sugar-free. ?Nonfat. ?Low-fat. ?Sodium-free. ?Low-sodium. Look for lean ground beef labeled as at least 92% lean and 8% fat. Shopping Buy only the items on your grocery list and go only to the areas of the store that have the items on your list. Use coupons only for foods and brands you normally buy. Avoid buying items you wouldn't normally buy simply because they are on sale. Check online and in newspapers for weekly deals. Buy healthy items from the bulk bins when available, such as herbs, spices, flour, pasta, nuts, anddried fruit. Buy fruits and vegetables that are in season. Prices are usually lower on in- season produce. Look at the unit andrew on the anrdew tag. Use it to compare different brands and sizes to find out which item is the best deal. Choose healthy items that are often low-cost, such as carrots, potatoes, apples, bananas, and oranges. Dried or canned beans are a low-cost protein source. Buy in bulk and freeze extra food. Items you can buy in bulk include meats, fish, poultry, frozen fruits, and frozen vegetables. Avoid buying mdhvo-yq-twt foods, such as pre-cut fruits and vegetables and pre-made salads. If possible, shop around to discover where you can find the best prices. Consider other retailers such as dollar stores, larger wholesale stores, local fruit and vegetable [employer], and [employer] markets. Do not shop when you are hungry. If you shop while hungry, it may be hard to stick to your list andbudget. Resist impulse buying. Use your grocery list as your official plan for the week. Buy a variety of vegetables and fruits by purchasing fresh, frozen, and canned items. Look at the top and bottom shelves for deals. Foods at eye level (eye level of an adult or child) are usually more expensive. Be efficient with your time when shopping. The more time you spend at the store, the more money youare likely to spend. To save money when choosing more expensive foods like meats and dairy: ?Choose cheaper cuts of meat, such as bone-in chicken thighs and drumsticks instead of skinless andboneless chicken. When you are ready to prepare the chicken, you can remove the skin yourself to make it healthier. ?Choose lean meats like chicken or turkey instead of beef. ?Choose canned seafood, such as tuna, salmon, or sardines. ?Buy eggs as a low-cost source of protein. ?Buy dried beans and peas, such as lentils, split peas, or kidney beans instead of meats. Dried beans and peas are a good alternative source of protein. ?Buy the larger tubs of yogurt instead of individual-sized containers. Choose water instead of sodas and other sweetened beverages. Avoid buying chips, cookies, and other junk food. These items are usually expensive and not healthy. Cooking Make extra food and freeze the extras in meal-sized containers or in individual portions for fast meals and snacks. Pre-cook on days when you have extra time to prepare meals in advance. You can keep these meals in the fridge or freezer and reheat for a quick meal. When you come home from the grocery store, wash, peel, and cut fruits and vegetables so they are ready to use and eat. This will help reduce food waste. Meal planning Do not eat out or get fast food. Prepare food at home. Make a grocery list and make sure to bring it with you to the store. If you have a smart phone, youcould use your phone to create your shopping list. Plan meals and snacks according to a grocery list and budget you create. Use leftovers in your meal plan for the week. Look for recipes where you can cook once and make enough food for two meals. Include budget-friendly meals like stews, casseroles, and stir-tobar dishes. Try some meatless meals or try no cook meals like salads. Make sure that half your plate is filled with fruits or vegetables. Choose from fresh, frozen, or canned fruits and vegetables. If eating canned, remember to rinse them before eating. This will remove any excess salt added for packaging. Summary Eating healthy on a budget is possible if you plan your meals according to your budget, purchase according to your budget and grocery list, and prepare food yourself. Tips for buying more food on a limited budget include buying generic brands, using coupons only forfoods you normally buy, and buying healthy items from the bulk bins when available. Tips for buying cheaper food to replace expensive food include choosing cheaper, lean cuts of meat,and buying dried beans and peas. This information is not intended to replace advice given to you by your health care provider. Make sure you discuss any questions you have with your health care provider. Document Released: 05/21/2015 Document Revised: 09/18/2018 Document Reviewed: 09/18/2018 [employer] Patient Education 2020 [employer]. 12/07/2022 09:34:27 BMI for Adults BMI for Adults Body mass index (BMI) is a number that is calculated from a person's weight and height. BMI may help to estimate how much of a person's weight is composed of fat. BMI can help identify those who may be at higher risk for certain medical problems. How is BMI used with adults? BMI is used as a screening tool to identify possible weight problems. It is used to check whether aperson is obese, overweight, healthy weight, or underweight. How is BMI calculated? BMI measures your weight and compares it to your height. This can be done either in [place]ino ([place] or metric measurements. Note that charts are available to help you find your BMI quickly and easily without having to do these calculations yourself. To calculate your BMI in [place]ino [place] measurements, your health care provider will: 1.Measure your weight in pounds (lb). 2.Multiply the number of pounds by 703. For example, for a person who weighs 180 lb, multiply that number by 703, which equals 126,540. 3.Measure your height in inches (in). Then multiply that number by itself to get a measurement called inches squared. For example, for a person who is 70 in tall, the inches squared measurement is 70 in x 70 in, which equals 4900 inches squared. 4.Divide the total from Step 2 (number of lb x 703) by the total from Step 3 (inches squared): 126,540 4900 = 25.8. This is your BMI. To calculate your BMI in metric measurements, your health care provider will: 1.Measure your weight in kilograms (kg). 2.Measure your height in meters (m). Then multiply that number by itself to get a measurement called meters squared. For example, for a person who is 1.75 m tall, the meters squared measurement is 1.75 m x 1.75 m, which is equal to 3.1 meters squared. 3.Divide the number of kilograms (your weight) by the meters squared number. In this example: 70 3.1 = 22.6. This is your BMI. How is BMI interpreted? To interpret your results, your health care provider will use BMI charts to identify whether you are underweight, normal weight, overweight, or obese. The following guidelines will be used: Underweight: BMI less than 18.5. Normal weight: BMI between 18.5 and 24.9. Overweight: BMI between 25 and 29.9. Obese: BMI of 30 and above. Please note: Weight includes both fat and muscle, so someone with a muscular build, such as an athlete, may havea BMI that is higher than 24.9. In cases like these, BMI is not an accurate measure of body fat. To determine if excess body fat is the cause of a BMI of 25 or higher, further assessments may needto be done by a health care provider. BMI is usually interpreted in the same way for men and women. Why is BMI a useful tool? BMI is useful in two ways: Identifying a weight problem that may be related to a medical condition, or that may increase the risk for medical problems. Promoting lifestyle and diet changes in order to reach a healthy weight. Summary Body mass index (BMI) is a number that is calculated from a person's weight and height. BMI may help to estimate how much of a person's weight is composed of fat. BMI can help identify those who may be at higher risk for certain medical problems. BMI can be measured using Filipino measurements or metric measurements. To interpret your results, your health care provider will use BMI charts to identify whether you are underweight, normal weight, overweight, or obese. This information is not intended to replace advice given to you by your health care provider. Make sure you discuss any questions you have with your health care provider. Document Released: 05/29/2005 Document Revised: 08/30/2018 Document Reviewed: 07/31/2018 [employer] Patient Education 2020 [employer]. 12/07/2022 09:34:13 Peripheral Edema Peripheral Edema Peripheral edema is swelling that is caused by a buildup of fluid. Peripheral edema most often affects the lower legs, ankles, and feet. It can also develop in the arms, hands, and face. The area of the body that has peripheral edema will look swollen. It may also feel heavy or warm. Your clothes may start to feel tight. Pressing on the area may make a temporary dent in your skin. You may not be able to move your swollen arm or leg as much as usual. There are many causes of peripheral edema. It can happen because of a complication of other conditions such as congestive heart failure, kidney disease, or a problem with your blood circulation. It also can be a side effect of certain medicines or because of an infection. It often happens to women d uring . Sometimes, the cause is not known. Follow these instructions at home: Managing pain, stiffness, and swelling Raise (elevate) your legs while you are sitting or lying down. Move around often to prevent stiffness and to lessen swelling. Do not sit or stand for long periods of time. Wear support stockings as told by your health care provider. Medicines Take uxyp-ftw-nskpdzg and prescription medicines only as told by your health care provider. Your health care provider may prescribe medicine to help your body get rid of excess water (diuretic). General instructions Pay attention to any changes in your symptoms. Follow instructions from your health care provider about limiting salt (sodium) in your diet. Sometimes, eating less salt may reduce swelling. Moisturize skin daily to help prevent skin from cracking and draining. Keep all follow-up visits as told by your health care provider. This is important. Contact a health care provider if you have: A fever. Edema that starts suddenly or is getting worse, especially if you are or have a medical condition. Swelling in only one leg. Increased swelling, redness, or pain in one or both of your legs. Drainage or sores at the area where you have edema. Get help right away if you: Develop shortness of breath, especially when you are lying down. Have pain in your chest or abdomen. Feel weak. Feel faint. Summary Peripheral edema is swelling that is caused by a buildup of fluid. Peripheral edema most often affects the lower legs, ankles, and feet. Move around often to prevent stiffness and to lessen swelling. Do not sit or stand for long periodsof time. Pay attention to any changes in your symptoms. Contact a health care provider if you have edema that starts suddenly or is getting worse, especially if you are or have a medical condition. Get help right away if you develop shortness of breath, especially when lying down. This information is not intended to replace advice given to you by your health care provider. Make sure you discuss any questions you have with your health care provider. Document Released: 10/25/2005 Document Revised: 06/11/2019 Document Reviewed: 06/11/2019 [employer] Patient Education 1,2,3 [employer]. 12/07/2022 09:34:11 Benign Prostatic Hyperplasia Benign Prostatic Hyperplasia Benign prostatic hyperplasia (BPH) is an enlarged prostate gland that is caused by the normal agingprocess and not by cancer. The prostate is a walnut-sized gland that is involved in the production of semen. It is located in front of the rectum and below the bladder. The bladder stores urine and the urethra is the tube that carries the urine out of the body. The prostate may get bigger as a man gets older. An enlarged prostate can press on the urethra. This can make it harder to pass urine. The build-up of urine in the bladder can cause infection. Back pressure and infection may progress to bladder damage and kidney (renal) failure. What are the causes? This condition is part of a normal aging process. However, not all men develop problems from this condition. If the prostate enlarges away from the urethra, urine flow will not be blocked. If it enlarges toward the urethra and compresses it, there will be problems passing urine. What increases the risk? This condition is more likely to develop in men over the age of 50 years. What are the signs or symptoms? Symptoms of this condition include: Getting up often during the night to urinate. Needing to urinate frequently during the day. Difficulty starting urine flow. Decrease in size and strength of your urine stream. Leaking (dribbling) after urinating. Inability to pass urine. This needs immediate treatment. Inability to completely empty your bladder. Pain when you pass urine. This is more common if there is also an infection. Urinary tract infection (UTI). How is this diagnosed? This condition is diagnosed based on your medical history, a physical exam, and your symptoms. Tests will also be done, such as: A post-void bladder scan. This measures any amount of urine that may remain in your bladder after you finish urinating. A digital rectal exam. In a rectal exam, your health care provider checks your prostate by putting a lubricated, gloved finger into your rectum to feel the back of your prostate gland. This exam detects the size of your gland and any abnormal lumps or growths. An exam of your urine (urinalysis). A prostate specific antigen (PSA) screening. This is a blood test used to screen for prostate cancer. An ultrasound. This test uses sound waves to electronically produce a picture of your prostate gland. Your health care provider may refer you to a specialist in kidney and prostate diseases (urologist). How is this treated? Once symptoms begin, your health care provider will monitor your condition (active surveillance or watchful waiting). Treatment for this condition will depend on the severity of your condition. Treatment may include: Observation and yearly exams. This may be the only treatment needed if your condition and symptoms are mild. Medicines to relieve your symptoms, including: ?Medicines to shrink the prostate. ?Medicines to relax the muscle of the prostate. Surgery in severe cases. Surgery may include: ?Prostatectomy. In this procedure, the prostate tissue is removed completely through an open incision or with a laparoscope or robotics. ?Transurethral resection of the prostate (TURP). In this procedure, a tool is inserted through the opening at the tip of the penis (urethra). It is used to cut away tissue of the inner core of the prostate. The pieces are removed through the same opening of the penis. This removes the blockage. ?Transurethral incision (TUIP). In this procedure, small cuts are made in the prostate. This lessens the prostate's pressure on the urethra. ?Transurethral microwave thermotherapy (TUMT). This procedure uses microwaves to create heat. The heat destroys and removes a small amount of prostate tissue. ?Transurethral needle ablation (TUNA). This procedure uses radio frequencies to destroy and remove a small amount of prostate tissue. ?Interstitial laser coagulation (ILC). This procedure uses a laser to destroy and remove a small amount of prostate tissue. ?Transurethral electrovaporization (TUVP). This procedure uses electrodes to destroy and remove a small amount of prostate tissue. ?Prostatic urethral lift. This procedure inserts an implant to push the lobes of the prostate away from the urethra. Follow these instructions at home: Take yanm-fev-mlzowri and prescription medicines only as told by your health care provider. Monitor your symptoms for any changes. Contact your health care provider with any changes. Avoid drinking large amounts of liquid before going to bed or out in public. Avoid or reduce how much caffeine or alcohol you drink. Give yourself time when you urinate. Keep all follow-up visits as told by your health care provider. This is important. Contact a health care provider if: You have unexplained back pain. Your symptoms do not get better with treatment. You develop side effects from the medicine you are taking. Your urine becomes very dark or has a bad smell. Your lower abdomen becomes distended and you have trouble passing your urine. Get help right away if: You have a fever or chills. You suddenly cannot urinate. You feel lightheaded, or very dizzy, or you faint. There are large amounts of blood or clots in the urine. Your urinary problems become hard to manage. You develop moderate to severe low back or flank pain. The flank is the side of your body between the ribs and the hip. These symptoms may represent a serious problem that is an emergency. Do not wait to see if the symptoms will go away. Get medical help right away. Call your local emergency services (911 in the [place] Do not drive yourself to the hospital. Summary Benign prostatic hyperplasia (BPH) is an enlarged prostate that is caused by the normal aging process and not by cancer. An enlarged prostate can press on the urethra. This can make it hard to pass urine. This condition is part of a normal aging process and is more likely to develop in men over the age of 50 years. Get help right away if you suddenly cannot urinate. This information is not intended to replace advice given to you by your health care provider. Make sure you discuss any questions you have with your health care provider. Document Released: 09/17/2006 Document Revised: 08/12/2019 Document Reviewed: 10/22/2017 [employer] Patient Education 2020 [employer]. 12/07/2022 09:34:05 Hypertension, Adult Hypertension, Adult High blood pressure (hypertension) is when the force of blood pumping through the arteries is too strong. The arteries are the blood vessels that carry blood from the heart throughout the body. Hypertension forces the heart to work harder to pump blood and may cause arteries to become narrow or stiff. Untreated or uncontrolled hypertension can cause a heart attack, heart failure, a stroke, kidneydisease, and other problems. A blood pressure reading consists of a higher number over a lower number. Ideally, your blood pressure should be below 120/80. The first ( top ) number is called the systolic pressure. It is a measure of the pressure in your arteries as your heart beats. The second ( bottom ) number is called the diastolic pressure. It is a measure of the pressure in your arteries as the heart relaxes. What are the causes? The exact cause of this condition is not known. There are some conditions that result in or are related to high blood pressure. What increases the risk? Some risk factors for high blood pressure are under your control. The following factors may make you more likely to develop this condition: Smoking. Having type 2 diabetes mellitus, high cholesterol, or both. Not getting enough exercise or physical activity. Being overweight. Having too much fat, sugar, calories, or salt (sodium) in your diet. Drinking too much alcohol. Some risk factors for high blood pressure may be difficult or impossible to change. Some of these factors include: Having chronic kidney disease. Having a family history of high blood pressure. Age. Risk increases with age. Race. You may be at higher risk if you are . Gender. Men are at higher risk than women before age 45. After age 65, women are at higher risk than men. Having obstructive sleep apnea. Stress. What are the signs or symptoms? High blood pressure may not cause symptoms. Very high blood pressure (hypertensive crisis) may cause: Headache. Anxiety. Shortness of breath. Nosebleed. Nausea and vomiting. Vision changes. Severe chest pain. Seizures. How is this diagnosed? This condition is diagnosed by measuring your blood pressure while you are seated, with your arm resting on a flat surface, your legs uncrossed, and your feet flat on the floor. The cuff of the bloodpressure monitor will be placed directly against the skin of your upper arm at the level of your heart. It should be measured at least twice using the same arm. Certain conditions can cause a difference in blood pressure between your right and left arms. Certain factors can cause blood pressure readings to be lower or higher than normal for a short period of time: When your blood pressure is higher when you are in a health care provider's office than when you are at home, this is called white coat hypertension. Most people with this condition do not need medicines. When your blood pressure is higher at home than when you are in a health care provider's office, this is called masked hypertension. Most people with this condition may need medicines to control blood pressure. If you have a high blood pressure reading during one visit or you have normal blood pressure with other risk factors, you may be asked to: Return on a different day to have your blood pressure checked again. Monitor your blood pressure at home for 1 week or longer. If you are diagnosed with hypertension, you may have other blood or imaging tests to help your health care provider understand your overall risk for other conditions. How is this treated? This condition is treated by making healthy lifestyle changes, such as eating healthy foods, exercising more, and reducing your alcohol intake. Your health care provider may prescribe medicine if lifestyle changes are not enough to get your blood pressure under control, and if: Your systolic blood pressure is above 130. Your diastolic blood pressure is above 80. Your personal target blood pressure may vary depending on your medical conditions, your age, and other factors. Follow these instructions at home: Eating and drinking Eat a diet that is high in fiber and potassium, and low in sodium, added sugar, and fat. An exampleeating plan is called the DASH (Dietary Approaches to Stop Hypertension) diet. To eat this way: ?Eat plenty of fresh fruits and vegetables. Try to fill one half of your plate at each meal with fruits and vegetables. ?Eat whole grains, such as whole-wheat pasta, brown rice, or whole-grain bread. Fill about one fourth of your plate with whole grains. ?Eat or drink low-fat dairy products, such as skim milk or low-fat yogurt. ?Avoid fatty cuts of meat, processed or cured meats, and poultry with skin. Fill about one fourth of your plate with lean proteins, such as fish, chicken without skin, beans, eggs, or tofu. ?Avoid pre-made and processed foods. These tend to be higher in sodium, added sugar, and fat. Reduce your daily sodium intake. Most people with hypertension should eat less than 1,500 mg of sodium a day. Do not drink alcohol if: ?Your health care provider tells you not to drink. ?You are , may be , or are planning to become . If you drink alcohol: ?Limit how much you use to: ?0 1 drink a day for women. ?0 2 drinks a day for men. ?Be aware of how much alcohol is in your drink. In the [place] one drink equals one 12 oz bottle of beer (355 mL), one 5 oz glass of wine (148 mL), or one 1 oz glass of hard liquor (44 mL). Lifestyle Work with your health care provider to maintain a healthy body weight or to lose weight. Ask what an ideal weight is for you. Get at least 30 minutes of exercise most days of the week. Activities may include walking, swimming, or biking. Include exercise to strengthen your muscles (resistance exercise), such as Pilates or lifting weights, as part of your weekly exercise routine. Try to do these types of exercises for 30 minutes at least 3 days a week. Do not use any products that contain nicotine or tobacco, such as cigarettes, e- cigarettes, and chewing tobacco. If you need help quitting, ask your health care provider. Monitor your blood pressure at home as told by your health care provider. Keep all follow-up visits as told by your health care provider. This is important. Medicines Take ymzf-hbz-vjeuxuw and prescription medicines only as told by your health care provider. Follow directions carefully. Blood pressure medicines must be taken as prescribed. Do not skip doses of blood pressure medicine. Doing this puts you at risk for problems and can makethe medicine less effective. Ask your health care provider about side effects or reactions to medicines that you should watch for. Contact a health care provider if you: Think you are having a reaction to a medicine you are taking. Have headaches that keep coming back (recurring). Feel dizzy. Have swelling in your ankles. Have trouble with your vision. Get help right away if you: Develop a severe headache or confusion. Have unusual weakness or numbness. Feel faint. Have severe pain in your chest or abdomen. Vomit repeatedly. Have trouble breathing. Summary Hypertension is when the force of blood pumping through your arteries is too strong. If this condition is not controlled, it may put you at risk for serious complications. Your personal target blood pressure may vary depending on your medical conditions, your age, and other factors. For most people, a normal blood pressure is less than 120/80. Hypertension is treated with lifestyle changes, medicines, or a combination of both. Lifestyle changes include losing weight, eating a healthy, low-sodium diet, exercising more, and limiting alcohol. This information is not intended to replace advice given to you by your health care provider. Make sure you discuss any questions you have with your health care provider. Document Released: 09/17/2006 Document Revised: 05/28/2019 Document Reviewed: 05/28/2019 [employer] Patient Education 2019 [employer] Follow Up Care 06/09/2022 11:25:44 With:MATEO JUAN CNP Address: [address] [place] [address] When: Unknown [facility] [place] 12-21-2022 Hospital Discharge instructions Patient Education 09/20/2022 17:20:01 Influenza, Adult Influenza, Adult Influenza, more commonly known as the flu, is a viral infection that mainly affects the respiratory tract. The respiratory tract includes organs that help you breathe, such as the lungs, nose, and throat. The flu causes many symptoms similar to the common cold along with high fever and body aches. The flu spreads easily from person to person (is contagious). Getting a flu shot (influenza vaccination) every year is the best way to prevent the flu. What are the causes? This condition is caused by the influenza virus. You can get the virus by: Breathing in droplets that are in the air from an infected person's cough or sneeze. Touching something that has been exposed to the virus (has been contaminated) and then touching your mouth, nose, or eyes. What increases the risk? The following factors may make you more likely to get the flu: Not washing or sanitizing your hands often. Having close contact with many people during cold and flu season. Touching your mouth, eyes, or nose without first washing or sanitizing your hands. Not getting a yearly (annual) flu shot. You may have a higher risk for the flu, including serious problems such as a lung infection (pneumonia), if you: Are older than 65. Are . Have a weakened disease-fighting system (immune system). You may have a weakened immune system if you: ?Have HIV or AIDS. ?Are undergoing chemotherapy. ?Are taking medicines that reduce (suppress) the activity of your immune system. Have a long-term (chronic) illness, such as heart disease, kidney disease, diabetes, or lung disease. Have a liver disorder. Are severely overweight (morbidly obese). Have anemia. This is a condition that affects your red blood cells. Have asthma. What are the signs or symptoms? Symptoms of this condition usually begin suddenly and last 4 14 days. They may include: Fever and chills. Headaches, body aches, or muscle aches. Sore throat. Cough. Runny or stuffy (congested) nose. Chest discomfort. Poor appetite. Weakness or fatigue. Dizziness. Nausea or vomiting. How is this diagnosed? This condition may be diagnosed based on: Your symptoms and medical history. A physical exam. Swabbing your nose or throat and testing the fluid for the influenza virus. How is this treated? If the flu is diagnosed early, you can be treated with medicine that can help reduce how severe theillness is and how long it lasts (antiviral medicine). This may be given by mouth (orally) or through an IV. Taking care of yourself at home can help relieve symptoms. Your health care provider may recommend: Taking ijih-jbk-ymbtubc medicines. Drinking plenty of fluids. In many cases, the flu goes away on its own. If you have severe symptoms or complications, you may be treated in a hospital. Follow these instructions at home: Activity Rest as needed and get plenty of sleep. Stay home from work or school as told by your health care provider. Unless you are visiting your health care provider, avoid leaving home until your fever has been gone for 24 hours without taking medicine. Eating and drinking Take an oral rehydration solution (ORS). This is a drink that is sold at pharmacies and retail stores. Drink enough fluid to keep your urine pale yellow. Drink clear fluids in small amounts as you are able. Clear fluids include water, ice chips, dilutedfruit juice, and low-calorie sports drinks. Eat bland, lefd-bm-alnadr foods in small amounts as you are able. These foods include bananas, applesauce, rice, lean meats, toast, and crackers. Avoid drinking fluids that contain a lot of sugar or caffeine, such as energy drinks, regular sports drinks, and soda. Avoid alcohol. Avoid spicy or fatty foods. General instructions Take ehtc-ncm-oqtrdol and prescription medicines only as told by your health care provider. Use a cool mist humidifier to add humidity to the air in your home. This can make it easier to breathe. Cover your mouth and nose when you cough or sneeze. Wash your hands with soap and water often, especially after you cough or sneeze. If soap and water are not available, use alcohol-based hand workers compensation claims supervisor. Keep all follow-up visits as told by your health care provider. This is important. How is this prevented? Get an annual flu shot. You may get the flu shot in late summer, fall, or winter. Ask your health care provider when you should get your flu shot. Avoid contact with people who are sick during cold and flu season. This is generally fall and winter. Contact a health care provider if: You develop new symptoms. You have: ?Chest pain. ?Diarrhea. ?A fever. Your cough gets worse. You produce more mucus. You feel nauseous or you vomit. Get help right away if: You develop shortness of breath or difficulty breathing. Your skin or nails turn a bluish color. You have severe pain or stiffness in your neck. You develop a sudden headache or sudden pain in your face or ear. You cannot eat or drink without vomiting. Summary Influenza, more commonly known as the flu, is a viral infection that primarily affects your respiratory tract. Symptoms of the flu usually begin suddenly and last 4 14 days. Getting an annual flu shot is the best way to prevent getting the flu. Stay home from work or school as told by your health care provider. Unless you are visiting your health care provider, avoid leaving home until your fever has been gone for 24 hours without taking medicine. Keep all follow-up visits as told by your health care provider. This is important. This information is not intended to replace advice given to you by your health care provider. Make sure you discuss any questions you have with your health care provider. Document Released: 09/14/2001 Document Revised: 12/18/2019 Document Reviewed: 03/05/2019 Elsevier Patient Education 2020 [employer] Follow Up Care 09/20/2022 16:19:46 With:MATEO JUAN CNP Address: [facility] [address] [place] [address] When: Unknown [facility] [id number] Evaluation note* Encounter Date Diagnosis Assessment Notes Treatment Notes Treatment Clinical Notes Jun, Obstructive sleep apnea (ICD-10 - G47.33) Fortunately, the patient is using and benefiting from treatment. Download was reviewed with patient, Current pressure is controlling apnea well, And we will make no changes at this time. A prescription was sent to the [facility] for new supplies throughout the year. He was encouraged to continue to use his machine nightly, throughout the entire night and for naps as this does provide clinical benefit. He will follow-up in the sleep clinic in 1 year or sooner if problems. Jun, BMI 39.0-39.9,adult (ICD-10 - Z68.39) Pt's weight is up since last visit. We discussed the benefits of weight control as a long-term resolution to TERRENCE. Weight loss strategies were reviewed in detail, including decreased overall caloric intake quantity, better food choices and portion control. Emphasis was placed budgeting calories so there can be room for appropriate quantities of favorite foods, and on making gradual progress rather than seeking short term loss. Weight reduction can be broadly beneficial and have substantial positive effects on sleep apnea severity. Jun, Primary hypertension (ICD-10 - I10) Positive effects of controlled TERRENCE and hypertension were reviewed. Control of sleep apnea will frequently have a positive effect on blood pressure control, and may additionally reduce blood pressure lability. Pt's BP is elevated today. Pt was advised to follow up with PCP, reinforced medication compliance and lifestyle modifications to dec BP. Jun, Other Call if any questions or problems. For Sleep Apnea: Patient is advised to work on healthy diet choices and appropriate servings, weight control, regular exercise as directed, and reduce fat intake. Use machine regularly, and keep up with mask changes as needed. Call if problems with mask toleration, increased sleepiness, or poor response to treatment. Take medication as prescribed, keep follow up appointments, get any testing that's been ordered in a timely fashion. Do not smoke Positive effects of weight loss on TERRENCE were reviewed [employer] Other Evaluation + Plan note Future Appointments Appointment Date:06/09/2022 11:00:00 AM Scheduled Provider:MATEO JUAN CNP Location:[facility] Appointment Type: Open Future Scheduled Tests Laboratory* PSA Screen, Total 12/05/21 * Comprehensive Metabolic Panel 12/05/21 * [facility] Appointment Date:12/07/2022 09:00:00 AM Scheduled Provider:MATEO JUAN CNP Location:[facility] Appointment Type: Open Future Scheduled Tests Laboratory* PSA Screen, Total 12/05/21 * Comprehensive Metabolic Panel 12/05/21 * Lipid Panel 12/05/21 [facility] [place] Evaluation + Plan note Future Appointments Appointment Date:10/18/2022 12:00:00 PM Scheduled Provider:Rachel Briones CNP Location:[facility] Appointment Type:BADH Screening Appointment Date:12/07/2022 09:00:00 AM Scheduled Provider:MATEO JUAN CNP Location:[facility] Appointment Type: Open Future Scheduled Tests Laboratory* PSA Screen, Total 12/05/21 * Comprehensive Metabolic Panel 12/05/21 * Lipid Panel 12/05/21 [facility] Evaluation + Plan note Future Appointments Appointment Date:12/07/2022 09:00:00 AM Scheduled Provider:MATEO JUAN CNP Location:[facility] Appointment Type:FM Open Appointment Date:12/25/2022 08:45:00 AM Scheduled Provider: [facility] Type:Surgery FT Future Scheduled Tests Laboratory* PSA Screen, Total 12/05/21 * Comprehensive Metabolic Panel 12/05/21 * Lipid Panel 12/05/21 [facility] Evaluation + Plan note Future Appointments Appointment Date:12/25/2022 08:45:00 AM Scheduled Provider: Location:[facility] Appointment Type:Surgery FT Appointment Date:06/08/2023 09:00:00 AM Scheduled Provider:MATEO JUAN CNP Location:[facility] Appointment Type: Open Future Scheduled Tests Laboratory* PSA Screen, Total 12/07/22 * CBC w/ Auto Diff 12/07/22 * Comprehensive Metabolic Panel 12/07/22 * Lipid Panel 12/07/22 [facility] Evaluation + Plan note Future Appointments Appointment Date:12/18/2023 01:40:00 PM Scheduled Provider:JOSÉ MIGUEL DIXNO CNP Location:[facility] Appointment Type:FM Open Future Scheduled Tests Laboratory* PSA Screen, Total 06/19/23 * PSA Screen, Total 12/07/22 * CBC w/ Auto Diff 12/07/22 * Comprehensive Metabolic Panel 06/19/23 * Comprehensive Metabolic Panel 12/07/22 * Lipid Panel 06/19/23 * Lipid Panel 12/07/22 [facility] Evaluation + Plan note Future Appointments Appointment Date:12/23/2024 09:00:00 AM Scheduled Provider:SERA DEL VALLE Location:[facility] Appointment Type: Open Future Scheduled Tests Laboratory* PSA Screen, Total 06/19/23 * PSA Screen, Total 12/24/23 * CBC w/ Auto Diff 12/24/23 * Comprehensive Metabolic Panel 06/19/23 * Comprehensive Metabolic Panel 12/24/23 * Lipid Panel 06/19/23 [facility] Evaluation + Plan note Future Appointments Appointment Date:12/23/2024 09:00:00 AM Scheduled Provider:SERA DEL VALLE Location:[facility] Appointment Type: Open Future Scheduled Tests Laboratory* PSA Screen, Total 06/19/23 * Comprehensive Metabolic Panel [facility]19/23 [facility]ments Appointment Date:12/23/2024 09:00:00 AM Scheduled Provider:SERA DEL VALLE Location:[facility]ment Type: Open [facility] Future Appointments Appointment Date:03/06/2024 02:30:00 PM Scheduled Provider:Millie Pinto MD Location:[facility] Appointment Type:URO New Patient Appointment Date:12/23/2024 09:00:00 AM Scheduled Provider:CISERA LIZARRAGA Location:[facility] Appointment Type:[facility] [place] Evaluation + Plan note Future Appointments Appointment Date:03/21/2024 09:00:00 AM Scheduled Provider:Rachel Mayers Location:[facility] Appointment Type:BH Intake Appointment Date:12/23/2024 09:00:00 AM Scheduled Provider:SERA DEL VALLE Location:[facility] Appointment Type:[facility] Evaluation + Plan note Future Appointments Appointment Date:03/31/2024 09:00:00 AM Scheduled Provider:Rachel Mayers Location:[facility] Appointment Type:BH Therapy 60 Appointment Date:12/23/2024 09:00:00 AM Scheduled Provider:SERA DEL VALLE Location:[facility] Appointment Type:[facility] evaluation + Plan note Future Appointments Appointment Date:04/21/2024 10:00:00 AM Scheduled Provider:Rachel Mayers Location:[facility] Appointment Type:BH Therapy 60 Appointment Date:12/23/2024 09:00:00 AM Scheduled Provider:SERA DEL VALLE Location:[facility] Appointment Type:[facility] evaluation + Plan note Future Appointments Appointment Date:05/05/2024 10:00:00 AM Scheduled Provider:Rachel Mayers Location:[facility] Appointment Type:BH Therapy 60 Appointment Date:05/19/2024 10:00:00 AM Scheduled Provider:Rachel Mayers Location:[facility] Appointment Type:BH Therapy 60 Appointment Date:06/09/2024 10:00:00 AM Scheduled Provider:Rachel Mayers Location:[facility] Appointment Type:BH Therapy 60 Appointment Date:12/23/2024 09:00:00 AM Scheduled Provider:SERA DEL VALLE Location:[facility] Appointment Type:[facility] evaluation + Plan note Future Appointments Appointment Date:05/19/2024 10:00:00 AM Scheduled Provider:Rachel Mayers [facility] [facility] Appointment Type:BH Therapy 60 Appointment Date:06/09/2024 10:00:00 AM Scheduled Provider:Rachel Mayers Location:[facility] Appointment Type:BH Therapy 60 Appointment Date:06/23/2024 10:00:00 AM Scheduled Provider:Rachel Mayers Location:[facility] Appointment Type:BH Therapy 60 Appointment Date:12/23/2024 09:00:00 AM Scheduled Provider:SERA DEL VALLE Location:[facility] Appointment Type:[facility] evalcrfftt note* Diagnosis TERRENCE on CPAP Obstructive sleep apnea (adult) (pediatric) Essential hypertension Unspecified essential hypertension Obesity, Class III, BMI 40-49.9 (morbid obesity) ([facility]) Morbid obesity documented in this encounter [facility] Work Phone: [email or web address] noteNo assessment information available [facility] Work Phone: History general Narrative - Reported* Type Description Date Medical History HTN Medical History BAD R SHOULDER Medical History PNEUMONIA Medical History Obstructive sleep apnea (adult) (pediatric) Surgical History ARTHROSCOPIC LEFT SHOULDER Surgical History LEFT KNEE Surgical History cyst removal Surgical History gastric sleeve Surgical History urethra blockage nov 2019 Surgical History TKA 03/2020 Hospitalization History asthma exacerbation Hospitalization History cellulitis Bandspeed Other Hospital course Narrative No data available for this section [facility] No data available for this section [facility] No data available for this section [facility] [place] Summary Purpose Family History No Family History Records Found Relationship Condition Age at Onset Recorded Date/T eliseo Not Specified Hypertension Unknown Coronary artery disease Unknown Congestive heart failure Unknown Relationship Condition Age at Onset Recorded Date/T eliseo Not Specified Coronary artery disease Unknown Congestive heart failure Unknown Hypertension Unknown Malignant neoplasm of breast Unknown sister Malignant neoplasm of lung Unknown Relationship Condition Age at Onset Recorded Date/T eliseo mother Coronary artery disease Unknown Congestive heart failure Unknown Hypertension Unknown Malignant neoplasm of breast Unknown sister Malignant neoplasm of lung Unknown father Malignant neoplasm of prostate Unknown Unknown Malignant neoplasm Unknown mother Hypertension Unknown Diabetes mellitus Unknown Advance Directives No Advanced Directives Records Found Advance Directive Response Recorded Date/ Time Advance Directives No March 07 8:51am Documents on File Type Date Recorded Patient Creative Developer Expl anation Advance Directives and Living Will Power of Sales And Marketing Manager Latest Code Status on File Code Status Date Activated Date Inactivated Comments Full Code 09/05/2018 10:33 AM 09/06/2018 11:56 AM Chief Complaint and Reason for Visit Chief Complaint BPH w/Obstruction,Ur etheral Stricture head lac- fall Chief Complaint BPH w/Obstruction,Ur etheral Stricture Chief Complaint Obstructive sleep ap gordo Chief Complaint R97.20 Assessments No Assessments Information AvailableNo Assessments Information Available Discharge Instructions Additional Instructions DISCHARGE INSTRUCTIONS FOR CYSTOSCOPY WHAT YOU SHOULD KNOW AFTER YOUR CYSTO The following instructions must be followed very closely: -If you need pain pills, start before pain becomes intense. Antibiotics and pain pills are frequently less upsetting to your stomach if you take them with food such as crackers or bread. -If you are having excessive or persistent pain, swelling, bleeding, nausea, vomiting, or any other problems, you should first call your surgeon for advice. If you are unable to contact your surgeon, seek help from a hospital emergency room. If you were given drugs to make you drowsy and/or pain medication, follow these instructions: -You should spend the remainder of the day and evening resting. -You should not attempt to walk, including going to the bathroom, without assistance. You maybe lightheaded from the medications that you received. -Eat light today to avoid nausea. You should be able to return to your normal diet 24-36 hours after surgery. -For the next 24 hours you should not consume alcohol, attempt to drive, use any power tools, sign important documents or make important personal or business decisions. After that, do so if you feel perfectly normal and alert. -Follow carefully any verbal or written instructions your surgeon may have given you. ADDITIONAL INSTRUCTIONS -[Drink a lot of water.] -[Take medication as prescribed.] -[Get an abdominal X-Ray prior to the appointment and bring it with you. Call the office to make arrangements for the X-Ray.] FOLLOW UP -Please call the office to arrange a follow up appointment. [ ] Additional Instructions DISCHARGE INSTRUCTIONS FOR CYSTOSCOPY WHAT YOU SHOULD KNOW AFTER YOUR CYSTO The following instructions must be followed very closely: -If you need pain pills, start before pain becomes intense. Antibiotics and pain pills are frequently less upsetting to your stomach if you take them with food such as crackers or bread. -If you are having excessive or persistent pain, swelling, bleeding, nausea, vomiting, or any other problems, you should first call your surgeon for advice. If you are unable to contact your surgeon, seek help from a hospital emergency room. If you were given drugs to make you drowsy and/or pain medication, follow these instructions: -You should spend the remainder of the day and evening resting. -You should not attempt to walk, including going to the bathroom, without assistance. You maybe lightheaded from the medications that you received. -Eat light today to avoid nausea. You should be able to return to your normal diet 24-36 hours after surgery. -For the next 24 hours you should not consume alcohol, attempt to drive, use any power tools, sign important documents or make important personal or business decisions. After that, do so if you feel perfectly normal and alert. -Follow carefully any verbal or written instructions your surgeon may have given you. ADDITIONAL INSTRUCTIONS -[Drink a lot of water.] -[Take medication as prescribed.] -[Get an abdominal X-Ray prior to the appointment and bring it with you. Call the office to make arrangements for the X-Ray.] FOLLOW UP -Please call the office to arrange a follow up appointment. [ ] Additional Source Comments (unrecognized sect ion and content) No Status Records FoundNo Status Records FoundNo Status Records FoundNo Status Records Found INFORMATION SOURCE (unrecogn ized section and content) DATE CREATED AUTHOR 09/19/2018 [facility] DATE CREATED AUTHOR AUTHOR'S ORGANIZ ATION 09/23/2019 [facility] DATE CREATED AUTHOR AUTHOR'S ORGANIZ ATION 04/25/2024 [facility] DATE CREATED AUTHOR AUTHOR'S ORGANIZ ATION 05/06/2024 Emeka Tate [facility] REASON FOR VISIT (unrecogniz ed section and content) Annual Care Teams (unrecognized sec tion and content) Team Status: Inactive Member Role Status Dates Lo Michel NP Attending Provider Active Zion Gaffney , Primary Care Provider Active Team Status: Active Member Role Status Dates Zion Gaffney , Primary Care Provider Active Team Status: Active Member Role Status Dates NON STAFF Primary Care Provider Active Team Status: Inactive Member Role Status Dates Millie Pinto MD Attending Provider Active Start : April 22, 2024 End: April 22, 2024 NON STAFF Primary Care Provider Active Start: April 22, 2024 End: April 22, 2024 Goals (unrecognized section and content) Goals may be documented in a n alternate section FOR RECORDS PERTAINING TO PATIENTS WHO ARE OR HAVE BEEN ENROLLED IN A CHEMICAL DEPENDENCY/SUBSTANCEABUSE PROGRAM, SOME INFORMATION MAY BE OMITTED. This clinical summary was aggregated from multiple sources. Caution should be exercised in using it in the provision of clinical care. This summary normalizes information from multiple sources, and as a consequence, information in this document may materially change the coding, format and clinical context of patient data. In addition, data may be omitted in some cases. CLINICAL DECISIONS SHOULD BE BASED ON THE PRIMARY CLINICAL RECORDS. [facility] [employer] [facility]. provides no warranty or guarantee of the accuracy or completeness of information in this document.
[2024-05-07] MEDS: LACTATED RINGER'S SOLUTION 1,000 ML 50 ML IV (11:42)
[2024-05-07] MEDS: CEFAZOLIN SODIUM/DEXTROSE,ISO 2 GM/50 ML PIGGYBACK IV (12:38)
[2024-05-07] MEDS: GENTAMICIN SULFATE 120 MG in 0.9 % SODIUM CHLORIDE 100 ML 206 MG IV (12:48)
--- NOTE | 2024-05-07 13:01 | P.URON_ITS ---
Urology Surgery Operative Note Operative Note Procedure Date: 05/07/24 Time Out Performed: yes Pre-op Diagnosis: 1. Elevated PSA 2. Abnormal MRI Post-op Diagnosis: same as pre-op Procedures performed: 1. MRI fusion prostate biopsy, transperineal approach 2. Ultrasound for needle prostate biopsy, transperineal approach 3. Transrectal ultrasound of prostate and seminal vesicles 4. Nerve block of prostate Anesthesia: General-LMA (Dr. Le) Primary Surgeon: Millie Pinto Complications: none Estimated blood loss (mL): 1 Findings: PERICO firm prostate left half extending slightly past midline, apex to base involved, irregular border. Moderately enlarged ALVIN 1- Left peripheral zone apex to base Hypoechoic area left peripheral zone base to apex, hypoechoic SV base. Right transition zone hypoechoic area/cyst. 70 g Left hydrocele Specimens: 1. Right posterior medial (2 cores) 2. Right posterior lateral (2 cores) 3. Right base (2 cores) 4. Right anterior lateral (2 cores) 5. Right anterior medial (2 cores) 6. Left anterior medial (2 cores) 7. Left anterior lateral (2 cores) 8. Left base (2 cores) 9. Left posterior lateral (2 cores) 10. Left posterior medial (2 cores) 11. ALVIN - left peripheral zone, apex to base (4 cores) Indications for Procedures: 64 year old male with history of elevated PSA 8.7 on 01/25/24, PSA density 0.11. MP-MRI prostate 04/22/24 showed PIRADS 5 lesion at left peripheral zone, apex to base, likely invasion to left SV and neurovascular bundle, concern for extracapsular extension. Prostate volume 77 ml. After discussion of risks/benefits of management options and biopsy approaches, he elected to proceed with MRI fusion transperineal prostate biopsy. Risks were discussed to include but not limited to bleeding, pain, infection, damage to surrounding structures, hematuria, difficulty urinating, ecchymosis, swelling, injury from positioning, and need for additional procedures. Detailed description of Procedure: After informed consent was obtained, the patient was brought to the operating suite and transferred onto the operating table in supine position. Sequential compression devices were placed on bilateral lower extremities. He received the appropriate dose of preoperative IV antibiotics and general anesthesia LMA was induced (unable to do under MAC). He was positioned in the dorsal lithotomy position with scrotum secured out of the perineum with tape, and the appropriate pressure points padded, prepped and draped in the usual fashion for this procedure. An operative timeout was performed confirming the patient's identity, procedure and safety checks. A digital rectal exam was performed noting findings above The [employer] UroNav MRI fusion biopsy system was set up over the patient's pelvis for transperineal approach of prostate biopsy. A well lubricated biplane transrectal ultrasound probe was inserted into the rectum and the prostate was aligned. The gland was visualized fully in axial and sagittal views to allow for identification of anatomy and location of the urethra as noted in findings. The skin followed by periprostatic local anesthetic lidocaine 1% was delivered. The Precision Point device was placed on the ultrasound probe for transperineal approach. After rendering of real-time images with the preoperative MRI prostate, the UroNav fusion biopsy system was used to target the region of interest. Four core needle biopsies were obtained from the region of interest. Thereafter two biopsies were obtained in a systematic fashion from 10 regions of the prostate including the medial and lateral aspects of the anterior and posterior prostate, as well as base of the right and left lobes. The ultrasound probe was removed, pressure was applied to the perineum and dressed with antibiotic ointment, fluffs and scrotal support. The patient was awakened from anesthesia and sent to PACU in stable condition. Plan: Void prior to discharge home. Follow up in 1 week for pathology review. Other Provider present: No Post Operative care instructions: see discharge instructions
[2024-05-07] MEDS: LIDOCAINE HCL 1% 100 MG/10 ML MDV INJ (13:28)
[2024-05-07] MEDS: BACITRACIN OINTMENT 28.4 GM TUBE 1 APPLIC TOPICAL (13:46)
== END 2024-05-07 15:05 | disposition home or self-care (01) ==
PROVIDERS: Visit Provider Urology
PROC: (CPT 902; principal; 2024-05-07 12:30)
DX: C61 Malignant neoplasm of prostate (principal); R97.20 Elevated prostate specific antigen [PSA]; Z87.891 Personal history of nicotine dependence; N40.1 Benign prostatic hyperplasia with lower urinary tract symptoms; G47.33 Obstructive sleep apnea (adult) (pediatric); Z96.659 Presence of unspecified artificial knee joint; Z98.84 Bariatric surgery status; E78.5 Hyperlipidemia, unspecified; I10 Essential (primary) hypertension
CPT/HCPCS: 55700; 36415; 88305; J0690; J1100; J1580; J2250; J2405; J2704; J3010